=== PATIENT | male | born 1970 | race Caucasian/White ===

== ENCOUNTER → 2020-03-20 12:35 | Outpatient (BNVA) | payer OTHER, SELFPAY | PROVIDERS: PCP Internal Medicine; Referring Provider Internal Medicine; Visit Provider Dietitian, Registered | DX: Z76.89 Persons encountering health services in other specified circumstances (principal) ==

== ENCOUNTER 2020-05-07 15:49 | Outpatient (REF) | payer OTHER, SELFPAY ==
[2020-05-07 16:51] LABS: MANUAL DIFF FLAG NO
[2020-05-07 16:52] LABS: Basophils Absolute Auto 0.1 X10*3/uL (0.0-0.2); Basophils Percent Auto 0.7 % (0-2); Eosinophils Percent Auto 0.6 % (0-4); Hematocrit 45.3 % (42-52); Hemoglobin 16.2 g/dl (14.0-18.0); Imm Gran Abs Auto 0.01 X10*3/uL (0.00-0.03); Imm Gran Pct Auto 0.1 % (0.0-0.4); Lymphocytes Absolute Auto 1.9 X10*3/uL (1.2-4.9); Lymphocytes Percent Auto 27.8 % (20-40); Mean Corpuscular HGB Conc 35.8 g/dl (31.0-36.0); Mean Corpuscular Hemoglobin 29.5 pg (27.0-33.0); Mean Corpuscular Volume 82.5 fL (80-98); Mean Platelet Volume 9.6 fL (9.4-12.4); Monocytes Absolute Auto 0.5 X10*3/uL (0.1-1.2); Monocytes Percent Auto 6.8 % (2-11); Neutrophils Absolute Auto 4.3 X10*3/uL (2.0-8.3); Platelet Count 181 X10*3/uL (160-400); Red Blood Count 5.49 X10*6/uL (4.60-5.80); Red Cell Distribution Width 12.2 % (11.0-16.0); White Blood Count 6.7 X10*3/uL (4.8-10.8)
[2020-05-07 17:09] LABS: Estimated Average Glucose 120 mg/dL; Hemoglobin A1c % 5.8 %
[2020-05-07 17:25] LABS: Alanine Aminotransferase 30 U/L (0-40); Albumin Level 4.9 g/dL (3.5-5.0); Alkaline Phosphatase 60 U/L (39-117); Anion Gap 14 (12-20); Aspartate Amino Transferase 20 U/L (5-37); Bilirubin Total 0.8 mg/dL (0.0-1.0); Blood Urea Nitrogen 20 mg/dL (9-16); Calcium 9.1 mg/dL (8.4-10.2); Carbon Dioxide 23 mmol/L (22-29); Chloride 103 mmol/L (96-108); Cholesterol 260 mg/dL; Estimated Glomerular Filt Rate > 60; Glucose Fasting 98 mg/dL (60-99); HDL Cholesterol 40 mg/dL; Sodium 136 mmol/L (135-145); Total Protein 7.6 g/dL (6.5-8.0); Triglycerides 466 mg/dL
== END 2020-05-07 15:50 | disposition home or self-care (01) ==
LOC: HO.LAB 15:49
PROVIDERS: PCP Internal Medicine; Visit Provider Internal Medicine
DX: Z00.00 Encounter for general adult medical examination without abnormal findings (principal); E11.9 Type 2 diabetes mellitus without complications
CPT/HCPCS: 36415; 80053; 80061; 83036; 85025

== ENCOUNTER → 2020-07-25 10:14 | Outpatient (BNVA) | payer OTHER, SELFPAY | PROVIDERS: PCP Internal Medicine; Visit Provider Nurse Practitioner Gerontology ==

== ENCOUNTER → 2021-01-24 12:51 | Outpatient (BNVA) | payer OTHER, SELFPAY | PROVIDERS: PCP Internal Medicine; Visit Provider Nurse Practitioner Gerontology | DX: E11.9 Type 2 diabetes mellitus without complications (principal); I10 Essential (primary) hypertension; E78.5 Hyperlipidemia, unspecified; E78.1 Pure hyperglyceridemia; E66.9 Obesity, unspecified; Z68.32 Body mass index [BMI] 32.0-32.9, adult; Z79.84 Long term (current) use of oral hypoglycemic drugs; Z79.52 Long term (current) use of systemic steroids; Z79.899 Other long term (current) drug therapy | CPT/HCPCS: 82947; 99212 ==

== ENCOUNTER → 2021-06-04 12:32 | Outpatient (BNVA) | payer OTHER, SELFPAY | PROVIDERS: PCP Internal Medicine; Visit Provider Nurse Practitioner Gerontology | DX: E11.9 Type 2 diabetes mellitus without complications (principal); E78.5 Hyperlipidemia, unspecified; E78.1 Pure hyperglyceridemia; E66.9 Obesity, unspecified; I10 Essential (primary) hypertension; Z68.32 Body mass index [BMI] 32.0-32.9, adult | CPT/HCPCS: 82947; 83036; 99212 ==

== ENCOUNTER 2022-01-03 13:53 | Emergency (ER) | payer OTHER, SELFPAY ==
[2022-01-03 14:02] VITALS: BP 150/100; BP 181/103; PULSE 87; PULSE 97; RESP 16; TEMP 36.6; O2SAT 98; O2SAT 99; BMI 34.2
[2022-01-03 14:18] LABS: MANUAL DIFF FLAG NO
[2022-01-03 14:19] LABS: Basophils Absolute Auto 0.1 X10*3/uL (0.0-0.2); Basophils Percent Auto 0.8 % (0-2); Eosinophils Absolute Auto 0.1 X10*3/uL (0.0-0.4); Eosinophils Percent Auto 0.8 % (0-4); Hematocrit 43.2 % (42.0-52.0); Hemoglobin 15.8 g/dl (14.0-18.0); Imm Gran Abs Auto 0.02 X10*3/uL (0.00-0.03); Imm Gran Pct Auto 0.3 % (0.0-0.4); Lymphocytes Absolute Auto 2.3 X10*3/uL (1.2-4.9); Mean Corpuscular HGB Conc 36.6 g/dl (31.0-36.0); Mean Corpuscular Hemoglobin 29.5 pg (27.0-33.0); Mean Corpuscular Volume 80.6 fL (80.0-98.0); Mean Platelet Volume 9.3 fL (9.4-12.4); Monocytes Absolute Auto 0.4 X10*3/uL (0.1-1.2); Monocytes Percent Auto 6.6 % (2-11); Neutrophils Absolute Auto 3.4 x10*3/uL (2.0-8.3); Neutrophils Percent Auto 54.5 % (45-73); Platelet Count 166 X10*3/uL (160-400); Red Blood Count 5.36 X10*6/uL (4.60-5.80); Red Cell Distribution Width 12.8 % (11.0-16.0); White Blood Count 6.3 X10*3/uL (4.8-10.8)
[2022-01-03 14:39] LABS: Anion Gap 16 (12-20); Blood Urea Nitrogen 18 mg/dL (9-16); Calcium 9.5 mg/dL (8.4-10.2); Carbon Dioxide 25 mmol/L (22-29); Chloride 101 mmol/L (96-108); Creatinine Clr Calc Pharmacy 90.9; Estimated Glomerular Filt Rate > 60; Glucose Random 155 mg/dL (60-115); Potassium 4.5 mmol/L (3.3-5.1); Sodium 137 mmol/L (135-145)
--- NOTE | 2022-01-03 17:00 | ECG_ITS ---
Test Reason : palpitations Blood Pressure : / mmHG Vent. Rate : 074 BPM Atrial Rate : 074 BPM P-R Int : 208 ms QRS Dur : 110 ms QT Int : 396 ms P-R-T Axes : 054 -14 008 degrees QTc Int : 439 ms Normal sinus rhythm Normal ECG When compared with ECG of 30-AUG-2019 15:16, No significant change was found Referred By: Jeff Dunbar Electronically Signed By:RENNY BILLS MD
--- NOTE | 2022-01-03 17:00 | ED.GENADULT ---
HPI - General Adult General Chief complaint: General Medical Stated complaint: anxiety Time Seen by Provider: 01/03/22 15:16 Source: patient Mode of arrival: ambulatory Limitations: no limitations History of Present Illness HPI narrative: 51-year-old male history of anxiety, type 2 diabetes, hypertension, high triglycerides hyperlipidemia presenting to the emergency department with a panic attack since this morning. Patient tells me that at this time the panic attack has subsided and he is feeling back to baseline. He tells me that earlier today he noted that he was sweaty, anxious, preoccupied, slightly short of breath, tachycardic. He tells me that this feels like his typical panic attack, he reports he used to be on fluoxetine however he is no longer on it. Patient reports that this might be attributed to home stressors, tells me he has wanted his twin daughters who is very sick, he also reports he a lot going on at home and he mentions that he got anxious after realizing that he forgot to take his blood pressure medication last night. At this time patient denies anxiety, depression, suicidal ideation, homicidal ideation, chest pain, shortness of breath, nausea, vomiting, headache, dizziness, vision changes. Onset (ago): day(s) (1) Related Data Home Medications Medication Instructions Recorded Confirmed blood sugar diagnostic #10 ea 05/07/20 01/24/21 flash glucose scanning reader #1 ea 05/07/20 01/24/21 valsartan 160 mg tablet 160 mg PO DAILY 05/07/20 06/04/21 Previous Rx's Medication Instructions Recorded methylprednisolone 4 mg tablets in See Rx Instructions PO PER PKG DIR 10/11/20 a dose pack (Medrol (Mathew)) #21 ea triamcinolone acetonide 0.5 % 1 appl topical TID #15 grams 10/11/20 topical cream atorvastatin 40 mg tablet 40 mg PO BEDTIME #30 tabs 01/19/21 flash glucose sensor (FreeStyle #2 ea 02/24/21 Jessica 2 Sensor kit) fluoxetine 20 mg capsule 20 mg PO DAILY #90 caps 08/01/21 hydrochlorothiazide 25 mg tablet 25 mg PO DAILY #90 tabs 08/28/21 amlodipine 10 mg tablet 10 mg PO DAILY #30 tabs 10/13/21 metformin 500 mg tablet 500 mg PO DAILY #30 tabs 10/15/21 acarbose 25 mg tablet 25 mg PO TID #90 tabs 10/20/21 albuterol sulfate 90 mcg/actuation 2 puff PO Q4H PRN bronchospasm 11/27/21 aerosol inhaler #8.5 grams Allergies Allergy/AdvReac Type Severity Reaction Status Date / Time No Known Allergies Allergy Verified 06/04/21 12:51 Review of Systems Review of Systems: Constitutional : No Weight loss, No Fever, No Chills, No Fatigue, No Malaise ENT/Mouth : No sore throat, No Rhinorrhea Eyes: No Eye Pain, No Swelling, No Redness Cardiovascular : No Chest Pain, No SOB, No Dyspnea on Exertion, No Orthopnea, No Edema, No Palpitations Respiratory : No Cough, No Sputum, No Wheezing Gastrointestinal : No Nausea, No Vomiting, No Diarrhea, No Constipation, No abdominal Pain, No Hematochezia, No Melena Genitourinary : No Dysuria, No Urinary Frequency, No Hematuria, Musculoskeletal : No joint pain, No Myalgias, No Joint Swelling Skin : No Skin Lesions, No rash Neuro : No Weakness, No Numbness, No Dizziness, No Headache Psych : No Anxiety/Panic, No Depression All other systems reviewed and are negative Yes all other systems are reviewed and are negative [facility] Past Medical History Attestation statement: The following information was validated with the patient. Source: old records reviewed and nursing notes reviewed Medical History Asthma Essential hypertension Hyperlipidemia LDL goal <100 Hypertriglyceridemia Obesity (BMI 30-39.9) Type 2 diabetes mellitus without complications Surgical History History of removal of skin mole Family History Family History Father CHF (congestive heart failure) Afib Myocardial infarction CVD (cardiovascular disease) Discoid lupus Mother CAD (coronary artery disease) Social History Social History Household Members: Spouse and Children Housing: House Alcohol intake: never Patient Tobacco Use Status: Never used Tobacco Second Hand Smoke Exposure: Yes Advance Directives: No Advance Directives Information Provided: No service: No Current occupational status: employed and unemployed 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 Oriented X3.? No acute distress.? Head: Normocephalic, atraumatic, no step-offs or deformities Eyes: Pupils equal, round and reactive to light.? ENT: Pharynx normal.? Neck: Normal inspection.? Neck supple.? CVS: Normal heart rate and rhythm.? Pulses normal.? Respiratory: No respiratory distress.? Breath sounds normal.? Abdomen: Soft and nontender.? Skin: Skin warm and dry.? Normal skin color.? Normal skin turgor.? Extremities: No lower extremity edema.? No calf ttp, neagtive kaci. 5/5 strength to bilateral upper and lower extremities Neuro: Oriented X 3.? No motor deficit.? No sensory deficit. CN 2-12 intact Course Reevaluation(s) Reevaluation #1: CBC within normal limits. Chemistry with no acute electrolyte abnormalities. Troponin and EKG pending. Time: 17:11 Reevaluation #2: Troponin negative. EKG pending. Vital signs stable. Time: 17:42 Reevaluation #3: Trop negative, ekg non ischemic unlikely ACS. At this time patient will be discharged home advised to follow-up with PCP. Still refusing crisis evaluation. Denies SI and HI. I will give him follow-up with [facility] and his PCP. Advised him to return with new or worsening symptoms. Time: 17:53 Medical Decision Making [facility] Narrative Medical decision making narrative: 1645 51 yo m presents s/p panic attack. Tells me he is feeling better. Tells me this happens often. Not on medication for it. Denies SI and HI. Physical examination benign. Likely panic attack. I do not suspect ACS on this patient. Patient's blood pressure was initially elevated likely secondary to anxiety however after deep breathing and lying down for a while vital signs were repeated with significant improvement. Patient also notes that he is feeling much better. Patient denies any symptoms associated with his high blood pressure earlier, denies headache, vision changes, dizziness, altered mental status. I did offer for patient to speak to the crisis team however he refused. He tells me he will follow up with his primary care provider. I offered him a short script of anxiety medication however he tells me he will follow-up with his PCP. At this time is to obtain an EKG and basic labs Medical Records Medical records reviewed: Yes I reviewed the patient's medical records. Lab Data Lab results reviewed: Yes I reviewed the patient's lab results. Result diagrams: 01/03/22 14:14 01/03/22 14:14 Labs: Lab Results 01/03/22 01/03/22 01/03/22 Range/Units 14:14 14:14 14:14 WBC 6.3 (4.8-10.8) X10*3/uL RBC 5.36 (4.60-5.80) X10*6/uL Hgb 15.8 (14.0-18.0) g/dl Hct 43.2 (42.0-52.0) % MCV 80.6 (80.0-98.0) fL MCH 29.5 (27.0-33.0) pg MCHC 36.6 H (31.0-36.0) g/dl RDW 12.8 (11.0-16.0) % Plt Count 166 (160-400) X10*3/uL MPV 9.3 L (9.4-12.4) fL Immature Gran % (Auto) 0.3 (0.0-0.4) % Neut % (Auto) 54.5 (45-73) % Lymph % (Auto) 37.0 (20-40) % Grant % (Auto) 6.6 (2-11) % Eos % (Auto) 0.8 (0-4) % Baso % (Auto) 0.8 (0-2) % Lymph # (Auto) 2.3 (1.2-4.9) X10*3/uL Grant # (Auto) 0.4 (0.1-1.2) X10*3/uL Eos # (Auto) 0.1 (0.0-0.4) X10*3/uL Baso # (Auto) 0.1 (0.0-0.2) X10*3/uL Abs Immat Gran (auto) 0.02 (0.00-0.03) X10*3/uL Absolute Neuts (auto) 3.4 (2.0-8.3) x10*3/uL Absolute Nucleated RBC 0.000 (0.0-0.012) X10*3/uL Nucleated RBC % (auto) 0.0 (0.0-0.2) /100WBC Sodium 137 (135-145) mmol/L Potassium 4.5 (3.3-5.1) mmol/L Chloride 101 (96-108) mmol/L Carbon Dioxide 25 (22-29) mmol/L Anion Gap 16 (12-20) BUN 18 H (9-16) mg/dL Creatinine 1.10 (0.5-1.4) mg/dL Estim Creat Clear Calc 90.9 Estimated GFR > 60 Random Glucose 155 H (60-115) mg/dL Calcium 9.5 (8.4-10.2) mg/dL Troponin I High Sens 3.6 (<3.5-35.0) ng/L Critical Care Time Critical Care Time Critical Care Time: No Discharge Plan Discharge Clinical Impression: Panic attack, Anxiety Patient Disposition: Home, Self-Care Instructions: Anxiety (ED), Panic Attack (ED) Additional Instructions: Take your medications as prescribed. If you were prescribed antibiotics today, it is important that you take your medication to their entirety, do not skip any doses, do not finish them early. Follow-up with your primary care provider this week. Return to the emergency department with new or worsening symptoms. Such as fevers, chills, chest pain, shortness of breath, nausea, vomiting, dizziness, headache, vision changes, lethargy In case of emergency call 911 Prescriptions: No Action atorvastatin 40 mg tablet 40 mg PO BEDTIME Qty: 30 11RF (DME) FreeStyle Jessica 2 Sensor Kit See Rx Instructions .ROUTE .MEDSUPPLY Qty: 2 11RF Rx Instructions: As directed every 2 weeks fluoxetine 20 mg capsule 20 mg PO DAILY Qty: 90 8RF hydrochlorothiazide 25 mg tablet 25 mg PO DAILY Qty: 90 1RF amlodipine 10 mg tablet 10 mg PO DAILY Qty: 30 8RF metformin 500 mg tablet 500 mg PO DAILY Qty: 30 6RF Rx Instructions: take with dinner acarbose 25 mg tablet 25 mg PO TID Qty: 90 6RF albuterol sulfate 90 mcg/actuation HFA aerosol inhaler 2 puff PO Q4H PRN (Reason: bronchospasm) Qty: 8.5 0RF valsartan 160 mg tablet 160 mg PO DAILY (DME) FreeStyle Precision Wilfrido Strips Strip See Rx Instructions .ROUTE .MEDSUPPLY Qty: 10 Rx Instructions: As directed (DME) FreeStyle Jessica 14 Day [place] Misc See Rx Instructions topical 3XW Qty: 1 Rx Instructions: As directed triamcinolone acetonide 0.5 % cream 1 appl topical TID Qty: 15 0RF methylprednisolone [Medrol (Mathew)] 4 mg tablets,dose pack See Rx Instructions PO PER PKG DIR Qty: 21 0RF Rx Instructions: PO PER PKG DIR Referrals: [facility] [Provider Group] - 1 day Lamont Latham MD [Primary Care Provider] - 2 days
[2022-01-03 17:36] LABS: Troponin-I High Sensitivity 3.6 ng/L (<3.5-35.0)
[2022-01-03 17:48] VITALS: BP 154/94; PULSE 88; RESP 14; O2SAT 100
== END 2022-01-03 17:56 | disposition home or self-care (01) ==
PROVIDERS: Physician Assistant; Emergency Provider Student in an Organized Health Care Education/Training Program; PCP Internal Medicine
DX: F41.0 Panic disorder [episodic paroxysmal anxiety] (principal); F41.9 Anxiety disorder, unspecified; I10 Essential (primary) hypertension; E78.5 Hyperlipidemia, unspecified; E11.9 Type 2 diabetes mellitus without complications; E66.9 Obesity, unspecified; Z68.34 Body mass index [BMI] 34.0-34.9, adult; Z72.89 Other problems related to lifestyle; Z63.79 Other stressful life events affecting family and household; Z79.02 Long term (current) use of antithrombotics/antiplatelets; Z79.899 Other long term (current) drug therapy; Z79.84 Long term (current) use of oral hypoglycemic drugs
CPT/HCPCS: 36415; 80048; 84484; 85025; 93005; 99283

== ENCOUNTER 2022-08-19 06:39 | Emergency (ER) | payer OTHER, SELFPAY ==
--- NOTE | 2022-08-19 | ECG_ITS ---
Test Reason : hypertension Blood Pressure : / mmHG Vent. Rate : 080 BPM Atrial Rate : 080 BPM P-R Int : 200 ms QRS Dur : 108 ms QT Int : 390 ms P-R-T Axes : 044 -21 026 degrees QTc Int : 449 ms Normal sinus rhythm Possible Left atrial enlargement Minimal voltage criteria for LVH, may be normal variant ( Thiago product ) Borderline ECG When compared with ECG of 03-JAN-2022 17:35, No significant change was found Referred By: Emily Sandoval Electronically Signed By:RENNY BILLS MD
[2022-08-19 06:44] VITALS: BP 203/119; BP 220/120; PULSE 84; PULSE 88; RESP 20; TEMP 36.4; O2SAT 97; BMI 33.0
[2022-08-19 06:56] LABS: Glucose, Whole Blood 216 mg/dL (60-115)
--- NOTE | 2022-08-19 07:13 | ED_ITS ---
HPI - General Adult General Chief complaint: General Medical Stated complaint: HIGH BP 220/110,ANXIETY PER EMS Time Seen by Provider: 08/19/22 06:49 Source: patient Mode of arrival: ambulatory Limitations: no limitations History of Present Illness HPI narrative: 52-year-old male history of anxiety, high blood pressure controlled with hydrochlorothiazide and amlodipine, woke up with this morning feeling anxious an d palpitation, checked his blood pressure was high called 911 for further evaluation, patient had similar symptoms in the past and was diagnosed with anxiety. No headache, no blurry vision, no CP, no SOB, no abdominal pain, no nausea, no vomiting, no diarrhea. Related Data Home Medications Medication Instructions Recorded Confirmed blood sugar diagnostic #10 ea 05/07/20 01/06/22 flash glucose scanning reader #1 ea 05/07/20 01/06/22 valsartan 160 mg tablet 160 mg PO DAILY 05/07/20 01/06/22 Previous Rx's Medication Instructions Recorded flash glucose sensor (FreeStyle #2 ea 02/24/21 Jessica 2 Sensor kit) amlodipine 10 mg tablet 10 mg PO DAILY #30 tabs 10/13/21 metformin 500 mg tablet 500 mg PO DAILY #30 tabs 10/15/21 acarbose 25 mg tablet 25 mg PO TID #90 tabs 10/20/21 albuterol sulfate 90 mcg/actuation 2 puff PO Q4H PRN bronchospasm 11/27/21 aerosol inhaler #8.5 grams atorvastatin 40 mg tablet 40 mg PO BEDTIME #30 tabs 01/06/22 fluoxetine 20 mg capsule 20 mg PO DAILY #90 caps 01/06/22 hydrochlorothiazide 25 mg tablet 25 mg PO DAILY #90 tabs 01/06/22 azithromycin 250 mg tablet See Rx Instructions PO .COMPLEX #6 05/20/22 tabs benzonatate 100 mg capsule 100 mg PO TID PRN cough #60 caps 05/20/22 nirmatrelvir 300 mg (150 mg See Rx Instructions PO .COMPLEX 08/01/22 x2)-ritonavir 100 mg tablet,dose #30 ea pack(EUA) (Paxlovid) Allergies Allergy/AdvReac Type Severity Reaction Status Date / Time No Known Allergies Allergy Verified 01/06/22 14:02 Review of Systems Review of Systems: All other systems are reviewed and are negative Constitutional: Reports as per HPI and Reports no additional constitutional complaints Eyes: Reports as per HPI and Reports no additional eye complaints Reports system reviewed and no additional complaints, except as documented Cardiovascular: Reports as per HPI and Reports no additional cardiovascular complaints Respiratory: Reports as per HPI and Reports no additional respiratory complaints Gastrointestinal: Reports as per HPI and Reports no additional gastrointestinal complaints Genitourinary: Reports no additional female genitourinary complaints Musculoskeletal: Reports no additional musculoskeletal complaints Skin/Breast: Reports system reviewed and no additional complaints, except as docu Psychiatric: Reports no additional psychiatric complaints Endocrine: Reports no additional endocrine complaints Hematologic/Lymphatic: Reports no additional hematologic/lymphatic complaints Allergic/Immunologic: Reports no additional allergic/immunologic complaints Reports system reviewed and no additional complaints, except as documented and Reports Abnormal speech present [facility] Past Medical History Medical History Asthma Essential hypertension Hyperlipidemia LDL goal <100 Hypertriglyceridemia Obesity (BMI 30-39.9) Type 2 diabetes mellitus without complications Surgical History History of removal of skin mole Family History Family History Father CHF (congestive heart failure) Afib Myocardial infarction CVD (cardiovascular disease) Discoid lupus Mother CAD (coronary artery disease) Social History Social History Household Members: Spouse and Children Housing: House Alcohol intake: never Patient Tobacco Use Status: Never used Tobacco Smoked in Last 30 Days: No e-Cigarette/Vaping Use: Never Used Second Hand Smoke Exposure: Yes Use of substances other than those prescribed or required for medical reasons: No Advance Directives: No Advance Directives Information Provided: No service: No Current occupational status: employed and unemployed 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 Patient declined headache, blurry vision, neck pain, chest pain or abdominal pain. Medications Administered Discontinued Medications Generic Name Dose Route Start Last Admin Trade Name Roxann PRN Reason Stop Dose Admin Amlodipine Besylate 10 mg 08/19/22 09:28 08/19/22 09:49 Amlodipine Besylate 10 Mg Tablet PO 08/19/22 09:29 10 mg ONCE ONE Administration Protocol Hydrochlorothiazide 50 mg 08/19/22 09:28 08/19/22 10:06 Hydrochlorothiazide 50 Mg Tablet PO 08/19/22 09:29 50 mg ONCE ONE Administration Protocol Lorazepam 1 mg 08/19/22 07:12 08/19/22 07:22 Lorazepam 1 Mg Tablet PO 08/19/22 07:13 1 mg ONCE ONE Administration Medical Decision Making Differential Diagnosis Differential Diagnoses: The differential diagnosis associated with the presentation includes (Anxiety, anemia, ACS, electrolyte disturbance, dehydration, acute kidney insufficiency apparent) Lab Data MDM Lab Attestation statement: I reviewed the patient's lab results. 08/19/22 07:05 08/19/22 07:05 Labs: Lab Results 08/19/22 08/19/22 08/19/22 Range/Units 06:48 07:05 07:05 WBC 5.8 (4.8-10.8) X10*3/uL RBC 5.42 (4.60-5.80) X10*6/uL Hgb 16.1 (14.0-18.0) g/dl Hct 44.3 (42.0-52.0) % MCV 81.7 (80.0-98.0) fL MCH 29.7 (27.0-33.0) pg MCHC 36.3 H (31.0-36.0) g/dl RDW 12.8 (11.0-16.0) % Plt Count 183 (160-400) X10*3/uL MPV 9.5 (9.4-12.4) fL Absolute Nucleated RBC 0.000 (0.0-0.012) X10*3/uL Nucleated RBC % (auto) 0.0 (0.0-0.2) /100WBC Sodium 137 (135-145) mmol/L Potassium 4.2 (3.3-5.1) mmol/L Chloride 103 (96-108) mmol/L Carbon Dioxide 25 (22-29) mmol/L Anion Gap 13 (12-20) BUN 19 H (9-16) mg/dL Creatinine 1.11 (0.5-1.4) mg/dL Estim Creat Clear Calc 87.5 Estimated GFR > 60 POC Glucose 216 H (60-115) mg/dL Random Glucose 213 H (60-115) mg/dL Calcium 8.9 D (8.4-10.2) mg/dL Total Bilirubin 0.6 (0.0-1.0) mg/dL AST 17 (5-37) U/L ALT 23 (0-40) U/L Alkaline Phosphatase 74 (39-117) U/L Troponin I High Sens (<3.5-35.0) ng/L Total Protein 7.3 (6.5-8.0) g/dL Albumin 4.2 (3.5-5.0) g/dL Urine Color Urine Appearance Urine pH (5.0-9.0) Ur Specific Allen (1.005-1.025) Urine Protein (Neg-Trace) mg/dL Urine Glucose (UA) (Negative) mg/dL Urine Ketones (Negative) mg/dL Urine Blood (Negative) Urine Nitrite (Negative) Ur Leukocyte Esterase (Negative) 08/19/22 08/19/22 Range/Units 07:05 07:48 WBC (4.8-10.8) X10*3/uL RBC (4.60-5.80) X10*6/uL Hgb (14.0-18.0) g/dl Hct (42.0-52.0) % MCV (80.0-98.0) fL MCH (27.0-33.0) pg MCHC (31.0-36.0) g/dl RDW (11.0-16.0) % Plt Count (160-400) X10*3/uL MPV (9.4-12.4) fL Absolute Nucleated RBC (0.0-0.012) X10*3/uL Nucleated RBC % (auto) (0.0-0.2) /100WBC Sodium (135-145) mmol/L Potassium (3.3-5.1) mmol/L Chloride (96-108) mmol/L Carbon Dioxide (22-29) mmol/L Anion Gap (12-20) BUN (9-16) mg/dL Creatinine (0.5-1.4) mg/dL Estim Creat Clear Calc Estimated GFR POC Glucose (60-115) mg/dL Random Glucose (60-115) mg/dL Calcium (8.4-10.2) mg/dL Total Bilirubin (0.0-1.0) mg/dL AST (5-37) U/L ALT (0-40) U/L Alkaline Phosphatase (39-117) U/L Troponin I High Sens 3.7 (<3.5-35.0) ng/L Total Protein (6.5-8.0) g/dL Albumin (3.5-5.0) g/dL Urine Color Yellow Urine Appearance Clear Urine pH 6.0 (5.0-9.0) Ur Specific Allen 1.010 (1.005-1.025) Urine Protein Negative (Neg-Trace) mg/dL Urine Glucose (UA) 250 H (Negative) mg/dL Urine Ketones Negative (Negative) mg/dL Urine Blood Negative (Negative) Urine Nitrite Negative (Negative) Ur Leukocyte Esterase Negative (Negative) Independent Interpretation I performed an independent interpretation of an: EKG (Normal sinus rhythm at 80 beats per minutes, LVH, left axis deviation, normal intervals, no significant change from previous EKG.) Discharge Plan Discharge Clinical Impression: Essential hypertension, Anxiety Patient Disposition: Home, Self-Care Instructions: Hypertension (ED), Anxiety (ED) Prescriptions: No Action (DME) FreeStyle Jessica 2 Sensor Kit See Rx Instructions .ROUTE .MEDSUPPLY Qty: 2 11RF Rx Instructions: As directed every 2 weeks amlodipine 10 mg tablet 10 mg PO DAILY Qty: 30 8RF metformin 500 mg tablet 500 mg PO DAILY Qty: 30 6RF Rx Instructions: take with dinner acarbose 25 mg tablet 25 mg PO TID Qty: 90 6RF albuterol sulfate 90 mcg/actuation HFA aerosol inhaler 2 puff PO Q4H PRN (Reason: bronchospasm) Qty: 8.5 0RF azithromycin 250 mg tablet See Rx Instructions PO .COMPLEX Qty: 6 0RF Rx Instructions: take 500 mg today (day 1), then 250 mg for 4 days (days 2-5) PO benzonatate 100 mg capsule 100 mg PO TID PRN (Reason: cough) Qty: 60 0RF Paxlovid (EUA) 300 mg (150 mg x 2)-100 mg tablets,dose pack See Rx Instructions PO .COMPLEX Qty: 30 0RF Rx Instructions: take TWO 150 mg tablets of nirmatrelvir with ONE 100 mg tablet of ritonavir twice daily for 5 days PO valsartan 160 mg tablet 160 mg PO DAILY (DME) FreeStyle Precision Wilfrido Strips Strip See Rx Instructions .ROUTE .MEDSUPPLY Qty: 10 Rx Instructions: As directed (DME) FreeStyle Jessica 14 Day [place] Misc See Rx Instructions topical 3XW Qty: 1 Rx Instructions: As directed atorvastatin 40 mg tablet 40 mg PO BEDTIME Qty: 30 11RF fluoxetine 20 mg capsule 20 mg PO DAILY Qty: 90 8RF hydrochlorothiazide 25 mg tablet 25 mg PO DAILY Qty: 90 1RF Referrals: Lamont Latham MD [Primary Care Provider] -
[2022-08-19 07:16] LABS: Hematocrit 44.3 % (42.0-52.0); Hemoglobin 16.1 g/dl (14.0-18.0); Mean Corpuscular HGB Conc 36.3 g/dl (31.0-36.0); Mean Corpuscular Hemoglobin 29.7 pg (27.0-33.0); Mean Corpuscular Volume 81.7 fL (80.0-98.0); Mean Platelet Volume 9.5 fL (9.4-12.4); Platelet Count 183 X10*3/uL (160-400); Red Blood Count 5.42 X10*6/uL (4.60-5.80); Red Cell Distribution Width 12.8 % (11.0-16.0); White Blood Count 5.8 X10*3/uL (4.8-10.8)
[2022-08-19] MEDS: LORazepam 1 MG TABLET PO (07:22)
--- OUTSIDE RECORDS SUMMARY | 2022-08-19 07:24 | XMS_ITS | Continuity of Care Document ---
:1970 Author Organization [facility] Address [address] [place] [id number] Care Team Providers Name Role Phone Yeison MOULTON, Lamont Fall Primary Care Physician [place] [facility] [place]): [place] - 09/14/19 [facility] [address] [place] [id number]- [facility] Attending Physician: Deloris Kwan Admitting Physician: Deloris Kwan Referring Physician: Deloris Kwan
[2022-08-19 07:31] LABS: Alanine Aminotransferase 23 U/L (0-40); Albumin Level 4.2 g/dL (3.5-5.0); Alkaline Phosphatase 74 U/L (39-117); Anion Gap 13 (12-20); Aspartate Amino Transferase 17 U/L (5-37); Bilirubin Total 0.6 mg/dL (0.0-1.0); Blood Urea Nitrogen 19 mg/dL (9-16); Calcium 8.9 mg/dL (8.4-10.2); Carbon Dioxide 25 mmol/L (22-29); Chloride 103 mmol/L (96-108); Creatinine Clr Calc Pharmacy 87.5; Estimated Glomerular Filt Rate > 60; Glucose Random 213 mg/dL (60-115); Potassium 4.2 mmol/L (3.3-5.1); Sodium 137 mmol/L (135-145); Total Protein 7.3 g/dL (6.5-8.0)
[2022-08-19 07:38] LABS: Troponin-I High Sensitivity 3.7 ng/L (<3.5-35.0)
[2022-08-19 08:02] LABS: Appearance Urine Clear; Color Urine Yellow; Glucose Urine UA 250 mg/dL (Negative); Leukocyte Esterase Urine Negative (Negative); Nitrite Urine Negative (Negative); Urine Blood Negative (Negative); Urine Ketones Negative (Negative); Urine Protein Negative (Neg-Trace)
[2022-08-19] MEDS: amLODIPine Besylate 10 MG TABLET PO (09:49)
[2022-08-19 09:50] VITALS: BP 182/113; PULSE 81; RESP 18; O2SAT 94
[2022-08-19] MEDS: hydroCHLOROthiazide 50 MG TABLET PO (10:06)
[2022-08-19 11:25] VITALS: BP 180/121; PULSE 86; RESP 14; O2SAT 97
--- NOTE | 2022-08-19 11:29 | PC.NURSE ---
Dr Sandoval aware that BP remains elevated. Pt denies CP, denies SOB, denies GOODE or blurred vision. Neuros intact. Ambulatory to BR, gait steady
== END 2022-08-19 11:33 | disposition home or self-care (01) ==
PROVIDERS: Emergency Provider Emergency Medicine; PCP Internal Medicine
DX: I10 Essential (primary) hypertension (principal); F41.9 Anxiety disorder, unspecified; E11.9 Type 2 diabetes mellitus without complications; E78.5 Hyperlipidemia, unspecified; Z79.899 Other long term (current) drug therapy; Z79.84 Long term (current) use of oral hypoglycemic drugs; Z79.02 Long term (current) use of antithrombotics/antiplatelets
CPT/HCPCS: 36415; 80053; 81003; 82947; 84484; 85027; 93005; 99283; 99284

== ENCOUNTER 2022-11-20 08:37 | Day surgery (SDC) | payer OTHER, SELFPAY ==
[2022-11-20 07:51] VITALS: BMI 31.9
[2022-11-20 08:50] VITALS: BP 116/112; PULSE 109; RESP 18; TEMP 36.9; O2SAT 96
[2022-11-20] MEDS: Lactated Ringers 1,000 ML 100 ML IVCONT (09:14)
[2022-11-20 09:18] VITALS: BP 126/89; PULSE 93
--- NOTE | 2022-11-20 09:19 | PC.NURSE ---
dr. carrion was made aware of bp and pulse results during admission. stated she would medicate patient after dr. goins and anesthesia consents were obtained. consents obtained. iv placed. bp re-checked and result was 126/89, p 93. doctor made aware and author will continue to monitor. no interventions at this time per dr. carrion. patient states feels much calmer. diaphoresis has subsided.
[2022-11-20 09:25] LABS: Glucose, Whole Blood 167 mg/dL (60-115)
--- NOTE | 2022-11-20 09:43 | MHC.SHP ---
Pre-Procedural Eval Section A Date of Service: 11/20/22 The patient is an INPATIENT: No Changes since office visit: No Cold of Flu in the past 2 weeks, No New Medical Problems, No Changes in Medication and No Patient answered all questions The History & Physical has been completed within 30 days and I have reviewed it.: Yes Section B Chief Complaint: Dysphagia, unspecified,Screening Allergies: Allergies Allergy/AdvReac Type Severity Reaction Status Date / Time No Known Allergies Allergy Verified 11/20/22 09:21 Plan I have reviewed the history and physical and performed a pertinent physical examination on my patient. No changes have occurred unless specified. Time Spent With Patient Time: Total time managing care of this patient today ____ minutes.
--- NOTE | 2022-11-20 09:45 | P.CONAN_ITS ---
Documented by User: Nohemi Sinha NP 11/19/22 10:53 HPI - Anesthesia Eval Consult details Narrative: 52yo M for Upper Endoscopy and Colonoscopy PMF Active Problems Active Problems: All Active Problems (Updated 08/27/22 @ 12:20 by Lamont Latham MD) Panic disorder (Acute) Contact dermatitis (Acute) Urticaria (Acute) Type 2 diabetes mellitus without complications (Acute) Hyperlipidemia LDL goal <100 (Acute) Hypertriglyceridemia (Acute) Essential hypertension (Acute) Obesity (BMI 30-39.9) (Acute) Physical exam (Acute) Past Medical History Medical History Asthma Depression Essential hypertension Hyperlipidemia LDL goal <100 Hypertriglyceridemia Obesity (BMI 30-39.9) Type 2 diabetes mellitus without complications Family History Family History Father CHF (congestive heart failure) Afib Myocardial infarction CVD (cardiovascular disease) Discoid lupus Mother CAD (coronary artery disease) Surgical History Surgical History History of removal of skin mole Social History Social History Household Members: Spouse and Children Housing: House Alcohol intake: never Patient Tobacco Use Status: Never used Tobacco e-Cigarette/Vaping Use: Never Used Second Hand Smoke Exposure: Yes Are you DNR?: No Advance Directives: No Advance Directives Information Provided: Yes Nutrition Risks: No Nutritional Risk service: No Current occupational status: employed and unemployed 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 Cognitive needs: No Hearing needs: No Vision needs: No Meds Allergies Allergy/AdvReac Type Severity Reaction Status Date / Time No Known Allergies Allergy Verified 11/20/22 09:21 Home Medications Medication Instructions Recorded Confirmed Last Taken Type blood sugar diagnostic #10 ea 05/07/20 09/17/22 Unknown History flash glucose scanning reader #1 ea 05/07/20 09/17/22 Unknown History valsartan 160 mg tablet 160 mg PO DAILY 05/07/20 09/17/22 Unknown History fluoxetine 20 mg capsule 20 mg PO DAILY 11/19/22 11/19/22 Unknown History Exam Exam Date and Time: November 19, 2022 105 Pertinent Lab Results Pertinent Lab Results: Laboratory Tests 08/19/22 08/19/22 07:05 07:05 WBC 5.8 Hgb 16.1 Hct 44.3 Plt Count 183 Sodium 137 Potassium 4.2 Chloride 103 Carbon Dioxide 25 BUN 19 H Creatinine 1.11 Narrative Narrative: EKG 07/2022 Vent. Rate : 080 BPM ? ? Atrial Rate : 080 BPM ?? P-R Int : 200 ms? QRS Dur : 108 ms ? ? QT Int : 390 ms ? ? ? P-R-T Axes : 044 -21 026 degrees ?? QTc Int : 449 ms ? Normal sinus rhythm Possible Left atrial enlargement Minimal voltage criteria for LVH, may be normal variant ( Thiago product ) Borderline ECG When compared with ECG of 03-JAN-2022 17:35, No significant change was found Assessment and Plan Assessment Anesthesia Assessment: Chart Reviewed Documented by User: Melody Chen DO 11/20/22 10:09 [facility] Past Medical History Medical History Asthma Depression Essential hypertension Hyperlipidemia LDL goal <100 Hypertriglyceridemia Obesity (BMI 30-39.9) Type 2 diabetes mellitus without complications Family History Family History Father CHF (congestive heart failure) Afib Myocardial infarction CVD (cardiovascular disease) Discoid lupus Mother CAD (coronary artery disease) Surgical History Surgical History History of removal of skin mole History of Problems with Anesthesia: No Social History Social History Household Members: Spouse and Children Housing: House Alcohol intake: never Patient Tobacco Use Status: Never used Tobacco e-Cigarette/Vaping Use: Never Used Second Hand Smoke Exposure: Yes Are you DNR?: No Advance Directives: No Advance Directives Information Provided: Yes Nutrition Risks: No Nutritional Risk service: No Current occupational status: employed and unemployed 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 Cognitive needs: No Hearing needs: No Vision needs: No Meds Allergies Allergy/AdvReac Type Severity Reaction Status Date / Time No Known Allergies Allergy Verified 11/20/22 09:21 Home Medications Medication Instructions Recorded Confirmed Last Taken Type blood sugar diagnostic #10 ea 05/07/20 09/17/22 Unknown History flash glucose scanning reader #1 ea 05/07/20 09/17/22 Unknown History valsartan 160 mg tablet 160 mg PO DAILY 05/07/20 09/17/22 Unknown History fluoxetine 20 mg capsule 20 mg PO DAILY 11/19/22 11/19/22 Unknown History Exam Exam Date and Time: November 20, 2022 0945 Height,Weight and Vital Signs: Vital Signs Temperature 98.4 F 11/20/22 08:50 Pulse Rate 109 H 11/20/22 08:50 Respiratory Rate 18 11/20/22 08:50 Blood Pressure 116/112 H 11/20/22 08:50 Pulse Oximetry 96 11/20/22 08:50 Oxygen Delivery Method Room Air 11/20/22 08:50 Temperature 98.4 F 11/20/22 08:50 Pulse Rate 93 11/20/22 09:18 Respiratory Rate 18 11/20/22 08:50 Blood Pressure 126/89 11/20/22 09:18 Pulse Oximetry 96 11/20/22 08:50 Oxygen Delivery Method Room Air 11/20/22 08:50 Height 5 ft 8 in Weight 95.254 kg Airway Mallampati Class: II TM Dist: >3cm Neck ROM: Full Loose/Missing/Broken Teeth: No Heart: S1S2 Lungs: CTAB Assessment and Plan Assessment Anesthesia Assessment: Anesthesia Plan Discussed and Chart Reviewed Final Anesthetic Review History of Problems with Anesthesia: No NPO: Yes ASA Class: II Final Preanesthetic Review: No Changes in Pt Med Stat, Meds/Allgs Chart Reviewed, Consent Obtained/Reviewed and Anes Risks/Benef Reviewed Patient Risk: Low Procedure Risk: Low Anesthetic Plan Anesthetic Plan: MAC: and Agree w/ Assess. and Plan Disposition: Standard PACU
[2022-11-20 10:22] VITALS: BP 122/74; PULSE 85; RESP 16; TEMP 36.3; O2SAT 92
--- NOTE | 2022-11-20 10:25 | P.BOP_ITS ---
Brief Operative Note Date of Service: 11/20/22 Pre-op diagnosis: dysphagia screening Post-op diagnosis: same Procedure: egd colonoscopy Surgeon: Jalen Michelle Anesthesia: MAC Was an Cd Reactor Operator Head used for this Procedure?: No Estimated blood loss (mL): 2
[2022-11-20 10:38] VITALS: BP 130/76; PULSE 95; RESP 16; TEMP 36.2; O2SAT 92
--- NOTE | 2022-11-20 10:55 | OP_ITS ---
DATE OF SERVICE: 11/20/2022 SURGEON: Jalen Michelle MD INDICATIONS: 1. Dysphagia. 2. Colon cancer screening. PREOPERATIVE DIAGNOSIS: POSTOPERATIVE DIAGNOSIS: PROCEDURE PERFORMED: ESTIMATED BLOOD LOSS: COMPLICATIONS: ANESTHESIA: Monitored anesthesia care. ASSISTANTS: SPECIMENS: PROCEDURES PERFORMED: 1. Upper endoscopy with biopsy. 2. Colonoscopy to the terminal ileum with biopsy and snare polypectomy. DESCRIPTION OF PROCEDURE: A history and physical were performed. The risks and benefits of the procedure were explained to the patient. Informed consent was obtained. The patient was placed in the left lateral decubitus position. The Olympus video gastroscope was introduced into the esophagus, stomach, and duodenum. Examination was performed, and the scope was removed. He was repositioned for the colonoscopy. A digital rectal exam was performed and was found to be normal. The Olympus pediatric video colonoscope was introduced into the rectum and advanced to the cecum without difficulty. The cecum was identified by transillumination, palpation, and identification of the ileocecal valve. Examination was performed and the scope was removed. He tolerated both procedures well and was taken to the recovery room in stable condition. FINDINGS: Upper endoscopy: 1. Esophagus. The esophagus was normal. The EG junction was irregular, this was biopsied. 2. Stomach. The stomach showed no evidence of masses, ulcers, or polyps. Antral biopsies were obtained to evaluate for H. pylori. 3. Duodenum. The bulb and second portion were normal. Colonoscopy: The terminal ileum was examined and appeared normal. The visualized colonic mucosa was within normal limits, without evidence of masses or ulcers. The quality of the prep was good. Two polyps were identified in the right colon. The first measured less than 5 mm, and was removed with biopsy forceps. The second was approximately 8 mm and was removed with a snare. No other polyps were seen. Retroflexed examination showed some small internal hemorrhoids. IMPRESSION: 1. Normal upper endoscopy. 2. Colon polyps. RECOMMENDATION: Follow up the biopsy results. MD MADDI Dupree/BING / [id number]
== END 2022-11-20 10:50 | disposition home or self-care (01) ==
PROVIDERS: PCP Internal Medicine; Visit Provider Internal Medicine Gastroenterology
PROC: (CPT 45385; principal; 2022-11-20 10:10)
DX: Z12.11 Encounter for screening for malignant neoplasm of colon (principal); D12.2 Benign neoplasm of ascending colon; R13.10 Dysphagia, unspecified; K64.8 Other hemorrhoids; I10 Essential (primary) hypertension; E78.00 Pure hypercholesterolemia, unspecified; E11.9 Type 2 diabetes mellitus without complications; F32.A Depression, unspecified; Z79.84 Long term (current) use of oral hypoglycemic drugs; Z79.899 Other long term (current) drug therapy
CPT/HCPCS: 45385; 45380; 43239; 82947; 88305; 88342

== ENCOUNTER 2023-07-02 09:29 | Outpatient (AMB) | payer OTHER, SELFPAY ==
[2023-07-02 09:32] VITALS: BP 168/90; PULSE 69; O2SAT 100; BMI 29.2
--- NOTE | 2023-07-02 09:32 | A.OFFPC_ITS ---
Vital Signs 07/02/23 09:32 Height 5 ft 8 in Weight 192 lb 0.4 oz BMI 29.2 BP 168/90 H Blood Pressure Location Lt brachial Position Sitting Pulse 69 Pulse Source Pulse Oximeter Pulse Oximetry (%) 100 Oxygen Delivery Method Room Air Intake Visit Reasons: DM Follow Up Intake Note: Patient is here to follow up on DM Allergies No Known Allergies Allergy (Verified 07/02/23 09:35) Medication List - Last Reconciled 07/02/23 by Lamont Latham MD acarbose 25 mg PO TID albuterol sulfate 90 mcg/actuation 2 puffs PO Q4H PRN amlodipine 10 mg PO DAILY atorvastatin 40 mg PO BEDTIME azithromycin take 500 mg today (day 1), then 250 mg for 4 days (days 2-5) PO benzonatate 100 mg PO TID PRN blood sugar diagnostic As directed flash glucose scanning reader As directed flash glucose sensor ([employer] Jessica 2 Sensor kit) As directed every 2 weeks fluoxetine 20 mg PO DAILY hydrochlorothiazide 25 mg PO DAILY metformin 500 mg PO DAILY sertraline 50 mg PO DAILY valsartan 160 mg PO DAILY Tobacco use date assessed: 07/02/23 Dental Screening Dental Screen Date: 07/02/23 HPI DM Follow Up HPI Details DM HTN and hyperlipidemia; non-compliant; should be seeing nephrology for his HTN; not monitoring his BS;poor diet; A1C over 12 PFSH Medical History Depression Hypertriglyceridemia Asthma Essential hypertension Hyperlipidemia LDL goal <100 Obesity (BMI 30-39.9) Type 2 diabetes mellitus without complications Surgical History History of removal of skin mole Family History Father CHF (congestive heart failure) Afib Myocardial infarction CVD (cardiovascular disease) Discoid lupus Mother CAD (coronary artery disease) Social History Household Members: Spouse and Children Housing: House Alcohol intake: never Patient Tobacco Use Status: Never used Tobacco e-Cigarette/Vaping Use: Never Used Second Hand Smoke Exposure: Yes service: No Current occupational status: employed and unemployed 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 How often do you have a drink containing alcohol?: Never 2. How many drinks containing alcohol do you have on a typical day when you are drinking?: 1 or 2 3. How often do you have six or more drinks on one occasion?: Never Total Score: 0 Score Reviewed/Action Taken: Yes EUGENIA-7 AMB Questionnaire EUGENIA-7 Date EUGENIA - 7 assessed: 07/02/23 Source: Developed by Drs. Tejas Almodovar, Marian Her, Tommy Valentine and colleagues, with an educational momo from [employer]. Review of Systems Const Denies chills, Denies headache(s) and Denies weight loss ENT Denies headache(s) Card Denies chest pain, Denies syncope, Denies irregular heart rhythm and Denies dyspnea Resp Denies chest congestion, Denies cough and Denies dyspnea GI Denies abdominal pain, Denies change in stool character, Denies nausea and Denies vomiting Musc Denies deformity and Denies joint swelling Neuro Denies syncope and Denies headache(s) Physical exam (Primary Care) Vital Signs: Last Vital Signs Pulse 69 07/02/23 09:32 BP 168/90 H 07/02/23 09:32 Pulse Ox 100 07/02/23 09:32 Oxygen Delivery Method Room Air 07/02/23 09:32 BMI result Body Mass Index 29.2 Tobacco/Smoking Status: Tobacco use Status Tobacco use date assessed 07/02/23 07/02/23 09:37 Patient Tobacco Use Status Never used Tobacco 07/02/23 09:37 e-Cigarette/Vaping Use Never Used 07/02/23 09:37 Thrive Assessment: Date of Thrive Assessment Date Thrive assessed 07/02/23 07/02/23 09:37 Const General: cooperative, comfortable, no acute distress and alert Neck Neck: Yes no lymphadenopathy Thyroid: Thyroid normal Resp Effort & Inspection: normal respiratory effort Auscultation: clear to auscultation bilaterally Percussion: percussion normal Cardio Jugular venous distension: no JVD Palpation: normal PMI Rate: regular rate Rhythm: regular rhythm Heart sounds: S1 normal heart sound present and S2 normal heart sound present GI Inspection: Yes normal to inspection Palpation (GI): No hepatosplenomegaly present Skin General skin exam: no rashes or lesions noted Extrem General: Yes no clubbing, cyanosis or edema Results AMB Hemoglobin A1c AMB Hemoglobin A1c 12.7 % Last Edit by LUCIANO Cook on 07/02/23 09:40 Results Reviewed Results Reviewed: Laboratory Last Values Hgb A1c (Clinic) 12.7 % (4.0-6.0) H 07/02/23 08:43 Assessment and Plan Assessment & Plan (1) Essential hypertension: Code(s): I10 - Essential (primary) hypertension Plan: ref neph (2) Hyperlipidemia LDL goal <100: Code(s): E78.5 - Hyperlipidemia, unspecified Plan: same rx (3) Type 2 diabetes mellitus without complications: Code(s): E11.9 - Type 2 diabetes mellitus without complications Qualifiers: 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 insulin use: without fpc use Qualified Code(s): E11.9 - Type 2 diabetes mellitus without complications Plan: increase metformin Orders: Orders AMB Hemoglobin A1c Today E11.9 - Type 2 diabetes mellitus without complications Referrals Nephrology Referral I10 - Essential (primary) hypertension Medications: Changed From metformin take with dinner 500 mg PO DAILY 30 tabs 6RF E11.9 - Type 2 diabetes mellitus without complications To metformin take with dinner 500 mg PO BID 60 tabs 6RF E11.9 - Type 2 diabetes mellitus without complications Refilled flash glucose sensor ([employer] Jessica 2 Sensor kit) As directed every 2 weeks 2 ea 11RF Coding Level of Care Code Est Pt Level 4 (81165) Diagnoses Essential hypertension I10 Hyperlipidemia LDL goal <100 E78.5 Type 2 diabetes mellitus without complication, without long-term current use of insulin E11.9 Diabetes mellitus fpc insulin use: without equipment operator intermodal yard use
== END 2023-07-02 09:58 | disposition home or self-care (01) ==
PROVIDERS: PCP Internal Medicine; Visit Provider Internal Medicine
DX: I10 Essential (primary) hypertension (principal); E78.5 Hyperlipidemia, unspecified; E11.9 Type 2 diabetes mellitus without complications
CPT/HCPCS: 83036; 99214

== ENCOUNTER 2023-09-16 08:54 | Outpatient (AMB) | payer OTHER, SELFPAY ==
[2023-09-16 08:55] VITALS: BP 146/98; PULSE 105; O2SAT 97; BMI 27.7
--- NOTE | 2023-09-16 08:55 | MHC.PC.OV ---
Vital Signs 09/16/23 08:55 Height 5 ft 8 in Weight 182 lb 0.4 oz BMI 27.7 BP 146/98 H Blood Pressure Location Lt brachial Position Sitting Pulse 105 H Pulse Source Pulse Oximeter Pulse Oximetry (%) 97 Oxygen Delivery Method Room Air Intake Visit Reasons: weight loss, low BP Steam Conditioner Operator Required: No Allergies No Known Allergies Allergy (Verified 07/02/23 09:35) Medication List - Last Reconciled 09/16/23 by Lamont Latham MD acarbose 25 mg PO TID albuterol sulfate 90 mcg/actuation 2 puffs PO Q4H PRN atorvastatin 40 mg PO BEDTIME benzonatate 100 mg PO TID PRN blood sugar diagnostic As directed flash glucose scanning reader As directed flash glucose sensor ([employer] Jessica 2 Sensor kit) As directed every 2 weeks fluoxetine 20 mg PO DAILY hydrochlorothiazide 25 mg PO DAILY metformin 500 mg PO BID sertraline 50 mg PO DAILY valsartan 80 mg PO DAILY Tobacco use date assessed: 09/16/23 Dental Screening Dental Screen Date: 07/02/23 HPI weight loss, low BP HPI Details mid back pain and weight loss for a few months; some dyspepsia PFSH Medical History (Updated 07/02/23 @ 11:27 by Lamont Latham MD) Depression Hypertriglyceridemia Asthma Essential hypertension Hyperlipidemia LDL goal <100 Obesity (BMI 30-39.9) Type 2 diabetes mellitus without complications Surgical History History of removal of skin mole Family History Father CHF (congestive heart failure) Afib Myocardial infarction CVD (cardiovascular disease) Discoid lupus Mother CAD (coronary artery disease) Social History Household Members: Spouse and Children Housing: House Alcohol intake: never Patient Tobacco Use Status: Never used Tobacco e-Cigarette/Vaping Use: Never Used Second Hand Smoke Exposure: Yes service: No Current occupational status: employed and unemployed 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 How often do you have a drink containing alcohol?: Never 2. How many drinks containing alcohol do you have on a typical day when you are drinking?: 1 or 2 3. How often do you have six or more drinks on one occasion?: Never Total Score: 0 Score Reviewed/Action Taken: Yes EUGENIA-7 AMB Questionnaire EUGENIA-7 Date EUGENIA - 7 assessed: 07/02/23 Source: Developed by Drs. Tejas Almodovar, Marian Her, Tommy Valentine and colleagues, with an educational momo from [employer]. Review of Systems Const Denies chills, Denies headache(s) and Denies weight loss ENT Denies headache(s) Card Denies chest pain, Denies syncope, Denies irregular heart rhythm and Denies dyspnea Resp Denies chest congestion, Denies cough and Denies dyspnea GI Denies change in stool character, Denies nausea and Denies vomiting Musc Denies deformity and Denies joint swelling Neuro Denies syncope and Denies headache(s) Physical exam (Primary Care) Vital Signs: Last Vital Signs Pulse 105 H 09/16/23 08:55 BP 146/98 H 09/16/23 08:55 Pulse Ox 97 09/16/23 08:55 Oxygen Delivery Method Room Air 09/16/23 08:55 BMI result Body Mass Index 27.7 Tobacco/Smoking Status: Tobacco use Status Tobacco use date assessed 09/16/23 09/16/23 09:03 Patient Tobacco Use Status Never used Tobacco 09/16/23 09:03 e-Cigarette/Vaping Use Never Used 09/16/23 09:03 Thrive Assessment: Date of Thrive Assessment Date Thrive assessed 07/02/23 09/16/23 09:03 Const General: cooperative, comfortable, no acute distress and alert Neck Neck: Yes no lymphadenopathy Thyroid: Thyroid normal Resp Effort & Inspection: normal respiratory effort Auscultation: clear to auscultation bilaterally Percussion: percussion normal Cardio Jugular venous distension: no JVD Palpation: normal PMI Rate: regular rate Rhythm: regular rhythm Heart sounds: S1 normal heart sound present and S2 normal heart sound present GI Inspection: Yes normal to inspection Palpation (GI): No hepatosplenomegaly present Skin General skin exam: no rashes or lesions noted Extrem General: Yes no clubbing, cyanosis or edema Results AMB Hemoglobin A1c AMB Hemoglobin A1c 14.0 % Last Edit by LUCIANO Cook on 09/16/23 09:10 14.0> Neena Campbell 09/16/23 09:10 Results Reviewed Results Reviewed: Laboratory Last Values Hgb A1c (Clinic) 14.0 % (4.0-6.0) H 09/16/23 09:03 Assessment and Plan Assessment & Plan (1) Epigastric pain: Code(s): R10.13 - Epigastric pain Plan: US Orders: Orders AMB Hemoglobin A1c Today E11.9 - Type 2 diabetes mellitus without complications US abdomen complete Today R10.9 - Unspecified abdominal pain Coding Level of Care Code Est Pt Level 3 (75190) Diagnoses Epigastric pain R10.13
== END 2023-09-16 09:25 | disposition home or self-care (01) ==
PROVIDERS: PCP Internal Medicine; Visit Provider Internal Medicine
DX: E11.9 Type 2 diabetes mellitus without complications (principal); R10.13 Epigastric pain
CPT/HCPCS: 83036; 99213

== ENCOUNTER 2023-09-23 10:20 | Outpatient (REF) | payer OTHER, SELFPAY ==
--- NOTE | ~2023-09-23 | US_ITS ---
EXAMINATION: US ABDOMEN COMPLETE CLINICAL INFORMATION: Epigastric and mid back pain. COMPARISON: CTA abdomen dated 08/10/2018. TECHNIQUE: Real-time imaging of the abdominal viscera. FINDINGS: PANCREAS: Limited. The visualized pancreatic head and body are normal in appearance. The remainder of the pancreas is obscured from visualization by the overlying bowel gas. ABDOMINAL AORTA: The proximal, mid, and distal segments are normal in caliber. INFERIOR VENA CAVA: Visualized portions are normal. LIVER: Normal. The liver is normal in size. The liver contour is normal. Parenchymal echogenicity is normal. No focal hepatic lesion. There is no intrahepatic biliary duct dilatation seen. GALLBLADDER: Normal. The gallbladder is physiologically distended without evidence of stones, sludge, polyps, wall thickening or pericholecystic fluid. COMMON BILE DUCT: Normal in caliber measuring 0.4 cm in diameter. RIGHT KIDNEY: Normal. No hydronephrosis. No renal calculi or focal parenchymal lesions. The kidney measures 10.0 cm in maximum dimension. LEFT KIDNEY: Normal. No hydronephrosis. No renal calculi or focal parenchymal lesions. The kidney measures 10.9 cm in maximum dimension. SPLEEN: Normal. The spleen measures 13.3 cm in maximum dimension. FREE FLUID: None. US/US abdomen complete IMPRESSION: There is mild splenomegaly. The examination is otherwise unremarkable.
== END 2023-09-23 10:21 | disposition home or self-care (01) ==
LOC: HO.US 10:20
PROVIDERS: PCP Internal Medicine; Visit Provider Internal Medicine
DX: R10.9 Unspecified abdominal pain (principal)
CPT/HCPCS: 76700

== ENCOUNTER 2023-09-23 11:46 | Outpatient (REF) | payer OTHER, SELFPAY ==
[2023-09-23 13:26] LABS: Appearance Urine Clear; Color Urine Yellow; Glucose Urine UA >=1000 mg/dL (Negative); Leukocyte Esterase Urine Negative (Negative); Nitrite Urine Negative (Negative); PH 5.5 (5.0-9.0); Specific Gravity - Urine 1.025 (1.005-1.025); UMIC TRIGGER UA YES; Urine Blood Negative (Negative); Urine Ketones Negative (Negative); Urine Protein Negative (Neg-Trace)
[2023-09-23 13:31] LABS: Anion Gap 14 (12-20); Bacteria Urine None Seen (None Seen); Blood Urea Nitrogen 23 mg/dL (9-16); Calcium 9.7 mg/dL (8.4-10.2); Carbon Dioxide 26 mmol/L (22-29); Chloride 101 mmol/L (96-108); Estimated Glomerular Filt Rate > 60; Hyaline Casts Urine 0-2 /LPF (0-2); Potassium 3.8 mmol/L (3.3-5.1); RBC Urine 0-2 /HPF (0-2); Sodium 137 mmol/L (135-145); Squamous Epithelial Cell Urine 0-2 /HPF (0-2); WBC Urine 0-5 /HPF (0-5)
[2023-09-23 14:40] LABS: Creatinine Urine 108.63 mg/dL; Microalbum/Creatinine Ratio Ur 9.2 ug/mg cr (<30); Total Protein Urine Random < 7 mg/dL (<12)
== END 2023-09-23 11:47 | disposition home or self-care (01) ==
LOC: HO.10HDL 11:46
PROVIDERS: Visit Provider Internal Medicine Nephrology
DX: I10 Essential (primary) hypertension (principal)
CPT/HCPCS: 36415; 80051; 81001; 82043; 82310; 82565; 82570; 84156; 84520

== ENCOUNTER 2023-11-15 09:37 | Outpatient (AMB) | payer OTHER, SELFPAY ==
[2023-11-15 09:41] VITALS: BP 120/82; PULSE 112; O2SAT 98; BMI 27.9
--- NOTE | 2023-11-15 09:41 | MHC.PC.OV ---
Vital Signs 11/15/23 09:41 Height 5 ft 8 in Weight 183 lb 8 oz BMI 27.9 BP 120/82 Blood Pressure Location Lt brachial Position Sitting Pulse 112 H Pulse Source Pulse Oximeter Pulse Oximetry (%) 98 Oxygen Delivery Method Room Air Intake Visit Reasons: 2 Month F/U Dental Technician Instructor Required: No Behavioral Health Director: Not Required per policy Accompanied by: Self / Same As Patient Allergies No Known Allergies Allergy (Verified 11/15/23 09:41) Tobacco use date assessed: 09/16/23 Dental Screening Dental Screen Date: 07/02/23 HPI 2 Month F/U HPI Details HTN on Rx; doing well and compliant [facility] Medical History (Updated 07/02/23 @ 11:27 by Lamont Latham MD) Depression Hypertriglyceridemia Asthma Essential hypertension Hyperlipidemia LDL goal <100 Obesity (BMI 30-39.9) Type 2 diabetes mellitus without complications Surgical History History of removal of skin mole Family History Father CHF (congestive heart failure) Afib Myocardial infarction CVD (cardiovascular disease) Discoid lupus Mother CAD (coronary artery disease) Social History Household Members: Spouse and Children Housing: House Alcohol intake: never Patient Tobacco Use Status: Never used Tobacco e-Cigarette/Vaping Use: Never Used Second Hand Smoke Exposure: Yes service: No Current occupational status: employed and unemployed 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 1. Little interest or pleasure in doing things: not at all 2. Feeling down, depressed, or hopeless: not at all 3. Trouble falling or staying asleep, or sleeping too much: not at all 4. Feeling tired or having little energy: not at all 5. Poor appetite or overeating: not at all 6. Feeling bad about yourself - or that you are a failure or have let yourself or your family down: not at all 7. Trouble concentrating on things, such as reading the newspaper or watching television: not at all 8. Moving or speaking so slowly that other people could have noticed. Or the opposite - being so fidgety or restless that you have been moving around a lot more than usual: not at all 9. Thoughts that you would be better off or of hurting yourself in some way: not at all Total score: 0 Depression Screening Interpretation: Negative Depression Screening Done: Yes 34903 - PHQ-9 Billing: Yes Source: Developed by Drs. Tejas Almodovar, Tommy Linares and colleagues, with an educational momo from [employer]. Thrive Questionnaire Date Thrive assessed: 07/02/23 EUGENIA-7 AMB Questionnaire EUGENIA-7 Date EUGENIA - 7 assessed: 07/02/23 Source: Developed by Drs. Tejas Almodovar, Marian Her, Tommy Valentine and colleagues, with an educational momo from [employer]. Review of Systems Const Denies chills, Denies headache(s) and Denies weight loss ENT Denies headache(s) Card Denies chest pain, Denies syncope, Denies irregular heart rhythm and Denies dyspnea Resp Denies chest congestion, Denies cough and Denies dyspnea GI Denies abdominal pain, Denies change in stool character, Denies nausea and Denies vomiting Musc Denies deformity and Denies joint swelling Neuro Denies syncope and Denies headache(s) Physical exam (Primary Care) Vital Signs: Last Vital Signs Pulse 112 H 11/15/23 09:41 BP 120/82 11/15/23 09:41 Pulse Ox 98 11/15/23 09:41 Oxygen Delivery Method Room Air 11/15/23 09:41 BMI result Body Mass Index 27.9 Tobacco/Smoking Status: Tobacco use Status Tobacco use date assessed 09/16/23 11/15/23 09:42 Patient Tobacco Use Status Never used Tobacco 11/15/23 09:42 e-Cigarette/Vaping Use Never Used 11/15/23 09:42 PHQ-9: PHQ-9 Score PHQ-9: Total score 0 11/15/23 09:42 Depression Screening Interpretation: Negative Thrive Assessment: Date of Thrive Assessment Date Thrive assessed 07/02/23 11/15/23 09:42 Const General: cooperative, comfortable, no acute distress and alert Neck Neck: Yes no lymphadenopathy Thyroid: Thyroid normal Resp Effort & Inspection: normal respiratory effort Auscultation: clear to auscultation bilaterally Percussion: percussion normal Cardio Jugular venous distension: no JVD Palpation: normal PMI Rate: regular rate Rhythm: regular rhythm Heart sounds: S1 normal heart sound present and S2 normal heart sound present GI Inspection: Yes normal to inspection Palpation (GI): No hepatosplenomegaly present Skin General skin exam: no rashes or lesions noted Extrem General: Yes no clubbing, cyanosis or edema Assessment and Plan Assessment & Plan (1) Essential hypertension: Code(s): I10 - Essential (primary) hypertension Plan: stable; same rx Orders: Orders Comprehensive [place]. Panel Fast Today Z13.9 - Encounter for screening, unspecified Hemoglobin A1c Today R73.9 - Hyperglycemia, unspecified Coding Level of Care Code Est Pt Level 3 (50682) Diagnoses Essential hypertension I10
== END 2023-11-15 09:58 | disposition home or self-care (01) ==
PROVIDERS: PCP Internal Medicine; Visit Provider Internal Medicine
DX: I10 Essential (primary) hypertension (principal)
CPT/HCPCS: 99213

== ENCOUNTER 2024-02-04 12:47 | Outpatient (AMB) | payer OTHER, SELFPAY ==
--- NOTE | 2024-02-04 12:50 | A.OFFVIS_ITS ---
Vital Signs 02/04/24 12:53 02/04/24 13:49 Height 5 ft 8 in Weight 182 lb 1.629 oz BMI 27.7 BP 188/68 H 162/84 H Blood Pressure Location Lt brachial Rt brachial Position Sitting Sitting Pulse 101 H Pulse Source Pulse Oximeter Intake Visit Reasons: DM Intake Note: New patient present today for Diabetes Mellitus Management. Last Diabetic Eye exam: 09/17/2023 Last Podiatry Visit: Doesn't have one Random Glucose: 379 mg/dl HgA1C: >14% Development Vice President Required: No Accompanied by: Self / Same As Patient Allergies No Known Allergies Allergy (Verified 02/04/24 12:56) HPI Comments Details: Patient is a 53 year old male with DM type 2 diagnosed July 2019 who presents for management of diabetes. He was last seen in the endocrinology department in 2021. Does not have functioning supplies to check BG. Hemoglobin a1c >14%. 14% August 2023. POC 379 no symptoms of hyperglycemia today. Current medication regimen: metformin 500 mg BID, Acarbose 25 mg TID (not taking this, causes nausea and doesn't feel well). Glipizide was discontinued due to hypoglycemia in the past. Compliance issues: see above No alcohol or tobacco use. Diet: Breakfast-doesn't eat breakfast usually, coffee (real creamer and splenda), once a week a protein in the morning Lunch- 3 pm sandwich with protein and cheese Dinner-shredded or grilled chicken, starch, vegetables Snacks/desserts: no soda or juice, drinks mostly water, cookies, ice cream Hypoglycemia symptoms: none Hyperglycemia symptoms: none Eye exam: UTD Dr. Rivera Microvascular complications: neuropathy Macrovascular complications: none Hypertension: treated with Valsartan 80 mg, HCTZ 25 mg. BP elevated 188/68 initially. Improved when rechecked. Patient very anxious at appointment. He is followed by nephrology for HTN. BP 120/October. Hyperlipidemia: treated with Atorvastatin 40 mg. ROS: Constitutional: No unexplained weight loss (+intentional weight loss), fever, chills, fatigue or night sweats. Eyes: No vision changes, blurry vision, double vision Respiratory: No shortness of breath Cardiovascular: No chest pain Gastrointestinal: No anorexia, nausea, vomiting or diarrhea. No abdominal pain Neurologic: No headache, dizziness, syncope Endocrine: No cold or heat intolerance. No polyuria or polydipsia. Physical exam: Constitutional: Alert, in no distress. Head: Normocephalic. Eyes: Pupils are equal, round and reactive to light. Extraocular muscles intact. Neck: Supple, Full range of motion. No lymphadenopathy. No palpable thyroid masses. Respiratory: Clear to auscultation. Cardiovascular: S1 S2 regular. No murmurs. Right foot: Warm and well perfused. No clubbing, cyanosis or edema. DP pulse 3+. Decreased vibratory sensation. Intact sensation to monofilament. Left foot: Warm and well perfused. No clubbing, cyanosis or edema. DP pulse 3+. Decreased vibratory sensation. Intact sensation to monofilament. [facility] Medical History (Updated 02/04/24 @ 14:02 by EMIL Stevens) Type II diabetes mellitus with neurological manifestations Depression Hypertriglyceridemia Asthma Essential hypertension Hyperlipidemia LDL goal <100 Obesity (BMI 30-39.9) Type 2 diabetes mellitus without complications Surgical History History of removal of skin mole Family History Father CHF (congestive heart failure) Afib Myocardial infarction CVD (cardiovascular disease) Discoid lupus Mother CAD (coronary artery disease) Social History Household Members: Spouse and Children Housing: House Alcohol intake: never Patient Tobacco Use Status: Never used Tobacco e-Cigarette/Vaping Use: Never Used Second Hand Smoke Exposure: Yes service: No Current occupational status: employed and unemployed 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 Cognitive needs: No Hearing needs: No Vision needs: No Physical Exam Vital Signs: Last Vital Signs Pulse 101 H 02/04/24 12:53 BP 188/68 H 02/04/24 12:53 BMI result Body Mass Index 27.7 Results AMB Hemoglobin A1c AMB Hemoglobin A1c > 14 % Last Edit by LUCIANO Mendoza on 02/04/24 13:17 Results Reviewed Results Reviewed: Laboratory Last Values Glucose (Clinic) 379 mg/dL (60-115) H* 02/04/24 12:59 Laboratory Tests 11/10/19 01/06/22 07/02/23 11:50 14:16 08:43 Creatinine Estimated GFR Hgb A1c (Clinic) 6.2 H 12.7 H Urine Creatinine Urine Microalbumin Microalb/Creat Ratio Islet Cell Ab Screen NEGATIVE Anti-IA2 Antibody <5.4 EUGENIA Antibody <5 09/16/23 09/23/23 09:03 11:52 Creatinine 1.16 Estimated GFR > 60 Hgb A1c (Clinic) 14.0 H Urine Creatinine 108.63 Urine Microalbumin 10.0 Microalb/Creat Ratio 9.2 Islet Cell Ab Screen Anti-IA2 Antibody EUGENIA Antibody Assessment & Plan Assessment & Plan (1) Type II diabetes mellitus with neurological manifestations: Code(s): E11.49 - Type 2 diabetes mellitus with other diabetic neurological complication Category: Medical (2) Essential hypertension: Code(s): I10 - Essential (primary) hypertension Category: Medical Plan In summary this is a 53 year old male with poorly controlled Type II DM here for diabetic management with hyperglycemia. Discussed pathophysiology of Type II Diabetes Mellitus with the patient in detail.? 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 Referred to malt house loader. Patient not taking Acarbose due to SEs. Remain off medication. Switch Metformin to ER and increase to 1000 mg BID. Start Lantus 10 units at bedtime. Submitted Rx for Ozempic 0.25 mg. The patient denies contraindications to GLP-1 receptor agonist. We reviewed the FDA preliminary evaluation that has not found evidence that these medications cause suicidal thoughts or actions, but the investigation is ongoing. If the patient develops these symptoms they will stop taking the medication immediately and contact the office. We reviewed more common side effects such as bloating, constipation, nausea and vomiting. We reviewed the administration and dosing schedule. Sent jessica 3 and freestyle lite monitor. May need to consider prandial insulin, but we will have a short term follow up and see how he is doing with these medication changes first. He has glucose tablets at home. Reviewed treatment of hypoglycemia and given written instructions. Reviewed treatment of hyperglycemia and when to go to ER for high BG. Patient we recheck BP at home and bring readings to next visit or contact his it applications developer if they continue to be elevated. Follow up in 2 weeks for diabetes. Orders: Orders AMB Hemoglobin A1c Today E11.9 - Type 2 diabetes mellitus without complications, Z13.9 - Encounter for screening, unspecified Referrals Electronic Sensing Equipment Assembler Nutrition Referral E11.9 - Type 2 diabetes mellitus without complications Medications: New insulin glargine (Lantus Solostar U-100 Insulin) 10 units (0.1 mL) subcut QPM 15 mL 5RF blood-glucose sensor (FreeStyle Jessica 3 Sensor device) apply new sensor every 14 days as directed 2 ea 11RF blood-glucose meter,continuous (FreeStyle Jessica 3 [place]) as directed 1 ea 0RF lancets (FreeStyle Lancets) Use as directed to monitor glucose up to 5 times daily 200 ea 5RF metformin ER 1,000 mg (2 x 500 mg) PO BID 90 days 360 tabs 1RF semaglutide (Ozempic) for 4 weeks 0.25 mg (0.368 mL) subcut QWEEK 3 mL 0RF pen needle, diabetic (BD Lyudmila 2nd Gen Pen Needle) As directed 200 ea 5RF blood sugar diagnostic (FreeStyle Lite Strips) As directed to check glucose up to 5 times daily 200 ea 5RF blood sugar diagnostic (FreeStyle Lite Strips) As directed to check glucose up to 5 times daily 200 ea 5RF Discontinued acarbose Discontinued Reason: Doctor's Order 25 mg PO TID 90 tabs 6RF E11.9 - Type 2 diabetes mellitus without complications Patient Instructions: Start Lantus 10 units at bedtime. Start new prescription for Metformin ER 500 mg 2 tablets twice daily. I submitted Ozempic 0.25 mg once weekly - this will require us to do a prior authorization and may not be available immediately at the pharmacy. I sent the freestle jessica 3 and lite meter. If you experience low blood sugar, treat this by eating a chewable fruit candy like skittles or jelly beans (about 8 pieces), 4 ounces (1/2 cup) of fruit juice (not diet), 1 tablespoon of honey or 4 glucose tablets. If your blood sugar is under 50, take double the amount of one of the above. Recheck your blood sugar in 15 minutes. Coding Level of Care Code Est Pt Level 5 (05912) Complex EM visit Add On G2211 Diagnoses Type II diabetes mellitus with neurological manifestations E11.49 Essential hypertension I10 Time Spent (min) 60 Comment reviewing chart, direct patient care, completing documentation
[2024-02-04 12:53] VITALS: BP 188/68; PULSE 101; BMI 27.7
[2024-02-04 13:05] LABS: Glucose, Whole Blood 379 mg/dL (60-115)
[2024-02-04 13:49] VITALS: BP 162/84
== END 2024-02-04 13:55 | disposition home or self-care (01) ==
PROVIDERS: PCP Internal Medicine; Visit Provider Physician Assistant Medical
DX: E11.49 Type 2 diabetes mellitus with other diabetic neurological complication (principal); I10 Essential (primary) hypertension
CPT/HCPCS: 99215; 99417; G2211

== ENCOUNTER → 2024-02-04 12:47 | Outpatient (BNVA) | payer OTHER, SELFPAY | PROVIDERS: PCP Internal Medicine; Visit Provider Physician Assistant Medical | DX: E11.49 Type 2 diabetes mellitus with other diabetic neurological complication (principal); I10 Essential (primary) hypertension | CPT/HCPCS: 82947; 83036; 99212 ==

== ENCOUNTER 2024-02-18 10:49 | Outpatient (AMB) | payer OTHER, SELFPAY ==
[2024-02-18 10:51] VITALS: PULSE 101; BMI 27.4
--- NOTE | 2024-02-18 10:51 | A.OFFVIS_ITS ---
Vital Signs 02/18/24 10:51 Height 5 ft 8 in Weight 180 lb 1.883 oz BMI 27.4 BMI Reason not done Patient refused/unable Pulse 101 H Pulse Source Pulse Oximeter Intake Visit Reasons: diabetes Intake Note: Patient present today to follow up on Type 2 Diabetes Mellitus. Last Diabetic Eye exam: 2022 Last Podiatry Visit: Doesn't have one Random Glucose: 551 mg/dl @ 10:57 am 505 mg/dl @ 11:52 am 471 mgldl @ 12:23 pm HgA1C: >14.0% 02/04/24 Legal Arbitrator Required: No Accompanied by: Self / Same As Patient Allergies No Known Allergies Allergy (Verified 02/18/24 10:55) HPI Comments Details: Patient is a 53 year old male with DM type 2 diagnosed July 2019 who presents for management of diabetes. He was last seen by me on 02/04/2024. He picked up lancets and test strips from pharmacy. Did not receive glucometer. He picked up Lantus and the increased dose of metformin, but he did not start taking them yet. He is only taking metformin 500 mg twice a day. Hemoglobin a1c >14%. 14% August 2023. POC 551 -denies symptoms of hyperglycemia today. Ketone urine dipstick with small ketones. Acarbose caused nausea and didn't feel well. Glipizide was discontinued due to hypoglycemia in the past. Compliance issues: see above No alcohol or tobacco use. Hypoglycemia symptoms: none Hyperglycemia symptoms: none Eye exam: UTD Dr. Rivera Microvascular complications: neuropathy Macrovascular complications: none Hypertension: treated with Valsartan 80 mg, HCTZ 25 mg. Patient adamantly refused to have blood pressure checked today. Hyperlipidemia: treated with Atorvastatin 40 mg. ROS: Constitutional: No unexplained weight loss (+intentional weight loss), fever, chills, fatigue or night sweats. Eyes: No vision changes, blurry vision, double vision Respiratory: No shortness of breath Cardiovascular: No chest pain or leg swelling. Gastrointestinal: No anorexia, nausea, vomiting or diarrhea. No abdominal pain Neurologic: No headache, dizziness, syncope Endocrine: No cold or heat intolerance. No polyuria or polydipsia. Physical exam: Constitutional: Alert, in no distress. Head: Normocephalic. Eyes: Pupils are equal, round and reactive to light. Extraocular muscles intact. Neck: Supple, Full range of motion. No lymphadenopathy. Respiratory: Clear to auscultation. Cardiovascular: S1 S2 regular. No murmurs. Right foot: Warm and well perfused. No clubbing, cyanosis or edema. Left foot: Warm and well perfused. No clubbing, cyanosis or edema. [facility] Medical History (Updated 02/18/24 @ 11:50 by EMIL Stevens) Type 2 diabetes mellitus with hyperglycemia Type II diabetes mellitus with neurological manifestations Depression Hypertriglyceridemia Asthma Essential hypertension Hyperlipidemia LDL goal <100 Obesity (BMI 30-39.9) Type 2 diabetes mellitus without complications Surgical History History of removal of skin mole Family History Father CHF (congestive heart failure) Afib Myocardial infarction CVD (cardiovascular disease) Discoid lupus Mother CAD (coronary artery disease) Social History Household Members: Spouse and Children Housing: House Alcohol intake: never Patient Tobacco Use Status: Never used Tobacco e-Cigarette/Vaping Use: Never Used Second Hand Smoke Exposure: Yes service: No Current occupational status: employed and unemployed 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 Purification Operator Helper 10 unit subcut right upper extremity 0.1 mL [id number] 05/11/25 8901-3593-59 [employer] Comments: Verbal order given for 10 units of insulin lispro from Cesia STEIN. Pt declined ketone testing. Pt agreeable to 10 units after discussion of risks of having elevated blood sugar. Visually confirmed dosage with Cesia Shirley, prior to injection. Patient tolerated injection well. Will recheck per protocol, advised Corinne Ayala MA insulin was given at 11:20am. Results UR Ketone Dip UR Ketone Dip 15 Last Edit by LUCIANO Mendoza on 02/18/24 12:11 Results Reviewed Results Reviewed: Laboratory Last Values Glucose (Clinic) 504 mg/dL (60-115) H* 02/18/24 11:51 Ur Ketones (Stick) 15 02/18/24 12:10 Assessment & Plan Assessment & Plan (1) Type II diabetes mellitus with neurological manifestations: Code(s): E11.49 - Type 2 diabetes mellitus with other diabetic neurological complication Category: Medical Plan In summary this is a 53 year old male with poorly controlled Type II DM here for diabetic management with hyperglycemia. Discussed pathophysiology of Type II Diabetes Mellitus with the patient in detail.? 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 Initially the patient refused ketone urine dipstick and administation of Humalog because he did not wish to be monitored in the office and rechecked. I spoke to Dr. Ojeda who also spoke with the patient. He consented to administation and was given 10 units of Humalog and multiple glasses of water. Small ketones on dipstick. Repeat POC after 25 minutes 505. Patient continued to hydrate. 3rd POC 471 after an hour. Patient continued to feel well during his visit and wants to leave. DexcomG7 reader given and sensor placed on patient today. Warm up period completed in office so he can continue to monitor BG today. I confirmed with the patient's pharmacy he picked up Lantus and increased dose of Metformin. He will start these medications. They didn't receive Rx for glucometer. Sent this in again today, and pharmacist confirmed he can pick this up. Pharmacist states freestyle Jessica 3 back ordered. Submitted prescription for Dexcom G7 sensors. Patient refuses Rx for short acting insulin against my medical advice. We discussed uncontrolled diabetes and hyperglycemia and potential progression of hypoglycemia to DKA, coma and . Negative Islet cell and EUGENIA antibodies in the past. Check C-peptide level along with pancreatic enzymes and creatinine level. Parish PA pending. Treatment of hypo/hyperglycemia reviewed in detail with the patient. Warning signs warranting ER evaluation reviewed. Follow up in 2 weeks for diabetes with hyperglycemia. Orders: Orders AMB Insulin Lispro Injection Practice Supplied Today E11.49 - Type 2 diabetes mellitus with other diabetic neurological complication AMB Ketone Urine Dipstick Today E11.49 - Type 2 diabetes mellitus with other diabetic neurological complication, Z13.9 - Encounter for screening, unspecified Lipase Today E11.65 - Type 2 diabetes mellitus with hyperglycemia Amylase Today E11.65 - Type 2 diabetes mellitus with hyperglycemia C Peptide Today E11.65 - Type 2 diabetes mellitus with hyperglycemia Creatinine Today E11.65 - Type 2 diabetes mellitus with hyperglycemia Medications: New blood-glucose sensor (Dexcom G7 Sensor device) apply new sensor every 10 days as directed 3 ea 11RF blood-glucose meter (FreeStyle Lite Meter kit) Use as directed to check blood glucose up to 5 times daily 1 ea 0RF E11.9 - Type 2 diabetes mellitus without complications Discontinued flash glucose sensor (FreeStyle Jessica 2 Sensor kit) Discontinued Reason: Doctor's Order As directed every 2 weeks 2 ea 11RF metformin take with dinner Discontinued Reason: Doctor's Order 500 mg PO BID 60 tabs 6RF E11.9 - Type 2 diabetes mellitus without complications blood-glucose sensor (FreeStyle Jessica 3 Sensor device) Discontinued Reason: Doctor's Order apply new sensor every 14 days as directed 2 ea 11RF blood-glucose meter,continuous (FreeStyle Jessica 3 [place]) Discontinued Reason: Doctor's Order as directed 1 ea 0RF blood sugar diagnostic (FreeStyle Lite Strips) Discontinued Reason: Doctor's Order As directed to check glucose up to 5 times daily 200 ea 5RF Patient Instructions: Start Lantus 10 units nightly. Please car pick up driver a pen needles from the pharmacy today. Please car pick up driver glucometer from the pharmacy today. Start new prescription for metformin extended release 500 mg 2 tablets twice daily. We will process the prior authorization for Ozempic. We will process the prior authorization for the Dexcom G7 sensors. Coding Level of Care Code Est Pt Level 5 (62756) Complex EM visit Add On G2211 Diagnoses Type II diabetes mellitus with neurological manifestations E11.49 Time Spent (min) 70 Comment Direct patient care and completing documentation
[2024-02-18 11:02] LABS: Glucose, Whole Blood 551 mg/dL (60-115)
[2024-02-18 11:55] LABS: Glucose, Whole Blood 504 mg/dL (60-115)
[2024-02-18 12:40] LABS: Glucose, Whole Blood 471 mg/dL (60-115)
== END 2024-02-18 12:32 | disposition home or self-care (01) ==
PROVIDERS: PCP Internal Medicine; Visit Provider Physician Assistant Medical
DX: Z13.9 Encounter for screening, unspecified (principal); E11.49 Type 2 diabetes mellitus with other diabetic neurological complication

== ENCOUNTER → 2024-02-18 10:49 | Outpatient (BNVA) | payer OTHER, SELFPAY | PROVIDERS: PCP Internal Medicine; Visit Provider Physician Assistant Medical | DX: E11.49 Type 2 diabetes mellitus with other diabetic neurological complication (principal); E11.65 Type 2 diabetes mellitus with hyperglycemia | CPT/HCPCS: 81002; 82947; 96372; 99212; J1815 ==

== ENCOUNTER 2024-02-28 11:16 | Outpatient (AMB) | payer OTHER, SELFPAY ==
--- NOTE | 2024-02-28 11:18 | A.OFFVIS_ITS ---
VS Expanded 02/28/24 11:21 02/28/24 11:39 Height 5 ft 8 in 5 ft 8 in Weight 182 lb 12.211 oz 183 lb BMI 27.8 27.8 Intake Visit Reasons: T2DM/LVM Allergies No Known Allergies Allergy (Verified 02/18/24 10:55) Nutrition Presentation Details: Pt presents for MNT for T2DM. Pt reports typically having one - two meals a day and working on reducing on sugars throughout the day. physical activity: daily life activities, food frequency fruits: 1/d ve-2/d dairy: various alternatives 3/d starches> 20 /d protein : varies between plant based and animal, 10-12 oz/day beverages: water, tea, coffee BS Monitoring Most Recent Diabetes Results: Microalb/Creat Ratio 9.2 ug/mg cr (<30) 09/23/23 Creatinine 1.16 mg/dL (0.5-1.4) 09/23/23 Blood Urea Nitrogen 23 mg/dL (9-16) H 09/23/23 Sodium 137 mmol/L (135-145) 09/23/23 Potassium 3.8 mmol/L (3.3-5.1) 09/23/23 Chloride 101 mmol/L (96-108) 09/23/23 Carbon Dioxide 26 mmol/L (22-29) 09/23/23 Calcium 9.7 mg/dL (8.4-10.2) 09/23/23 RLR-Mitjyvb-Hk.Jeor Equation Height: 5 ft 8 in Weight: 183 lb Resting Metabolic Rate: 1648.06 Calculated Activity Level: Mild Activity Calories Needed to Maintain Weight: 2266.08 Diagnosis Nutrition problem #1: food nutri know defi As related to (etiology) #1: diagnosis As evidenced by (sign/symptom) #1: knowledge deficit of diet [facility] Medical History (Updated 02/18/24 @ 11:50 by EMIL Stevens) Type 2 diabetes mellitus with hyperglycemia Type II diabetes mellitus with neurological manifestations Depression Hypertriglyceridemia Asthma Essential hypertension Hyperlipidemia LDL goal <100 Obesity (BMI 30-39.9) Type 2 diabetes mellitus without complications Surgical History History of removal of skin mole Family History Father CHF (congestive heart failure) Afib Myocardial infarction CVD (cardiovascular disease) Discoid lupus Mother CAD (coronary artery disease) Social History Household Members: Spouse and Children Housing: House Alcohol intake: never Patient Tobacco Use Status: Never used Tobacco e-Cigarette/Vaping Use: Never Used Second Hand Smoke Exposure: Yes service: No Current occupational status: employed and unemployed 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 Cognitive needs: No Hearing needs: No Vision needs: No Assessment & Plan Assessment & Plan (1) Type 2 diabetes mellitus with hyperglycemia: Code(s): E11.65 - Type 2 diabetes mellitus with hyperglycemia Category: Medical Plan: Wt: 83 Kg ( 02/21 ) Est kcal needs as per MSJ: 2300 (40% carb, 30% protein/fat) Est fluid needs as per 25-30 ml/d: 2500 Est prot per day as per 1 g/kg bw: 83 Recommend fiber intake : 8-10 g per day and gradually increase to 25-28 g per day for women and 35-38 g for men or as tolerated Recommend sodium intake per day : less than 2000 mg Educated patient on: ( R = reviewed V = verbalizes understanding N/R = needs review N/A = not applicable * Food sources of carbohydrate, adequate serving sizes and its role in various health conditions: R V N/R * Differences between complex carbohydrates a simple carbohydrates, role of fiber in diet: R V N/R * Lean protein sources of foods: R V NR * Differences between types of fats and role in diet (mono on saturated fat fatty acids, saturated fatty acids, trans fats): R V N/R * Food sources of sodium in salt and healthy modifications for heart health in kidney health: R V R/V * Vitamins and minerals: R V N/R * Healthy plate method concept: R * Physical activity: Benefits a precaution: R V N/R * Hypoglycemia protocol (rule of 15): R V N/R * Dietary prevention of Hyperglycemia: R Patient Instructions: Follow healthy plate method , including between 60-75 g complex carb per meal Coding Level of Care Code Nutr Indiv Intake (09666) Diagnoses Type 2 diabetes mellitus with hyperglycemia E11.65 Time Spent (min) 30
[2024-02-28 11:21] VITALS: BMI 27.8
[2024-02-29 20:44] VITALS: BMI 27.8
== END 2024-02-28 11:58 | disposition home or self-care (01) ==
PROVIDERS: PCP Internal Medicine; Visit Provider Dietitian, Registered
DX: E11.65 Type 2 diabetes mellitus with hyperglycemia (principal)

== ENCOUNTER → 2024-02-28 11:16 | Outpatient (BNVA) | payer OTHER, SELFPAY | PROVIDERS: PCP Internal Medicine; Visit Provider Dietitian, Registered | DX: E11.65 Type 2 diabetes mellitus with hyperglycemia (principal); E11.49 Type 2 diabetes mellitus with other diabetic neurological complication; Z71.3 Dietary counseling and surveillance | CPT/HCPCS: 97802 ==

== ENCOUNTER 2024-03-03 10:48 | Outpatient (AMB) | payer OTHER, SELFPAY ==
--- NOTE | 2024-03-03 10:49 | A.OFFVIS_ITS ---
Vital Signs 03/03/24 10:51 Height 5 ft 8 in Weight 180 lb 12.465 oz BMI 27.5 BP not taken reason Patient Refused Intake Visit Reasons: DM with hyperglycemia Intake Note: Patient present today to follow up on Type 2 Diabetes Mellitus. Last Diabetic Eye exam: 2022 Last Podiatry Visit: Doesn't have one HgA1C: >14.0% 02/04/24 Random Glucose: 116 mg/dL,Today Senior Planning Manager Required: No Accompanied by: Self / Same As Patient Allergies No Known Allergies Allergy (Verified 02/18/24 10:55) HPI Comments Details: Patient is a 53 year old male with DM type 2 diagnosed July 2019 who presents f or management of diabetes. He was last seen by me on 02/18/24. CGM download unavailable today. Reviewed information from his reader: 11% very high 34% high 55% target 0% hypoglycemia GMI 7.8% Average glucose 186 He was not able to get the G7 reader and sensors I sent to the pharmacy due to insurance. Patient says he does still see blood sugars spike after eating depending on what he eats. He has not had any readings more than 350, but he has seen some sugars in the 300s. No hypoglycemia. Current regimen: He started Lantus 10 units nightly and increased his dose to metformin ER 1000 mg twice daily. Ozempic 0.25 mg prescribed, but prior authorization is pending. Acarbose caused nausea and didn't feel well. Glipizide was discontinued due to hypoglycemia. Hemoglobin a1c >14% 02/04/2024. POC 116 today. Compliance issues: Significantly improved. Patient also met with the dietitian, and he says it was very helpful visit. No alcohol or tobacco use. Hypoglycemia symptoms: none Hyperglycemia symptoms: none Eye exam: UTD Dr. Rivera Microvascular complications: neuropathy Macrovascular complications: none Hypertension: treated with Valsartan 80 mg, HCTZ 25 mg. Patient again refuses to have blood pressure checked today because he did not sleep last night, and he knows it will be high. Denies chest pain, shortness of breath, headache, numbness, weakness, dizziness and blurry vision. Hyperlipidemia: treated with Atorvastatin 40 mg. Patient would like a referral to Podiatry for neuropathy and bilateral foot pains at the balls of his feet. ROS: Constitutional: No unexplained weight loss, fever, chills, fatigue or night sweats. Eyes: No vision changes, blurry vision, double vision Respiratory: No shortness of breath Cardiovascular: No chest pain or leg swelling. Gastrointestinal: No anorexia, nausea, vomiting or diarrhea. No abdominal pain Neurologic: No headache, dizziness, syncope Endocrine: No cold or heat intolerance. No polyuria or polydipsia. Physical exam: Constitutional: Alert, in no distress. Head: Normocephalic. Eyes: Pupils are equal, round and reactive to light. Extraocular muscles intact. Neck: Supple, Full range of motion. No lymphadenopathy. Respiratory: Clear to auscultation. Cardiovascular: S1 S2 regular. No murmurs. Right foot: Warm and well perfused. No clubbing, cyanosis or edema. Left foot: Warm and well perfused. No clubbing, cyanosis or edema. [facility] Medical History (Updated 02/18/24 @ 11:50 by EMIL Stevens) Type 2 diabetes mellitus with hyperglycemia Type II diabetes mellitus with neurological manifestations Depression Hypertriglyceridemia Asthma Essential hypertension Hyperlipidemia LDL goal <100 Obesity (BMI 30-39.9) Type 2 diabetes mellitus without complications Surgical History History of removal of skin mole Family History Father CHF (congestive heart failure) Afib Myocardial infarction CVD (cardiovascular disease) Discoid lupus Mother CAD (coronary artery disease) Social History Household Members: Spouse and Children Housing: House Alcohol intake: never Patient Tobacco Use Status: Never used Tobacco e-Cigarette/Vaping Use: Never Used Second Hand Smoke Exposure: Yes service: No Current occupational status: employed and unemployed 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 Patient has made progress with compliance and diet which is reflected on the CGM data I reviewed. Continue Lantus 10 units nightly and metformin extended release 1000 mg twice daily. I would like him to start Ozempic 0.25 mg once weekly once prior authorization is hopefully approved. I prescribed Humalog to be administered 3 times daily 15 minutes prior to meals per sliding scale. Written instructions given to patient. Resubmit prior authorization for Dexcom G7. In the past he has had reactive hypoglycemia and has not had symptoms to warn him of hypoglycemia. He will also be on basal-bolus insulin regimen now requiring continuous glucose monitoring. Treatment of hypo/hyperglycemia reviewed in detail with the patient. Warning signs warranting ER evaluation reviewed. Refer to podiatry. Follow up in 4 weeks for diabetes. Orders: Referrals Podiatry Referral M79.671 - Pain in right foot, M79.672 - Pain in left foot Medications: New insulin lispro (Humalog KwikPen (U-100) Insulin) Administer 15 minutes before meals three times daily per sliding scale. 1 sliding scale dose subcut USEASDIRECTD 15 mL 5RF Changed From blood sugar diagnostic (FreeStyle Lite Strips) As directed to check glucose up to 5 times daily 200 ea 5RF To blood sugar diagnostic (FreeStyle Lite Strips) As directed to check glucose 5 times daily 200 ea 5RF Refilled blood-glucose meter (FreeStyle Lite Meter kit) Use as directed to check blood glucose up to 5 times daily 1 ea 0RF E11.9 - Type 2 diabetes mellitus without complications Patient Instructions: Humalog insulin sliding scale: Blood sugar 150-199 mg/dL take 2 units Blood sugar 200-249 mg/dL take 4 units Blood sugar 250-299 mg/dL take 8 units Blood sugar 300-349 mg/dL take 10 units Blood sugar 350-399 mg/dL take 12 units Blood sugar >/=400 mg /dL take 15 units Administration timing of short-acting/mealtime insulin Insulin Lispro Humalog: Administer within 15 minutes before a meal. Coding Level of Care Code Est Pt Level 5 (37583) Complex EM visit Add On G2211 Diagnoses Type II diabetes mellitus with neurological manifestations E11.49 Time Spent (min) 47 Comment Reviewing chart, direct patient care, completing documentation
[2024-03-03 10:51] VITALS: BMI 27.5
[2024-03-03 10:58] LABS: Glucose, Whole Blood 116 mg/dL (60-115)
== END 2024-03-03 11:23 | disposition home or self-care (01) ==
PROVIDERS: PCP Internal Medicine; Visit Provider Physician Assistant Medical
DX: E11.49 Type 2 diabetes mellitus with other diabetic neurological complication (principal)

== ENCOUNTER → 2024-03-03 10:48 | Outpatient (BNVA) | payer OTHER, SELFPAY | PROVIDERS: PCP Internal Medicine; Visit Provider Physician Assistant Medical | DX: E11.49 Type 2 diabetes mellitus with other diabetic neurological complication (principal); E11.65 Type 2 diabetes mellitus with hyperglycemia; Z79.4 Long term (current) use of insulin; Z79.84 Long term (current) use of oral hypoglycemic drugs | CPT/HCPCS: 82947; 99212 ==

== ENCOUNTER 2025-02-12 11:07 | Outpatient (AMB) | payer OTHER, SELFPAY ==
[2025-02-12 11:16] VITALS: BP 220/100; PULSE 93; RESP 18; TEMP 36.2; O2SAT 97; BMI 30.9
--- NOTE | 2025-02-12 11:16 | MHC.PC.OV ---
Vital Signs 02/12/25 11:16 02/12/25 12:05 Height 5 ft 8 in Weight 203 lb 8 oz BMI 30.9 BP 220/100 H 190/104 H Blood Pressure Location Lt brachial Lt brachial Position Sitting Sitting Respiration 18 Pulse 93 Pulse Source Pulse Oximeter Temp 97.1 F Temp Source Temporal Artery Scan Pulse Oximetry (%) 97 Oxygen Delivery Method Room Air Intake Visit Reasons: MELISSA DR Latham Preparation Supervisor Canning Required: No Accompanied by: Self / Same As Patient Allergies No Known Allergies Allergy (Verified 02/12/25 11:34) Medication List - Last Reconciled 02/12/25 by BIA Blevins albuterol sulfate 90 mcg/actuation 2 puffs PO Q4H PRN blood sugar diagnostic As directed blood sugar diagnostic (FreeStyle Lite Strips) As directed to check glucose 5 times daily blood-glucose meter (FreeStyle Lite Meter kit) Use as directed to check blood glucose up to 5 times daily blood-glucose sensor (Semetric G7 Sensor device) apply new sensor every 10 days as directed doxazosin 2 mg PO DAILY hydrochlorothiazide 25 mg PO DAILY insulin glargine (Lantus Solostar U-100 Insulin) 10 units (0.1 mL) subcut QPM insulin lispro (Humalog KwikPen (U-100) Insulin) 1 sliding scale dose subcut USEASDIRECTD lancets (FreeStyle Lancets) Use as directed to monitor glucose up to 5 times daily metformin ER 1,000 mg (2 x 500 mg) PO BID 90 days pen needle, diabetic (BD Lyudmila 2nd Gen Pen Needle) As directed valsartan 80 mg PO DAILY Tobacco use date assessed: 02/12/25 Dental Screening Dental Screen Date: 02/12/25 Did you have a dental visit in the last 12 months?: No Did you have a dental problem in the last 6 months where you did not have access to dental care?: No Was dental information given to patient?: Patient has dentist HPI MELISSA DR Latham HPI Details The patient is a 54-year-old male presenting with concerns regarding high blood pressure management and associated symptoms. The patient is a transfer from Dr. Latham, who retired about 6 months ago. The patient has a history of essential hypertension, which was diagnosed a long time ago. He has been on various antihypertensive medications, including hydrochlorothiazide, valsartan, and doxazosin, but has experienced side effects such as dizziness. His blood pressure has been difficult to control, with recent readings as high as 220/106 mmHg, necessitating adjustments in medication dosages. The patient as also taking his blood pressure medications during the nighttime to prevent side effects. Rechecked blood pressure was 190/104. He continues to be asymptomatic. The patient also reports experiencing anxiety, which he attributes to multiple stressors, including caring for his twin daughters with special needs. He describes panic attacks and difficulty sleeping due to anxiety, which exacerbates his hypertension. The had tried few different SSRI without any relief, and has self-discontinued. He has not seen a psychiatrist. The patient reports that he is working 60 hours a week, and he is wondering if he should cut down on his hours for the overall health benefit. The patient has a history of diabetes mellitus, which he suspects is poorly controlled due to elevated A1c levels. He reports difficulty in recognizing hypoglycemic episodes and has not been consistent with monitoring his blood glucose levels. However, his a1c was 6.7% in office. Reports that he has not seen endocrine in about year. He is looking for refills on the the needle tips. The patient has discontinued atorvastatin due to adverse effects and has not yet started an alternative lipid-lowering therapy. Reports that this medication was bothering him but he is not sure of the actual side effect at this time. He reports gastrointestinal bloating, which he describes as random and not associated with meals. This bloating is accompanied by constipation, which he attributes to his current medication regimen. Discuss Fodmap diet with the patient, increasing fluids and fiber in diet. [facility] Medical History Type 2 diabetes mellitus with hyperglycemia Type II diabetes mellitus with neurological manifestations Depression Hypertriglyceridemia Asthma Essential hypertension Hyperlipidemia LDL goal <100 Obesity (BMI 30-39.9) Type 2 diabetes mellitus without complications Surgical History History of removal of skin mole Family History Father CHF (congestive heart failure) Afib Myocardial infarction CVD (cardiovascular disease) Discoid lupus Mother CAD (coronary artery disease) Social History Household Members: Spouse and Children Housing: House Alcohol intake: never Patient Tobacco Use Status: Never used Tobacco e-Cigarette/Vaping Use: Never Used Second Hand Smoke Exposure: Yes service: No Current occupational status: employed and unemployed 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 1. Little interest or pleasure in doing things: not at all 2. Feeling down, depressed, or hopeless: several days 3. Trouble falling or staying asleep, or sleeping too much: nearly every day 4. Feeling tired or having little energy: several days 5. Poor appetite or overeating: several days 6. Feeling bad about yourself - or that you are a failure or have let yourself or your family down: not at all 7. Trouble concentrating on things, such as reading the newspaper or watching television: several days 8. Moving or speaking so slowly that other people could have noticed. Or the opposite - being so fidgety or restless that you have been moving around a lot more than usual: not at all 9. Thoughts that you would be better off or of hurting yourself in some way: not at all Total score: 7 Depression Screening Interpretation: Positive Depression Screening Done: Yes 05285 - PHQ-9 Billing: Yes Source: Developed by Drs. Tejas Almodovar, Marian Her, Tommy Valentine and colleagues, with an educational momo from [employer]. Thrive Questionnaire Date Thrive assessed: 02/12/25 I am a: Patient What is your living situation today?: I have a steady place to live Within the past 12 months, did the food you bought not last and you didn't have the money to get more?: Never true Within the past 12 months, did you worry whether your food would run out before you got money to buy more?: Never true Do you have trouble paying for medicines?: No Do you have trouble getting transportation to medical appointments?: No Do you have trouble paying your heating and electricity bill?: No Do you have trouble taking care of your child, family member or friend?: No Do you have trouble with day-to-day activities such as bathing, preparing meals, shopping, managing finances, etc.?: No Are you currently unemployed and looking for a job?: No Are you interested in more education?: Yes Please select the resources that you would like help with: Education Currently or been in a relationship where the following occur: No concerns reported THRIVE Score: 0 AUDIT C Alcohol Use Questionnaire (AUDIT-C) 1. How often do you have a drink containing alcohol?: Never Total Score: 0 EUGENIA-7 AMB Questionnaire EUGENIA-7 Date EUGENIA - 7 assessed: 02/12/25 Feeling nervous, anxious, or on edge: 2 = More than half the days Not being able to stop or control worryin = More than half the days Worrying too much about different things: 2 = More than half the days Trouble relaxin = More than half the days Being so restless that it is hard to sit still: 2 = More than half the days Becoming easily annoyed or irritable: 0 = Not at all Feeling afraid as if something awful might happen: 0 = Not at all Total EUGENIA-7 score (0-4 normal; 5-9 mild; 10-14 moderate; 15-21 severe): 10 Source: Developed by Drs. Tejas Almodovar, Marian Her, Tommy Valentine and colleagues, with an educational momo from [employer]. EUGENIA-7 Assessment Billing EUGENIA-7 Assessment Tool: EUGENIA-7 Assessment 05566 Review of Systems Const Denies headache(s) Eyes Denies loss of vision ENT Denies vertigo, Denies dizziness, Denies headache(s) and Denies sore throat Card Denies chest pain, Denies leg edema and Denies lightheadedness Resp Denies cough, Denies hemoptysis and Denies wheezing GI Denies abdominal pain, Denies melena, Denies constipation, Denies diarrhea and Denies vomiting Denies dysuria, Denies urinary frequency and Denies urinary urgency Musc Denies arthralgias, Denies joint swelling, Denies numbness and Denies tingling Neuro Denies Abnormal speech present, Denies behavioral changes, Denies vertigo, Denies dizziness, Denies headache(s), Denies loss of vision, Denies memory loss, Denies numbness and Denies tingling Psych Reports anxiety, Denies behavioral changes, Denies depression, Denies memory loss and Reports panic attacks Tej/Lymph Denies easy bleeding and Denies easy bruising Aller/Immun Denies wheezing Physical exam (Primary Care) Vital Signs: Last Vital Signs Temp 97.1 F 02/12/25 11:16 Pulse 93 02/12/25 11:16 Resp 18 02/12/25 11:16 BP 220/100 H 02/12/25 11:16 Pulse Ox 97 02/12/25 11:16 Oxygen Delivery Method Room Air 02/12/25 11:16 BMI result Body Mass Index 30.9 Tobacco/Smoking Status: Tobacco use Status Tobacco use date assessed 02/12/25 02/12/25 11:24 Patient Tobacco Use Status Never used Tobacco 02/12/25 11:24 e-Cigarette/Vaping Use Never Used 02/12/25 11:24 PHQ-9: PHQ-9 Score PHQ-9: Total score 7 02/12/25 11:52 Depression Screening Interpretation: Positive Thrive Assessment: Date of Thrive Assessment Date Thrive assessed 02/12/25 02/12/25 11:24 Currently or been in a relationship where the following occur: No concerns reported Const General: healthy appearing, no acute distress, alert and awake Nutritional Appearance: well nourished Orientation/consciousness: oriented to person, oriented to place and oriented to time HENMT Ears: TM's normal bilaterally General nose exam: Normal nasal mucous membranes and turbinates present Eyes Conjunctivae: conjunctivae normal Sclerae: sclerae normal Pupils: Equal, round and reactive pupils present Neck Neck: Yes no lymphadenopathy and Yes no JVD Thyroid: Thyroid normal Carotids: no bruits Resp Effort & Inspection: normal respiratory effort and not tachypneic Auscultation: no crackles, no rales, no rhonchi and no wheezes Cardio Rate: regular rate Rhythm: regular rhythm Heart sounds: no murmurs and normal S1 and S2 GI Palpation (GI): Soft to palpation, nontender, no hepatomegaly and no splenomegaly Auscultation: normal bowel sounds Skin General skin exam: no rashes or lesions noted and dry skin Neuro General: oriented to person, oriented to place and oriented to time Cranial nerves: Yes Equal, round and reactive pupils present Speech: No Abnormal speech present Gait exam (Neuro): Normal gait present Motor exam (neuro): no tremor noted Extrem Right upper extremity: full ROM Left upper extremity: full ROM Right lower extremity: full ROM; no edema Left lower extremity: full ROM; no edema Psych Mental Status: mental status grossly normal Speech and movement: Normal speech and movement present Affect: normal affect Attitude: cooperative Thought process: Normal thought process present Results AMB Hemoglobin A1c AMB Hemoglobin A1c 6.7 % Last Edit by Emilie Nix MA on 02/12/25 12:01 Coding Level of Care Code Est Pt Level 4 (05628) Diagnoses Essential hypertension I10 Type 2 diabetes mellitus without complication, without long-term current use of insulin E11.9 Diabetes mellitus alf insulin use: without thermometer production worker use Panic disorder F41.0 Obesity (BMI 30-39.9) E66.9 Abdominal bloating R14.0 Anxiety F41.9 Additional Codes PHQ-9 - 26476 - PHQ-9 Billing: Yes ([id number]) EUGENIA-7 Assessment Billing - EUGENIA-7 Assessment Tool: EUGENIA-7 Assessment 90915 ([id number]) Time Spent (min) 39 Assessment & Plan Assessment & Plan (1) Essential hypertension: Code(s): I10 - Essential (primary) hypertension Category: Medical Plan: Blood pressure in office 220/100. Rechecked blood pressure was 190/104. Patient reports that he is under severe life related stress. He denies using salt. Does not endorsed frequent use of coffee. The patient is currently on valsartan 80 mg daily, doxazosin 2 mg daily, hydrochlorothiazide 25 mg daily. We will increase valsartan to 160 mg daily and have the patient return in 1 week for blood pressure check. Patient denies chest pain or headaches. (2) Type 2 diabetes mellitus without complications: Code(s): E11.9 - Type 2 diabetes mellitus without complications Category: Medical Qualifiers: Diabetes mellitus thermometer production worker insulin use: without thermometer production worker use Qualified Code(s): E11.9 - Type 2 diabetes mellitus without complications Plan: A1c 6.7% in office goal is less than 7% Reinforced low sugar/carbohydrate diet and activity as tolerated Continue metformin ER a 1000 mg b.i.d., Humalog per sliding scale, and Lantus 10 units subQ q.p.m. We will repeat fasting glucose and A1c in 3 months (3) Panic disorder: Code(s): F41.0 - Panic disorder [episodic paroxysmal anxiety] Category: Medical Plan: Patient reports history of anxiety leading to panic attacks. He has been facing increase family/situational related anxiety. Patient has tried sertraline 50 mg and fluoxetine 20 mg prior. The patient has not been seen by a psychiatrist. Hydroxyzine 50 mg b.i.d. p.r.n. ordered. Urgent referral for Psychiatry placed. (4) Obesity (BMI 30-39.9): Code(s): E66.9 - Obesity, unspecified Category: Medical Plan: Encouraged to exercise for at least 30 minutes a day/5 days a week Healthy eating discussed. Encouraged to eat fruits/vegetables, protein-fish/baked chicken, and to avoid salty/fried foods, sweets, caffeine and carbohydrates. Encouraged to increase water intake 6-8 glasses a day (5) Abdominal bloating: Code(s): R14.0 - Abdominal distension (gaseous) Category: Medical Plan: Report random bloatedness that goes across his mid abdomen. Reports that it does not seem that it is associated with postprandial. Encouraged the patient to use the FODMAP diet to eliminate foods that might be triggering this. We will also add a tansglutaminase, lipase, and amylase to further evaluate. (6) Anxiety: Code(s): F41.9 - Anxiety disorder, unspecified Category: Medical Plan: Encouraged CBT Start hydroxyzine 50 mg b.i.d. p.r.n. Psychiatria referral placed Orders: Orders Lipid Panel Today E11.9 - Type 2 diabetes mellitus without complications, E78.1 - Pure hyperglyceridemia, E78.5 - Hyperlipidemia, unspecified, F41.0 - Panic disorder [episodic paroxysmal anxiety], I10 - Essential (primary) hypertension, Z00.00 - Encounter for general adult medical examination without abnormal findings UA CC w/rflx Micro + Cult Today E11.9 - Type 2 diabetes mellitus without complications, E78.1 - Pure hyperglyceridemia, E78.5 - Hyperlipidemia, unspecified, F41.0 - Panic disorder [episodic paroxysmal anxiety], I10 - Essential (primary) hypertension, Z00.00 - Encounter for general adult medical examination without abnormal findings Transglutaminase Ab IgG Today R14.0 - Abdominal distension (gaseous) Lipase Today R14.0 - Abdominal distension (gaseous) AMB Hemoglobin A1c Today Z13.9 - Encounter for screening, unspecified Complete Blood Count Auto Diff Today E11.9 - Type 2 diabetes mellitus without complications, E78.1 - Pure hyperglyceridemia, E78.5 - Hyperlipidemia, unspecified, F41.0 - Panic disorder [episodic paroxysmal anxiety], I10 - Essential (primary) hypertension, Z00.00 - Encounter for general adult medical examination without abnormal findings Comprehensive [place]. Panel Fast Today E11.9 - Type 2 diabetes mellitus without complications, E78.1 - Pure hyperglyceridemia, E78.5 - Hyperlipidemia, unspecified, F41.0 - Panic disorder [episodic paroxysmal anxiety], I10 - Essential (primary) hypertension, Z00.00 - Encounter for general adult medical examination without abnormal findings TSH reflex Free T4 Today E11.9 - Type 2 diabetes mellitus without complications, E78.1 - Pure hyperglyceridemia, E78.5 - Hyperlipidemia, unspecified, F41.0 - Panic disorder [episodic paroxysmal anxiety], I10 - Essential (primary) hypertension, Z00.00 - Encounter for general adult medical examination without abnormal findings Vitamin D 25-OH Total Today E11.9 - Type 2 diabetes mellitus without complications, E78.1 - Pure hyperglyceridemia, E78.5 - Hyperlipidemia, unspecified, F41.0 - Panic disorder [episodic paroxysmal anxiety], I10 - Essential (primary) hypertension, Z00.00 - Encounter for general adult medical examination without abnormal findings PSA,Total (Free>4and<10) Today Z00.00 - Encounter for general adult medical examination without abnormal findings Amylase Today R14.0 - Abdominal distension (gaseous) Referrals Psychiatry Referral F41.0 - Panic disorder [episodic paroxysmal anxiety], F41.9 - Anxiety disorder, unspecified Medications: New hydroxyzine HCl 50 mg PO BID PRN 60 tabs 2RF itching Changed From valsartan 160 mg PO DAILY To valsartan 160 mg PO DAILY 90 tabs 3RF 90 days From pen needle, diabetic (BD Lyudmila 2nd Gen Pen Needle) As directed 200 ea 5RF To pen needle, diabetic As directed 200 ea 5RF
[2025-02-12 12:05] VITALS: BP 190/104
--- OUTSIDE RECORDS SUMMARY | 2025-02-12 14:51 | XMS_ITS | Encounter Summary ---
Author Organization [facility] Address [address] [facility] [address] [place] [address] Phone Care Team Providers Care Tour Leader Name Role Phone Lamont Latham MD Primary Care Provider [phone] Reason for Visit * Reason Comments Med Refill Encounter Details Date Type Department Care Team ([facility] st Contact Info) Description 12/18/2020 Refill [facility] [address] [place] [address] Bobby Ordonez MD [address] [facility] [address] [place] [address] Social History Tobacco Use Types Packs/Day Years Used Date Smoking Tobacco: Never Alcohol Use Standard Drinks/Week Comments No 0 (1 standard drink = 0.6 oz pur e alcohol) Sex and Gender Information Value Date Recorded Sex Assigned at Not on file Legal Sex Male 4:53 PM EST Gender Identity Not on file Sexual Orientation Not on file documented as of this encounter Miscellaneous Notes * Telephone Encounter - Bobby Ordonez MD - 12/23/2020 12:16 AM EDT Needs f/u in 5-6 weeks with me 1. tell them I sent rx but no refils 2. They must see me or have a telehealth visit with me before I can renew it again 3. when u call them be sure to make the f/u appt at the same time u inform them th rx was sent by me documented in this encounter Plan of Treatment Not on file documented as of this encounter Visit Diagnoses Not on filedocumented in this encounter Care Teams Tour Leader Relationship Specialty Start Date End Date Lamont Latham MD [address] [place], [place] PCP - General Internal Medicine 08/24/23 documented as of this encounter
--- OUTSIDE RECORDS SUMMARY | 2025-02-12 14:51 | XMS_ITS | Patient Health Record ---
Author Organization [facility] Address [address] [place] [address] Care Team Providers Care Parent Educator Name Role Phone Yeison MOULTON, Lamont Primary Care Provider Jalen Blount Jr Unavailable Allergies No Known Allergies Reason For Referral No Information Medications Medication SIG (Take, Route, Frequency, Duration) Notes Start Date End Date Status Sertraline HCl 50 MG Oral for 60 Active amLODIPine Besylate 10 MG Oral for 30 Active metFORMIN HCl 500 MG Oral for 30 Active FLUoxetine HCl 20 MG Oral for 90 Active Atorvastatin Calcium 40 MG Oral for 30 Active hydroCHLOROthiazide 25 MG Oral for 90 Active Immunizations Vaccine Route Administration Date Status Comme nts Influenza Unknown 11/02/2022 Refused Social History Tobacco Use: Social History Observation Description Date Details (start date - stop date) Never Smoker NA - NA Tobacco Use/Smoking Question Answer Notes Patient is a nonsmoker Alcohol Screen Question Answer Notes Did you have a drink containing alcohol in the p ast year? No Points 0 Interpretation Negative Problems Problem Type SNOMED Code ICD Code Onset Dates Problem Status W/U Status Risk Notes Problem 603653301 Colon cancer screening (Z12.11) Active confirmed Problem Dysphagia (10292925) Dysphagia (R13.10) Active confirmed Problem 65503924 Dysphagia, unspecified type (R13.10) Active confirmed Plan Of Treatment Future Test Test Name Order Date UPPER GI ENDOSCOPY 11/02/2022 COLONOSCOPY 11/02/2022 Insurance Providers Payer Name Payer Address Payer Phone Subscriber Number Group Number Insured Name Patient Relationship to Insured Coverage Start Date Coverage End Date [facility] [address] [address] [place], [place] [id number] GENA TREVINO Self - patient is the insured Medical (General) History Medical History History ICD Code Diabetes mellitus type 2 Hypertension Depression Elevated cholesterol Surgical History Surgery Date(Month/Year) daniela removed 1987
--- OUTSIDE RECORDS SUMMARY | 2025-02-12 14:51 | XMS_ITS | Clinical Summary ---
Author Organization [facility] Address [address] [place] [phone] Phone Care Team Providers Care Black [employer] Coating Equipment Tender Name Role Phone Lamont Latham MD Primary Care Provider [phone] Allergies No known active allergies Medications valACYclovir (VALTREX) 1 g tablet Take 1 tablet by mouth 2 (two) times a day Active hydroCHLOROthia zide 12.5 MG tablet Take 25 mg by mouth 1 (one) time each day Active fenofibrate (TRIGLIDE) 160 MG tablet Take 1 tablet by mouth 1 (one) time each day Active atorvastatin (LIPITOR) 20 MG tablet Take 1 tablet by mouth 1 (one) time each day Active albuterol HFA (PROVENTIL HFA;VENTOLIN HFA) 108 (90 Base) MCG/ACT inhaler Active Blood Pressure Monitor kit 1 kit 1 (one) time each day 08/08/2018 Active metFORMIN (GLUCOPHAGE) 1000 MG tablet Take 1,000 mg by mouth in the morning and 1,000 mg in the evening. Take with meals. 02/09/2021 Active Continuous Blood Gluc Sensor (FreeStyle Jessica 14 Day Sensor) [facility] USE DIRECTED EVERY 2 WEEKS 01/24/2021 Active valsartan (DIOVAN) 160 MG tablet Take 2 tablets (320 mg total) by mouth 1 (one) time each day 180 tablet 1 10/11/2023 Active doxazosin (CARDURA) 2 MG tablet TAKE 1 TABLET BY MOUTH EVERY NIGHT. 90 tablet 3 10/17/2024 Active valsartan (DIOVAN) 160 MG tablet Take 1 tablet (160 mg total) by mouth 1 (one) time each day 90 tablet 3 10/17/2024 Active Active Problems Problem Noted Date Diagnosed Date Dysphagia 01/03/2025 Essential hypertension 02/18/2021 Benign essential hypertension 02/12/2021 Family History Medical History Relation Comments Heart disease Father Heart disease Mother Relation Status Comments Father Mother Social History Tobacco Use Types Packs/Day Years Used Date Smoking Tobacco: Never Alcohol Use Standard Drinks/Week Comments No 0 (1 standard drink = 0.6 oz pur e alcohol) Sex and Gender Information Value Date Recorded Sex Assigned at Not on file Legal Sex Male 4:53 PM EST Gender Identity Not on file Sexual Orientation Not on file Last Filed Vital Signs Vital Sign Reading Time Taken Comments Blood Pressure 139/81 08/24/2023 2:33 PM EDT Pulse 120 08/24/2023 2:33 PM EDT Temperature - - Respiratory Rate - - Oxygen Saturation 98% 08/24/2023 2:33 PM EDT Inhaled Oxygen Concentration - - Weight 83.6 kg (184 lb 6.4 oz) 08/24/2023 2:33 P M EDT Height 172.7 cm (5' 8 ) 08/08/2018 12:00 PM EDT Body Mass Index 28.04 08/08/2018 12:00 PM EDT Plan of Treatment Health Maintenance Due Date Last Done Comments Hepatitis B Vaccine (1 of 3 - 19+ 3-dose series) 05/18 Pneumococcal Vaccine: 50+ Years (1 of 2 - PCV) 988 Colorectal Cancer Screening: Annual FOBT 2018 Colorectal Cancer Screening: Colonoscopy 2018 Colorectal Cancer Screening: Sigmoidoscopy 2018 Influenza Vaccine (#1) 2025 Insurance [facility] Medicaid [facility] Medicaid Care Teams Black [employer] Coating Equipment Tender Relationship Specialty Start Date End Date Lamont Latham MD [address] [place], [place] PCP - General Internal Medicine 08/24/23
== END 2025-02-12 12:37 | disposition home or self-care (01) ==
DX: I10 Essential (primary) hypertension (principal); E11.9 Type 2 diabetes mellitus without complications; E66.9 Obesity, unspecified; Z68.30 Body mass index [BMI] 30.0-30.9, adult; F41.0 Panic disorder [episodic paroxysmal anxiety]; R14.0 Abdominal distension (gaseous); F41.9 Anxiety disorder, unspecified

== ENCOUNTER → 2025-02-12 11:07 | Outpatient (BNVA) | payer OTHER, SELFPAY | DX: I10 Essential (primary) hypertension (principal); E11.9 Type 2 diabetes mellitus without complications; F41.9 Anxiety disorder, unspecified; R14.0 Abdominal distension (gaseous); F41.0 Panic disorder [episodic paroxysmal anxiety]; E66.9 Obesity, unspecified; Z68.30 Body mass index [BMI] 30.0-30.9, adult | CPT/HCPCS: 83036; 96127; 99212 ==

== ENCOUNTER 2025-02-21 11:24 | Outpatient (AMB) | payer OTHER, SELFPAY ==
[2025-02-21 11:26] VITALS: RESP 18; TEMP 36.2; BMI 30.9
--- NOTE | 2025-02-21 11:26 | A.OFFPC_ITS ---
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 Ibrahima notified. Pt informed me that he had not taken his am BP meds. PFSH Medical History Type 2 diabetes mellitus with hyperglycemia Type II diabetes mellitus with neurological manifestations Depression Hypertriglyceridemia Asthma Essential hypertension Hyperlipidemia LDL goal <100 Obesity (BMI 30-39.9) Type 2 diabetes mellitus without complications Surgical History History of removal of skin mole Family History Father CHF (congestive heart failure) Afib Myocardial infarction CVD (cardiovascular disease) Discoid lupus Mother CAD (coronary artery disease) Social History Household Members: Spouse and Children Housing: House Alcohol intake: never Patient Tobacco Use Status: Never used Tobacco e-Cigarette/Vaping Use: Never Used Second Hand Smoke Exposure: Yes service: No Current occupational status: employed and unemployed 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[employer] Cognitive needs: No Hearing needs: No Vision needs: No Questionnaire Thrive Questionnaire Date Thrive assessed: 02/12/25 EUGENIA-7 AMB Questionnaire EUGENIA-7 Date EUGENIA - 7 assessed: 02/12/25 Source: Developed by Drs. Tejas Almodovar, Marian Her, Tommy Valentine and colleagues, with an educational momo from [employer] Physical exam (Primary Care) Vital Signs: Last Vital Signs Temp 97.1 F 02/21/25 11:26 Resp 18 02/21/25 11:26 BP 200/108 H 02/21/25 11:45 Oxygen Delivery Method Room Air 02/21/25 11:26 BMI result Body Mass Index 30.9 Tobacco/Smoking Status: Tobacco use Status Tobacco use date assessed 02/21/25 02/21/25 11:27 Patient Tobacco Use Status Never used Tobacco 02/21/25 11:27 e-Cigarette/Vaping Use Never Used 02/21/25 11:27 Thrive Assessment: Date of Thrive Assessment Date Thrive assessed 02/12/25 02/21/25 11:27 Coding Level of Care Code Est Pt Level 2 (82295) Diagnoses Uncontrolled hypertension I10 Time Spent (min) 10 Assessment & Plan Assessment & Plan (1) Uncontrolled hypertension: Code(s): I10 - Essential (primary) hypertension Category: Medical Plan: Blood pressure continues to be elevated on recheck visit with nurse. Valsartan increased to 320 mg daily. Will continue to monitor. Medications: Discontinued valsartan Discontinued Reason: Duplicate 320 mg PO DAILY 30 tabs 3RF
[2025-02-21 11:45] VITALS: BP 200/108
--- OUTSIDE RECORDS SUMMARY | 2025-02-21 14:33 | XMS_ITS | Patient Health Record ---
Author Organization [facility] Address [address] [place] [address] Care Team Providers Care Guest Advisor Name Role Phone Yeison MOULTON, Lamont Primary Care Provider Jalen Blount Jr Unavailable [phone] Allergies No Known Allergies Reason For Referral [...] Problem Status W/U Status Risk Notes Problem [id number] Colon cancer screening (Z12.11) Active confirmed Problem Dysphagia (75413645) Dysphagia (R13.10) Active confirmed Problem [id number] Dysphagia, unspecified type (R13.10) Active confirmed Plan Of Treatment Future Test Test Name Order Date UPPER GI ENDOSCOPY 11/02/2022 COLONOSCOPY 11/02/2022 Insurance Providers Payer Name Payer Address Payer Phone Subscriber Number Group Number Insured Name Patient Relationship to Insured Coverage Start Date Coverage End Date [facility] [address] [address] [place], [place] [id number] GENA TREVINO Self - patient is the insured Medical (General) History Medical History History ICD Code Diabetes mellitus type 2 Hypertension Depression Elevated cholesterol Surgical History Surgery Date(Month/Year) daniela removed 1987
--- OUTSIDE RECORDS SUMMARY | 2025-02-21 14:33 | XMS_ITS | Encounter Summary ---
Author Organization [facility] Address [address] [facility] [address] [facility] [address] [place] [address] Phone Care Team Providers Care Neuroscientist Name Role Phone Lamont Latham MD Primary Care Provider [phone] Reason for Visit * Reason Comments Med Refill Encounter Details Date Type Department Care Team ([facility] st Contact Info) Description 12/18/2020 Refill [facility] [address] [place] [address] Bobby Ordonez MD [address] [facility] [address] [place] [address] Social History Tobacco Use Types [...] on filedocumented in this encounter Care Teams Neuroscientist Relationship Specialty Start Date End Date Lamont Latham MD [address] [place], [place] PCP - General Internal Medicine 08/24/23 documented as of this encounter
--- OUTSIDE RECORDS SUMMARY | 2025-02-21 14:33 | XMS_ITS | Clinical Summary ---
Author Organization [facility] Address [address] [place] [address] Phone Care Team Providers Care Regional Cra Name Role Phone Lamont Latham MD Primary Care Provider [phone] Allergies No known active allergies Medications valACYclovir [...] Gluc Sensor (FreeStyle Jessica 14 Day Sensor) [facility] USE DIRECTED EVERY 2 WEEKS 01/24/2021 Active [...] Sigmoidoscopy 2018 Influenza Vaccine (#1) 2025 Insurance [facility] Medicaid [facility] Medicaid Care Teams Regional Cra Relationship Specialty Start Date End Date Lamont Latham MD [address] [place], [place] PCP - General Internal Medicine 08/24/23
== END 2025-02-21 11:54 | disposition home or self-care (01) ==
LOC: HO.HMCH 11:24
DX: I10 Essential (primary) hypertension (principal)

== ENCOUNTER → 2025-02-21 11:24 | Outpatient (BNVA) | payer OTHER, SELFPAY | DX: I10 Essential (primary) hypertension (principal) | CPT/HCPCS: 99212 ==

== ENCOUNTER 2025-02-22 09:17 | Outpatient (REF) | payer OTHER, SELFPAY ==
[2025-02-22 09:28] LABS: MANUAL DIFF FLAG NO
[2025-02-22 09:56] LABS: Hematocrit 42.5 % (42.0-52.0); Hemoglobin 15.3 g/dl (14.0-18.0); Imm Gran Abs Auto 0.01 X10*3/uL (0.00-0.03); Imm Gran Pct Auto 0.2 % (0.0-0.4); Lymphocytes Absolute Auto 1.6 X10*3/uL (1.2-4.9); Mean Corpuscular HGB Conc 36.0 g/dl (31.0-36.0); Mean Corpuscular Hemoglobin 29.3 pg (27.0-33.0); Mean Corpuscular Volume 81.4 fL (80.0-98.0); NRBC Abs Auto 0.000 X10*3/uL (0.0-0.012); NRBC Pct Auto 0.0 /100WBC (0.0-0.2); Platelet Count 148 X10*3/uL (160-400); Red Blood Count 5.22 X10*6/uL (4.60-5.80); White Blood Count 5.1 X10*3/uL (4.8-10.8)
--- OUTSIDE RECORDS SUMMARY | 2025-02-22 10:17 | XMS_ITS | Encounter Summary ---
Author Organization [facility] Address [address] [facility] [address] [facility] [address] [place] [address] Phone Care Team Providers Care Weaver Dobby Loom Name Role Phone Lamont Latham MD Primary Care Provider [phone] Reason for Visit * Reason Comments Med Refill Encounter Details Date Type Department Care Team ([facility] st Contact Info) Description 12/18/2020 Refill [facility] [address] [place] [address] Bobby Ordonez MD [address] [facility] [address] [place] [address] Social History Tobacco Use Types [...] on filedocumented in this encounter Care Teams Weaver Dobby Loom Relationship Specialty Start Date End Date Lamont Latham MD [address] [place], [place] PCP - General Internal Medicine 08/24/23 documented as of this encounter
--- OUTSIDE RECORDS SUMMARY | 2025-02-22 10:17 | XMS_ITS | Clinical Summary ---
Author Organization [facility] Address [address] [place] [phone] Phone Care Team Providers Care Mesmerist Name Role Phone Lamont Latham MD Primary Care Provider [phone] Allergies No known active allergies Medications valACYclovir [...] Gluc Sensor (FreeStyle Jessica 14 Day Sensor) [facility] USE DIRECTED EVERY 2 WEEKS 01/24/2021 Active [...] Sigmoidoscopy 2018 Influenza Vaccine (#1) 2025 Insurance [facility] Medicaid [facility] Medicaid Care Teams Mesmerist Relationship Specialty Start Date End Date Lamont Latham MD [address] [place], [place] PCP - General Internal Medicine 08/24/23
--- OUTSIDE RECORDS SUMMARY | 2025-02-22 10:17 | XMS_ITS | Patient Health Record ---
Author Organization [facility] Address [address] [place] [address] Care Team Providers Care Demolition Specialist Name Role Phone Yeison MOULTON, Lamont Primary Care Provider Jalen Blount Jr Unavailable [phone] Allergies No Known Allergies Reason For Referral [...] Problem Status W/U Status Risk Notes Problem [id number] Colon cancer screening (Z12.11) Active confirmed Problem Dysphagia (70147701) Dysphagia (R13.10) Active confirmed Problem 13573599 Dysphagia, unspecified type (R13.10) Active confirmed Plan Of Treatment Future Test Test Name Order Date UPPER GI ENDOSCOPY 11/02/2022 COLONOSCOPY 11/02/2022 Insurance Providers Payer Name Payer Address Payer Phone Subscriber Number Group Number Insured Name Patient Relationship to Insured Coverage Start Date Coverage End Date [facility] [address] [address] [place], [place] [id number] GENA TREVINO Self - patient is the insured Medical (General) History Medical History History ICD Code Diabetes mellitus type 2 Hypertension Depression Elevated cholesterol Surgical History Surgery Date(Month/Year) daniela removed 1987
[2025-02-22 10:31] LABS: Appearance Urine Clear; Glucose Urine UA Negative (Negative); PH 6.0 (5.0-9.0); Specific Gravity - Urine 1.020 (1.005-1.025)
[2025-02-22 10:40] LABS: Alanine Aminotransferase 31 U/L (0-40); Albumin Level 4.8 g/dL (3.5-5.0); Alkaline Phosphatase 58 U/L (39-117); Amylase 42 U/L (28-100); Anion Gap 12 (12-20); Aspartate Amino Transferase 23 U/L (5-37); Blood Urea Nitrogen 19 mg/dL (9-16); Calcium 9.4 mg/dL (8.4-10.2); Carbon Dioxide 29 mmol/L (22-29); Chloride 103 mmol/L (96-108); Cholesterol 298 mg/dL (<200); Estimated Glomerular Filt Rate > 60; HDL Cholesterol 40 mg/dL (>40); Lipase 29 U/L (8-78); Potassium 3.9 mmol/L (3.3-5.1); Sodium 140 mmol/L (135-145); Total Protein 7.2 g/dL (6.5-8.0); Triglycerides 340 mg/dL (<150)
[2025-02-22 10:49] LABS: PSA,Total (Free>4and<10) 1.34 ng/mL (0.00-4.00)
[2025-02-26 14:59] LABS: Transglutaminase Ab IgG <1.0 U/mL
== END 2025-02-22 09:18 | disposition home or self-care (01) ==
LOC: HO.LAB 09:17
DX: Z00.00 Encounter for general adult medical examination without abnormal findings (principal); F41.0 Panic disorder [episodic paroxysmal anxiety]; I10 Essential (primary) hypertension; E78.5 Hyperlipidemia, unspecified; E78.1 Pure hyperglyceridemia; E11.9 Type 2 diabetes mellitus without complications; R14.0 Abdominal distension (gaseous)
CPT/HCPCS: 36415; 80053; 80061; 81003; 82150; 82306; 83690; 84153; 84443; 85025; 86364

== ENCOUNTER → 2025-03-02 11:33 | Outpatient (BNVA) | payer OTHER, SELFPAY | DX: I10 Essential (primary) hypertension (principal) | CPT/HCPCS: 99211 ==

== ENCOUNTER 2025-04-06 10:54 | Outpatient (AMB) | payer OTHER, SELFPAY ==
[2025-04-06 11:12] VITALS: BP 172/92; PULSE 112; O2SAT 98; BMI 31.7
--- NOTE | 2025-04-06 11:12 | A.OFFVIS_ITS ---
Vital Signs 04/06/25 11:12 Height 5 ft 8 in Weight 208 lb 12.444 oz BMI 31.7 BP 172/92 H Blood Pressure Location Rt brachial Position Sitting Pulse 112 H Pulse Source Pulse Oximeter Pulse Oximetry (%) 98 Oxygen Delivery Method Room Air Intake Visit Reasons: DM with hyperglycemia Intake Note: Patient present today to follow up on Type 2 Diabetes Mellitus. Last Diabetic Eye exam: 12/21/2024 [facility] Last Podiatry Visit: Has not seen Dr. Linton, needs to make an appointment Random Glucose: 156 mg/dl Hgb A1C: 6.7% 02/12/2025 Census Taker Required: No Accompanied by: Self / Same As Patient Allergies No Known Allergies Allergy (Verified 04/06/25 11:13) HPI Comments Details: Patient is a 53 year old male with DM type 2 diagnosed July 2019 who presents for management of diabetes. He was last seen by me on 02/18/24. Hemoglobin A1c 6.7% 02/12/2025. CGM was approved. He needs to pick it up from the pharmacy. Reviewed glucometer data In range 71% Average glucose 146 mg/dL Readings per day 2.6 Highest to 64 Lowest 61 Patient says he had 1 low blood sugar since he was seen when he administered Humalog after a meal set up before it. Current regimen: He started Lantus 10 units nightly, Humalog sliding scale and metformin ER 1000 mg twice daily. He is not taking metformin. He says he has not been taking it for the past 6 months though it was on his med list. He is not using the sliding scale. He is administering Humalog 6 units before meals. Past medication: Acarbose caused nausea and didn't feel well. Glipizide was discontinued due to hypoglycemia. Compliance issues: Yes Patient also met with the dietitian. No alcohol or tobacco use. Hypoglycemia symptoms: none Hyperglycemia symptoms: none Eye exam: UTD Dr. Rivera Microvascular complications: neuropathy Macrovascular complications: none Hypertension: treated with Valsartan 320 mg. This this was increased a few weeks ago. He also takes hydrochlorothiazide 25 mg daily. He is also on doxazosin 2 mg daily. His blood pressure is elevated today. Reports in the past lisinopril and amlodipine caused side effects. Patient believes anxiety and stress are contributing to this, and he is going to start seeing a therapist. Patient was referred to Podiatry for neuropathy and bilateral foot pains at the balls of his feet. ROS: Constitutional: No unexplained weight loss, fever, chills, fatigue or night sweats. Eyes: No vision changes, blurry vision, double vision Respiratory: No shortness of breath Cardiovascular: No chest pain or leg swelling. Gastrointestinal: No anorexia, nausea, vomiting or diarrhea. No abdominal pain Neurologic: No headache, dizziness, syncope Endocrine: No cold or heat intolerance. No polyuria or polydipsia. Physical exam: Constitutional: Alert, in no distress. Head: Normocephalic. Eyes: Pupils are equal, round and reactive to light. Extraocular muscles intact. Neck: Supple, Full range of motion. No lymphadenopathy. Respiratory: Clear to auscultation. Cardiovascular: S1 S2 regular. No murmurs. [facility] Medical History Type 2 diabetes mellitus with hyperglycemia Type II diabetes mellitus with neurological manifestations Depression Hypertriglyceridemia Asthma Essential hypertension Hyperlipidemia LDL goal <100 Obesity (BMI 30-39.9) Type 2 diabetes mellitus without complications Surgical History History of removal of skin mole Family History Father CHF (congestive heart failure) Afib Myocardial infarction CVD (cardiovascular disease) Discoid lupus Mother CAD (coronary artery disease) Social History Household Members: Spouse and Children Housing: House Alcohol intake: never Patient Tobacco Use Status: Never used Tobacco e-Cigarette/Vaping Use: Never Used Second Hand Smoke Exposure: Yes service: No Current occupational status: employed and unemployed 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 Cognitive needs: No Hearing needs: No Vision needs: No Physical Exam Vital Signs: Last Vital Signs Pulse 112 H 04/06/25 11:12 BP 172/92 H 04/06/25 11:12 Pulse Ox 98 04/06/25 11:12 Oxygen Delivery Method Room Air 04/06/25 11:12 BMI result Body Mass Index 31.7 Results Reviewed Results Reviewed: Laboratory Last Values Glucose (Clinic) 156 mg/dL (60-115) H 04/06/25 11:27 Laboratory Tests 11/10/19 09/23/23 02/04/24 11:50 11:52 13:16 Creatinine 1.16 Estimated GFR > 60 Glucose (Clinic) Hgb A1c (Clinic) > 14 H AST ALT Triglycerides Cholesterol LDL Cholesterol, Calc HDL Cholesterol TSH Urine Microalbumin 10.0 Microalb/Creat Ratio 9.2 Protein/Creatinin Ratio TNP Islet Cell Ab Screen NEGATIVE Islet Cell Ab Titer TNP Anti-IA2 Antibody <5.4 EUGENIA Antibody <5 02/18/24 02/22/25 11:51 09:27 Creatinine 1.01 Estimated GFR > 60 Glucose (Clinic) 504 H* Hgb A1c (Clinic) AST 23 ALT 31 Triglycerides 340 H Cholesterol 298 H LDL Cholesterol, Calc 190 H HDL Cholesterol 40 L TSH 1.90 Urine Microalbumin Microalb/Creat Ratio Protein/Creatinin Ratio Islet Cell Ab Screen Islet Cell Ab Titer Anti-IA2 Antibody EUGENIA Antibody Assessment & Plan Assessment & Plan (1) Type II diabetes mellitus with neurological manifestations: Code(s): E11.49 - Type 2 diabetes mellitus with other diabetic neurological complication Category: Medical (2) Uncontrolled hypertension: Code(s): I10 - Essential (primary) hypertension Category: Medical Plan In summary this is a 53 year old male with controlled type 2 diabetes here for diabetic management. He would like to try to simplify his medication regimen. Restart metformin extended release 500 mg daily. Continue Lantus 10 units nightly. Try stopping Humalog. Check blood sugar 1 hour after meals, and if they are over 180 after week on this regimen increase metformin to a 1000 mg daily. He will picker the CGM and bring the reader to his next visit. Treatment of hypo/hyperglycemia reviewed in detail with the patient. Warning signs warranting ER evaluation reviewed. Referred back to Dr. Ordonez for uncontrolled hypertension. Continue current regimen and add carvedilol 3.125 mg twice daily. Side effects reviewed. He has a dressing anxiety. Follow up in 4-6 weeks. Orders: Referrals Nephrology Referral I10 - Essential (primary) hypertension Medications: New carvedilol 3.125 mg PO BID 60 tabs 1RF Patient Instructions: Continue lantus 10 units at night time Restart Metformin extended release 500 mg every morning Try stopping Humalog when you start Metformin If sugar is over 180 after meals (check 1 hour after) after a week on this regimen, increase Metformin to 1000 mg in the morning. Start Carvedilol 3.125 mg twice daily Coding Level of Care Code Est Pt Level 4 (04554) Complex EM visit Add On G2211 Diagnoses Type II diabetes mellitus with neurological manifestations E11.49 Uncontrolled hypertension I10
[2025-04-06 11:31] LABS: Glucose, Whole Blood 156 mg/dL (60-115)
--- OUTSIDE RECORDS SUMMARY | 2025-04-06 13:08 | XMS_ITS | Encounter Summary ---
Author Organization [facility] Address [address] [facility] [address] [facility] [address] [place] [address] Phone Care Team Providers Care Electronic Commerce Specialist Name Role Phone Lamont Latham MD Primary Care Provider [phone] Reason for Visit * Reason Comments Med Refill Encounter Details Date Type Department Care Team ([facility] st Contact Info) Description 12/18/2020 Refill [facility] [address] [place] [address] Bobby Ordonez MD [address] [facility] [address] [place] [address] Social History Tobacco Use Types [...] on filedocumented in this encounter Care Teams Electronic Commerce Specialist Relationship Specialty Start Date End Date Lamont Latham MD [address] [place], [place] PCP - General Internal Medicine 08/24/23 documented as of this encounter
--- OUTSIDE RECORDS SUMMARY | 2025-04-06 13:08 | XMS_ITS | Patient Health Record ---
Author Organization [facility] Address [address] [place] [address] Care Team Providers Care Pulmonary Nurse Practitioner Name Role Phone Yeison MOULTON, Lamont Primary Care Provider Jalen Blount Jr Unavailable Allergies No Known Allergies Reason For Referral No Information Medications Medication SIG (Take, Route, Frequency, Duration) Notes Start Date End Date Status Sertraline HCl 50 MG Oral; Duration: 60 Active amLODIPine Besylate 10 MG Oral; Duration: 30 Active metFORMIN HCl 500 MG Oral; Duration: 30 Active FLUoxetine HCl 20 MG Oral; Duration: 90 Active Atorvastatin Calcium 40 MG Oral; Duration: 30 Active hydroCHLOROthiazide 25 MG Oral; Duration: 90 Active Immunizations Vaccine Route Administration Date [...] Problem Status W/U Status Risk Notes Problem Colon cancer screening (066838316) Colon cancer screening (Z12.11) Active confirmed Problem Dysphagia (50300674) Dysphagia (R13.10) Active confirmed Problem Dysphagia (07299272) Dysphagia, unspecified type (R13.10) Active confirmed Plan Of Treatment Future Test Test Name Order Date UPPER GI ENDOSCOPY 11/02/2022 COLONOSCOPY 11/02/2022 Insurance Providers Payer Name Payer Address Payer Phone Subscriber Number Group Number Insured Name Patient Relationship to Insured Coverage Start Date Coverage End Date [facility] [address] [address] [place], [place] [id number] [phone] [id number] GENA TREVINO Self - patient is the insured Medical (General) History Medical History History ICD Code Diabetes mellitus type 2 Hypertension Depression Elevated cholesterol Surgical History Surgery Date(Month/Year) daniela removed 1987
--- OUTSIDE RECORDS SUMMARY | 2025-04-06 13:08 | XMS_ITS | Clinical Summary ---
Author Organization [facility] Address [address] [place] [phone] Phone Care Team Providers Care Preventive Maintenance Engineer Name Role Phone Lamont Latham MD Primary Care Provider [phone] Allergies No known active allergies Medications valACYclovir [...] Gluc Sensor (FreeStyle Jessica 14 Day Sensor) [facility] USE DIRECTED EVERY 2 WEEKS 01/24/2021 Active [...] Sigmoidoscopy 2018 Influenza Vaccine (#1) 2025 Insurance [facility] Medicaid [facility] Medicaid Care Teams Preventive Maintenance Engineer Relationship Specialty Start Date End Date Lamont Latham MD [address] [place], [place] PCP - General Internal Medicine 08/24/23
== END 2025-04-06 12:16 | disposition home or self-care (01) ==
LOC: HO.ENCR 10:55
PROVIDERS: Visit Provider Physician Assistant Medical
DX: E11.49 Type 2 diabetes mellitus with other diabetic neurological complication (principal); I10 Essential (primary) hypertension

== ENCOUNTER → 2025-04-06 10:54 | Outpatient (BNVA) | payer OTHER, SELFPAY | PROVIDERS: Visit Provider Physician Assistant Medical | DX: E11.49 Type 2 diabetes mellitus with other diabetic neurological complication (principal); E11.65 Type 2 diabetes mellitus with hyperglycemia; Z79.4 Long term (current) use of insulin | CPT/HCPCS: 82947; 99212 ==

== ENCOUNTER 2025-04-23 09:20 | Outpatient (AMB) | payer OTHER, SELFPAY ==
[2025-04-23 09:45] VITALS: BP 200/116; PULSE 73; RESP 18; O2SAT 97; BMI 31.4
--- NOTE | 2025-04-23 09:45 | A.OFFPC_ITS ---
Vital Signs 04/23/25 09:45 Height 5 ft 8 in Weight 206 lb 6 oz BMI 31.4 BP 200/116 H Blood Pressure Location Lt brachial Position Sitting Respiration 18 Pulse 73 Pulse Source Pulse Oximeter Temp Source Temporal Artery Scan Pulse Oximetry (%) 97 Oxygen Delivery Method Room Air Intake Visit Reasons: discuss high BP readings from Dental office Director Food And Beverage Required: No Accompanied by: Self / Same As Patient Allergies No Known Allergies Allergy (Verified 04/23/25 09:45) Tobacco use date assessed: 04/23/25 Dental Screening Dental Screen Date: 04/23/25 HPI HPI Comments History of Present Illness Details The patient is a 54 year old individual presenting for management of chronic conditions, primarily hypertension and anxiety. The patient's freight rate specialist recently initiated carvedilol 3.125 mg for hypertension. Despite this, the patient's blood pressure remains significantly elevated, which has precluded a planned dental cleaning and wisdom tooth extraction. The patient reports a history of anxiety and panic attacks and is currently attempting to schedule an appointment with a therapist. A previous physician had prescribed fluoxetine, which the patient found effective; however, it was discontinued and switched to sertraline, which was not as helpful. The patient expresses significant distress and frustration about health, fearing a stroke. The patient describes symptoms consistent with nasal obstruction and sleep apnea, including the sensation of nasal passages collapsing upon lying down, which causes breathing to stop and panicked awakenings. The patient has been using nasal strips with minor relief. An urgent referral for a home sleep study was made, but the patient has not yet been contacted, and an appointment with an ENT specialist is scheduled for August. Health Maintenance The patient was advised to engage only in light exercise, such as walking, and to practice deep breathing until hypertension is better controlled. Strenuous activity should be avoided. The patient was encouraged to increase water intake. The patient will follow up with the dentist for wisdom tooth extraction and TMJ management once blood pressure is stabilized. Social History - Exercise: The patient plans to join [employer] to engage in light exercise, such as walking on a treadmill. - Nutrition: The patient reports using a salt substitute (magnesium/potassium- based) for flavoring food and acknowledges inadequate water intake. - Weight Management: The patient express es a desire to lose approximately 35 pounds and is concerned about abdominal size. - Stress: The patient reports significan t frustration and stress related to ongoing health issues and the perceived lack of treatment efficacy. Results - Labs: Last sodium level was 140. - Labs: Kidney function is reported as o german. [facility] Medical History Type 2 diabetes mellitus with hyperglycemia Type II diabetes mellitus with neurological manifestations Depression Hypertriglyceridemia Asthma Essential hypertension Hyperlipidemia LDL goal <100 Obesity (BMI 30-39.9) Type 2 diabetes mellitus without complications Surgical History History of removal of skin mole Family History Father CHF (congestive heart failure) Afib Myocardial infarction CVD (cardiovascular disease) Discoid lupus Mother CAD (coronary artery disease) Social History Household Members: Spouse and Children Housing: House Alcohol intake: never Patient Tobacco Use Status: Never used Tobacco e-Cigarette/Vaping Use: Never Used Second Hand Smoke Exposure: Yes service: No Current occupational status: employed and unemployed 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 1. Little interest or pleasure in doing things: not at all 2. Feeling down, depressed, or hopeless: several days 3. Trouble falling or staying asleep, or sleeping too much: nearly every day 4. Feeling tired or having little energy: several days 5. Poor appetite or overeating: several days 6. Feeling bad about yourself - or that you are a failure or have let yourself or your family down: not at all 7. Trouble concentrating on things, such as reading the newspaper or watching television: several days 8. Moving or speaking so slowly that other people could have noticed. Or the opposite - being so fidgety or restless that you have been moving around a lot more than usual: not at all 9. Thoughts that you would be better off or of hurting yourself in some way: not at all Total score: 7 Depression Screening Interpretation: Positive Depression Screening Done: Yes 89864 - PHQ-9 Billing: Yes Source: Developed by Drs. Tejas Almodovar, Marian Her, Tommy Valentine and colleagues, with an educational momo from [employer]. Thrive Questionnaire Date Thrive assessed: 04/23/25 I am a: Patient What is your living situation today?: I have a steady place to live Within the past 12 months, did the food you bought not last and you didn't have the money to get more?: Never true Within the past 12 months, did you worry whether your food would run out before you got money to buy more?: Never true Do you have trouble paying for medicines?: No Do you have trouble getting transportation to medical appointments?: No Do you have trouble paying your heating and electricity bill?: No Do you have trouble taking care of your child, family member or friend?: No Do you have trouble with day-to-day activities such as bathing, preparing meals, shopping, managing finances, etc.?: No Are you currently unemployed and looking for a job?: No Are you interested in more education?: Yes Please select the resources that you would like help with: Education Currently or been in a relationship where the following occur: No concerns reported THRIVE Score: 0 EUGENIA-7 AMB Questionnaire EUGENIA-7 Date EUGENIA - 7 assessed: 04/23/25 Feeling nervous, anxious, or on edge: 2 = More than half the days Not being able to stop or control worryin = More than half the days Worrying too much about different things: 2 = More than half the days Trouble relaxin = More than half the days Being so restless that it is hard to sit still: 2 = More than half the days Becoming easily annoyed or irritable: 0 = Not at all Feeling afraid as if something awful might happen: 0 = Not at all Total EUGENIA-7 score (0-4 normal; 5-9 mild; 10-14 moderate; 15-21 severe): 10 Source: Developed by Drs. Tejas Almodovar, Marian Her, Tommy Valentine and colleagues, with an educational momo from [employer]. EUGENIA-7 Assessment Billing EUGENIA-7 Assessment Tool: EUGENIA-7 Assessment 51910 Review of Systems Narrative Review of Systems - Constitutional: Reports fatigue and frustration. - HEENT: Reports nasal obstruction, especially when supine. - Cardiovascular: Denies chest pain. Reports a history of high heart rate. - Respiratory: Reports episodes of apnea when lying down, leading to panicked awakenings. - Musculoskeletal: Reports lower back pain and soreness with clicking in the jaw. - Psychiatric: Reports anxiety, panic attacks, stress, and feeling frustrated. - Endocrine: Reports having diabetes, which is stated to be well-managed. Const Denies headache(s) Eyes Denies loss of vision ENT Reports dental pain, Denies vertigo, Denies dizziness, Denies headache(s) and Denies sore throat Card Denies chest pain, Denies leg edema and Denies lightheadedness Resp Denies cough, Denies hemoptysis and Denies wheezing GI Denies abdominal pain, Denies melena, Denies constipation, Denies diarrhea and Denies vomiting Denies dysuria, Denies urinary frequency and Denies urinary urgency Musc Denies arthralgias, Denies joint swelling, Denies numbness and Denies tingling Neuro Denies Abnormal speech present, Denies behavioral changes, Denies vertigo, Denies dizziness, Denies headache(s), Denies loss of vision, Denies memory loss, Denies numbness and Denies tingling Psych Reports anxiety, Denies behavioral changes, Denies depression, Denies memory loss and Reports panic attacks Tej/Lymph Denies easy bleeding and Denies easy bruising Aller/Immun Denies wheezing Physical exam (Primary Care) Vital Signs: Last Vital Signs Pulse 73 04/23/25 09:45 Resp 18 04/23/25 09:45 BP 200/116 H 04/23/25 09:45 Pulse Ox 97 04/23/25 09:45 Oxygen Delivery Method Room Air 04/23/25 09:45 BMI result Body Mass Index 31.4 Tobacco/Smoking Status: Tobacco use Status Tobacco use date assessed 04/23/25 04/23/25 09:46 Patient Tobacco Use Status Never used Tobacco 04/23/25 09:46 e-Cigarette/Vaping Use Never Used 04/23/25 09:46 PHQ-9: PHQ-9 Score PHQ-9: Total score 7 04/23/25 13:07 Depression Screening Interpretation: Positive Thrive Assessment: Date of Thrive Assessment Date Thrive assessed 04/23/25 04/23/25 09:46 Currently or been in a relationship where the following occur: No concerns reported Narrative Physical Exam - HEENT: Palpation over the right temporomandibular joint reveals tenderness and an audible click with jaw movement. Const General: healthy appearing, no acute distress, alert and awake Nutritional Appearance: well nourished Orientation/consciousness: oriented to person, oriented to place and oriented to time HENMT Ears: TM's normal bilaterally General nose exam: Normal nasal mucous membranes and turbinates present Throat: Yes posterior oropharynx normal Eyes Conjunctivae: conjunctivae normal Sclerae: sclerae normal Pupils: Equal, round and reactive pupils present Neck Neck: Yes no lymphadenopathy and Yes no JVD Thyroid: Thyroid normal Carotids: no bruits Resp Effort & Inspection: normal respiratory effort and not tachypneic Auscultation: no crackles, no rales, no rhonchi and no wheezes Cardio Rate: regular rate Rhythm: regular rhythm Heart sounds: no murmurs and normal S1 and S2 GI Palpation (GI): Soft to palpation, nontender, no hepatomegaly and no splenomegaly Auscultation: normal bowel sounds General: Yes no CVA tenderness Back/Spine/Pelvis Back: no CVA tenderness Skin General skin exam: no rashes or lesions noted and dry skin Neuro General: oriented to person, oriented to place and oriented to time Cranial nerves: Yes Equal, round and reactive pupils present Speech: No Abnormal speech present Gait exam (Neuro): Normal gait present Motor exam (neuro): no tremor noted Extrem Right upper extremity: full ROM Left upper extremity: full ROM Right lower extremity: full ROM; no edema Left lower extremity: full ROM; no edema Psych Mental Status: mental status grossly normal Speech and movement: Normal speech and movement present Affect: normal affect Attitude: cooperative Thought process: Normal thought process present Coding Level of Care Code Est Pt Level 4 (93000) Diagnoses Essential hypertension I10 Obstructive sleep apnea syndrome G47.33 Sleep apnea type: obstructive Panic disorder F41.0 Anxiety F41.9 Jaw pain R68.84 Additional Codes EUGENIA-7 Assessment Billing - EUGENIA-7 Assessment Tool: EUGENIA-7 Assessment 87450 ([id number]) PHQ-9 - 69806 - PHQ-9 Billing: Yes ([id number]) Time Spent (min) 38 Assessment & Plan Assessment & Plan (1) Essential hypertension: Code(s): I10 - Essential (primary) hypertension Category: Medical (2) Sleep apnea: Code(s): G47.30 - Sleep apnea, unspecified Category: Medical Qualifiers: Sleep apnea type: obstructive Qualified Code(s): G47.33 - Obstructive sleep apnea (adult) (pediatric) (3) Panic disorder: Code(s): F41.0 - Panic disorder [episodic paroxysmal anxiety] Category: Medical (4) Anxiety: Code(s): F41.9 - Anxiety disorder, unspecified Category: Medical (5) Jaw pain: Code(s): R68.84 - Jaw pain Category: Medical Plan Plan Patient was informed and verbally consented to the use of an ambient scribe for clinic note documentation during this visit. 1. Essential Hypertension The patient's hypertension is uncontrolled and is a major source of frustration and a barrier to other medical care, such as dental procedures. The etiology is likely multifactorial, with contributions from anxiety and suspected sleep apnea. The plan is to increase carvedilol from 3.125 mg to 6.25 mg twice daily. The patient was counseled to monitor for bradycardia, a potential side effect of the increased dose. A follow-up visit for a blood pressure check is scheduled in approximately one week. 2. Generalized Anxiety Disorder The patient reports anxiety and panic attacks and has a history of a good response to fluoxetine. To manage symptoms while the patient awaits a therapy appointment, a prescription for fluoxetine 20 mg will be restarted. The plan is to start at a low dose and titrate as needed. A follow-up will occur in one month to assess the patient's response to the medication and overall anxiety levels. 3. Obstructive Sleep Apnea, Suspected The patient's symptoms of nasal obstruction, apneic spells, and panicked awakenings are highly suggestive of obstructive sleep apnea (ALEJANDRA). An urgent referral was previously made for a home sleep study, and the patient will follow up to obtain the contact number to schedule the test. The patient will also proceed with the scheduled ENT appointment in August. CPAP therapy is anticipated to be beneficial for both sleep quality and blood pressure control. 4. Temporomandibular Joint Dysfunction The physical exam revealed tenderness and clicking in the jaw, consistent with TMJ dysfunction. The patient was informed that this is a dental issue, possibly related to bruxism. It was recommended that the patient see a dentist for evaluation and a possible custom-fitted mouth guard, which may also improve breathing. Discussion Notes I discussed with the patient that the patient's health issues, particularly hypertension, are complex and likely multifactorial, involving anxiety and probable sleep apnea. We agreed to increase the carvedilol dose to 6.25 mg twice daily, and I advised the patient to monitor for any signs of an excessively low heart rate. We will also restart fluoxetine 20 mg for anxiety and panic attacks, which was effective in the past. I emphasized the importance of following up on the urgent referral for a home sleep study to evaluate for sleep apnea. I explained that the patient's jaw pain is likely due to TMJ dysfunction, which is a dental issue, and recommended seeing a dentist for management, including a possible mouth guard. I advised the patient to limit physical activity to light walking until blood pressure is controlled. The follow-up plan includes a blood pressure check in one week and a more comprehensive follow-up visit with me in one month. Patient Instructions - Take one tablet of Carvedilol 6.25 mg by mouth twice a day for your blood pressure. - Start taking Fluoxetine 20 mg by mouth once daily for anxiety. - Check your blood pressure regularly at home, especially now that we have increased your medication. - Contact the office to get the phone number for the sleep study center and schedule your home sleep test. - Keep your appointment with the Ear, Nose, and Throat (ENT) doctor in August. - Talk to your dentist about your jaw pain and ask if a mouth guard would be helpful. - For now, please only do light exercise like walking. Avoid any heavy or strenuous activity until your blood pressure is better controlled. - Make sure to drink more water throughout the day. - Please return to the clinic in one week for a blood pressure check. - Schedule a follow-up appointment with this office in one month to review your progress. Medications: New fluoxetine 20 mg PO DAILY 30 caps 3RF Changed From carvedilol 3.125 mg PO BID 60 tabs 1RF To carvedilol 6.25 mg (2 x 3.125 mg) PO BID 120 tabs 1RF 30 days
--- OUTSIDE RECORDS SUMMARY | 2025-04-23 10:30 | XMS_ITS | Clinical Summary ---
Author Organization [facility] Address [address] [place] [phone] Phone Care Team Providers Care Cryptographic Center Specialist Name Role Phone Cesia Shirley PA-C Primary Care Provider [phone] Allergies No known active allergies Medications valACYclovir [...] Gluc Sensor (FreeStyle Jessica 14 Day Sensor) [facility] USE DIRECTED EVERY 2 WEEKS 01/24/2021 Active [...] 08/08/2018 12:00 PM EDT Plan of Treatment Upcoming Encounters Date Type Department Care Team (Late st Contact Info) Description 05/10/2025 2:00 PM EST Office Visit [facility] [address] [facility] [place] [address] Bobby Ordonez MD [address] [phone] Health Maintenance Due Date Last Done Comments Hepatitis B Vaccine (1 of 3 - 19+ 3-dose series) 05/18 Pneumococcal Vaccine: 50+ Years (1 of 2 - PCV) 988 Colorectal Cancer Screening: Annual FOBT 2018 Colorectal Cancer Screening: Colonoscopy 2018 Colorectal Cancer Screening: Sigmoidoscopy 2018 Influenza Vaccine (#1) 2025 Insurance [facility] Medicaid [facility] Medicaid Care Teams Cryptographic Center Specialist Relationship Specialty Start Date End Date Cesia Shirley PA-C [address] [place] [id number] PCP - General Internal Medicine 04/09/25
--- OUTSIDE RECORDS SUMMARY | 2025-04-23 10:30 | XMS_ITS | Encounter Summary ---
Author Organization [facility] Address [address] [facility] [address] [place] [address] Phone Care Team Providers Care Oven Builder Name Role Phone Casper Cesia MORA Primary Care Provider Reason for Visit * Reason Comments Med Refill Encounter Details Date Type Department Care Team (Late Contact Info) Description 12/18/2020 Refill [facility] [address] [facility] [address] [place] [address] Bobby Ordonez MD [address] [facility] [address] [place] [address] Social History Tobacco Use Types [...] documented in this encounter Plan of Treatment Upcoming Encounters Date Type Department Care Team (Late Contact Info) Description 05/10/2025 2:00 PM EST Office Visit [facility] [address] [place] [address] Bobby Ordonez MD [address] [facility] [address] [place] [address] documented as of this encounter Visit Diagnoses Not on filedocumented in this encounter Care Teams Oven Builder Relationship Specialty Start Date End Date Cesia Shirley PA-C [address] [place] [phone] PCP - General Internal Medicine 04/09/25 documented as of this encounter
--- OUTSIDE RECORDS SUMMARY | 2025-04-23 10:30 | XMS_ITS | Patient Health Record ---
Author Organization [facility] Address [address] [place] [address] Care Team Providers Care Biostatistics Professor Name Role Phone Yeison MOULTON, Lamont Primary Care Provider Jalen Blount Jr Unavailable Allergies No Known Allergies Reason For Referral No Information Medications Medication SIG (Take, Route, Frequency, Duration) Notes Start Date End Date Status Sertraline HCl 50 MG Tablet Oral; Duration: 60 Active amLODIPine Besylate 10 MG Tablet Oral; Duration: 30 Active metFORMIN HCl 500 MG Tablet Oral; Duration: 30 Active FLUoxetine HCl 20 MG Capsule Oral; Duration: 90 Active Atorvastatin Calcium 40 MG Tablet Oral; Duration: 30 Active hydroCHLOROthiazide 25 MG Tablet Oral; Duration: 90 Active Immunizations Vaccine Route Administration Date Status Comme nts Influenza Unknown 11/02/2022 Refused Social History Tobacco Use: Social History Observation Description Date Details (start date - stop date) Never Smoker NA - NA Social History Drugs/Alcohol: Social Info Question Answer Notes Alcohol Screen Did you have a drink containing alcohol in the past year? 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 Problems Problem Type SNOMED Code ICD Code Onset Dates Problem Status W/U Status Risk Notes Problem Colon cancer screening (465119934) Colon cancer screening (Z12.11) Active confirmed Problem Dysphagia (50658091) Dysphagia (R13.10) Active confirmed Problem Dysphagia (44052558) Dysphagia, unspecified type (R13.10) Active confirmed Plan Of Treatment Future Test Test Name Order Date UPPER GI ENDOSCOPY 11/02/2022 COLONOSCOPY 11/02/2022 Insurance Providers Payer Name Payer Address Payer Phone Subscriber Number Group Number Insured Name Patient Relationship to Insured Coverage Start Date Coverage End Date [facility] [address] [address] [place], [place] [id number] GENA TREVINO Self - patient is the insured Medical (General) History Medical History History ICD Code Diabetes mellitus type 2 Hypertension Depression Elevated cholesterol Surgical History Surgery Date(Month/Year) daniela removed 1987
== END 2025-04-23 10:28 | disposition home or self-care (01) ==
LOC: HO.HMCH 09:21
DX: I10 Essential (primary) hypertension (principal); G47.33 Obstructive sleep apnea (adult) (pediatric); F41.0 Panic disorder [episodic paroxysmal anxiety]; F41.9 Anxiety disorder, unspecified; R68.84 Jaw pain

== ENCOUNTER → 2025-04-23 09:20 | Outpatient (BNVA) | payer OTHER, SELFPAY | DX: I10 Essential (primary) hypertension (principal); G47.33 Obstructive sleep apnea (adult) (pediatric); F41.0 Panic disorder [episodic paroxysmal anxiety]; F41.9 Anxiety disorder, unspecified; R68.84 Jaw pain; Z13.31 Encounter for screening for depression; Z13.39 Encounter for screening examination for other mental health and behavioral disorders | CPT/HCPCS: 96127; 99212 ==

== ENCOUNTER 2025-05-10 14:42 | Outpatient (REF) | payer OTHER, SELFPAY ==
--- OUTSIDE RECORDS SUMMARY | 2025-05-10 22:16 | XMS_ITS | Patient Health Record ---
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 Problems Problem Type SNOMED Code ICD Code Onset Dates Problem Status W/U Status Risk Notes Problem Colon cancer screening (345858710) Colon cancer screening (Z12.11) Active confirmed Problem Dysphagia (29327996) Dysphagia (R13.10) Active confirmed Problem Dysphagia (00112462) Dysphagia, unspecified type (R13.10) Active confirmed Plan Of Treatment Future Test Test Name Order Date UPPER GI ENDOSCOPY 11/02/2022 COLONOSCOPY 11/02/2022 Insurance Providers Payer Name Payer Address Payer Phone Subscriber Number Group Number Insured Name Patient Relationship to Insured Coverage Start Date Coverage End Date [facility] [address] [address] [place], [place] [id number] GENA TREVINO Self - patient is the insured Medical (General) History Medical History History ICD Code Diabetes mellitus type 2 Hypertension Depression Elevated cholesterol Surgical History Surgery Date(Month/Year) daniela removed 1987
== END 2025-05-10 14:43 ==
LOC: HO.LAB 14:42
PROVIDERS: Visit Provider Internal Medicine Nephrology
DX: I10 Essential (primary) hypertension (principal)
CPT/HCPCS: 36415; 82384

== ENCOUNTER 2025-05-11 10:03 | Emergency (ER) | payer OTHER, SELFPAY ==
--- NOTE | ~2025-05-11 | CT_ITS ---
EXAMINATION: CT HEAD WITHOUT CONTRAST CLINICAL INFORMATION: Hypertension, dizziness. 54-year-old male. COMPARISON: None available. TECHNIQUE: Contiguous axial imaging was performed from the skull base to vertex without intravenous administration of contrast. This CT examination was performed using dose optimization techniques as appropriate, variously including the following: *Automated exposure control *Adjustment of mA and/or kV according to patient size (this includes techniques or standardized protocols for targeted exams where dose is matched to indication/reason for exam; i.e. extremities or head) *Use of iterative reconstruction technique FINDINGS: There is no evidence of intracranial hemorrhage or extra-axial fluid collection. There is no mass effect, or edema. No CT evidence of acute territorial infarct. Ventricles, sulci, and cisterns are normal in size and configuration for patient age. No hydrocephalus. No midline shift. Negative hyperdense MCA sign. Negative insular ribbon sign. Patchy periventricular and deep white matter hypoattenuation is consistent with mild small vessel ischemic changes. Normal pituitary. Mild atheromatous calcification of the bilateral carotid siphons. Globes and orbital contents image normally. No extracranial soft tissue abnormalities. The paranasal sinuses, mastoid air cells, and tympanic cavities are normally aerated. No suspicious bony abnormalities. There are no acute fractures evident. CT/CT head/brain wo IV con IMPRESSION: No acute intracranial abnormality. Electronically signed by: Yvan Garg MD 05/11/2025 12:06 PM JAYNE
[2025-05-11 10:13] VITALS: BP 170/98; BP 175/104; PULSE 65; PULSE 71; RESP 14; TEMP 36.6; O2SAT 96; O2SAT 99; BMI 31.0
[2025-05-11 10:16] VITALS: BP 175/104; PULSE 65; RESP 14; TEMP 36.6; O2SAT 96
--- NOTE | 2025-05-11 10:19 | ECG_ITS ---
Test Reason : dizziness Blood Pressure : */* mmHG Vent. Rate : 68 BPM Atrial Rate : 68 BPM P-R Int : 166 ms QRS Dur : 106 ms QT Int : 392 ms P-R-T Axes : 31 -24 -5 degrees QTcB Int : 416 ms Normal sinus rhythm Minimal voltage criteria for LVH, may be normal variant ( [place] product ) Possible Anterior infarct , age undetermined Abnormal ECG When compared with ECG of 19-Aug-2022 06:49, Inverted T waves have replaced nonspecific T wave abnormality in Inferior leads Referred By: Speedy Fuentes Electronically Signed By: RENNY BILLS MD
[2025-05-11 10:32] LABS: MANUAL DIFF FLAG NO
[2025-05-11 10:33] LABS: Hematocrit 41.3 % (42.0-52.0); Hemoglobin 14.7 g/dl (14.0-18.0); Imm Gran Abs Auto 0.01 X10*3/uL (0.00-0.03); Imm Gran Pct Auto 0.2 % (0.0-0.4); Lymphocytes Absolute Auto 1.4 X10*3/uL (1.2-4.9); Mean Corpuscular HGB Conc 35.6 g/dl (31.0-36.0); Mean Corpuscular Hemoglobin 29.3 pg (27.0-33.0); Mean Corpuscular Volume 82.4 fL (80.0-98.0); NRBC Abs Auto 0.000 X10*3/uL (0.0-0.012); NRBC Pct Auto 0.0 /100WBC (0.0-0.2); Platelet Count 153 X10*3/uL (160-400); Red Blood Count 5.01 X10*6/uL (4.60-5.80); White Blood Count 5.7 X10*3/uL (4.8-10.8)
--- NOTE | 2025-05-11 10:36 | ED_ITS ---
HPI - General Adult General Chief complaint: Dizziness Stated complaint: NAUSEA VOMITING DIZZINESS Time Seen by Provider: 05/11/25 10:17 Source: patient, EMS and RN notes reviewed Mode of arrival: EMS Limitations: no limitations History of Present Illness ED Provider: Olvin HPI narrative: Patient is a 54-year-old male with history of uncontrolled hypertension, T2 dm, asthma, obesity, depression presenting to the emergency department with complaint of sudden onset dizziness with associated nausea and vomiting this morning. States that he was sitting in the kitchen and suddenly became very dizzy, got up and vomited twice in the sink. He denies any blurred vision, double vision or other visual changes. He reports mild, dull headache to the top of his head. He denies any chest pain, palpitations, dyspnea. States that he saw his forensic psychiatrist yesterday who prescribed a new medication for his blood pressure but he has not picked it up or taken it yet. States that his blood pressures typically run in the 170s over 100s at home and they are having a very difficult time managing it with medication. He denies any diarrhea or current abdominal pain. Reports that his emesis was watery. States his vertigo has been intermittent since and can not correlate it with any triggers. Denies any weakness, numbness, tingling to extremities. Denies any ripping or tearing sensation to chest or abdomen. Denies neck pain or stiffness. Denies recent fevers. Denies any difficulty with speaking. Denies any recent chiropractic treatment. MD complaint: dizziness Related Data Home Medications ?Medication ?Instructions ?Recorded ?Confirmed blood sugar diagnostic #10 ea 05/07/20 04/06/25 doxazosin 2 mg tablet 2 mg PO DAILY 02/04/2404/06 metformin 500 mg tablet,extended 500 mg PO DAILY 04/0604/06/25 release 24 hr Previous Rx's ?Medication ?Instructions ?Recorded albuterol sulfate 90 mcg/actuation 2 puff PO Q4H PRN b ronchospasm 11/27/21 aerosol inhaler #8.5 grams lancets 28 gauge (FreeStyle #200 ea 02/04/24 Lancets) blood sugar diagnostic (FreeStyle #200 ea 03/03/24 Lite Strips) blood-glucose meter (FreeStyle #1 ea 03/03/24 Lite Meter kit) hydroxyzine HCl 50 mg tablet 50 mg PO BID PRN itching #60 tabs 02/12/25 pen needle, diabetic 32 gauge x #200 ea 02/12/25 valsartan 160 mg tablet 320 mg (2 x 160 mg) PO DAILY 90 02/21/25 days #180 tabs blood-glucose sensor (Dexcom G7 #3 ea 03/23/25 Sensor device) carvedilol 3.125 mg tablet 6.25 mg (2 x 3.125 mg) PO B ID 30 04/23/25 days #120 tabs fluoxetine 20 mg capsule 20 mg PO DAILY #30 caps 04/01 09/22 insulin glargine 100 unit/mL (3 10 unit (0.1 mL) subcu t QPM #15 mL 05/08/25 mL) subcutaneous pen (Lantus Solostar U-100 Insulin) hydrochlorothiazide 25 mg tablet 25 mg PO DAILY #30 ta bs 05/09/25 Allergies Allergy/AdvReac Type Severity Reaction Status Date / Time No Known Allergies Allergy Verified 05/11/25 10:14 Review of Systems 2 Review of Systems: As per HPI Yes all other systems are reviewed and are negative Constitutional: Constitutional: Reports as per HPI Neurologic: Denies Abnormal speech present [facility] Past Medical History Medical History Type 2 diabetes mellitus with hyperglycemia Type II diabetes mellitus with neurological manifestations Depression Hypertriglyceridemia Asthma Essential hypertension Hyperlipidemia LDL goal <100 Obesity (BMI 30-39.9) Type 2 diabetes mellitus without complications Surgical History History of removal of skin mole Family History Family History Father CHF (congestive heart failure) Afib Myocardial infarction CVD (cardiovascular disease) Discoid lupus Mother CAD (coronary artery disease) Social History Social History Household Members: Spouse and Children Housing: House Alcohol intake: never Patient Tobacco Use Status: Never used Tobacco Smoked in Last 30 Days: No e-Cigarette/Vaping Use: Never Used Second Hand Smoke Exposure: Yes Use of substances other than those prescribed or required for medical reasons: No Advance Directives: No Advance Directives Information Provided: Yes Do you have a plan to hurt others: No Plan service: No Current occupational status: employed and unemployed 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[employer] Cognitive needs: No Hearing needs: No Vision needs: No Physical Exam ED Vital Signs: Vital Signs - 24 hr 05/11/25 10:13 05/11/25 10:16 05/11/25 14:06 Temperature 97.8 F 97.8 F 97.8 F Pulse Rate 65 65 65 Respiratory Rate 14 14 14 Blood Pressure 175/104 H 175/104 H 175/104 H Pulse Oximetry 96 96 96 Oxygen Delivery Method Room Air Room Air Room Air BMI result Body Mass Index 31.0 Vital signs have been reviewed and appear to be correct. Blood pressure hypertensive. Heart rate normal. Respiratory rate normal. Temperature normal. Oxygen saturation normal. Const General: cooperative, healthy appearing and no acute distress Orientation/consciousness: oriented to person, oriented to place, oriented to time and patient oriented x3 Limitations: no limitations HENMT Head: Yes normocephalic and Yes atraumatic Ears: external ears normal General nose exam: Normal external nose present Face and sinus: Yes face symmetric Mouth: oropharynx normal and moist mucous membranes Throat: Yes uvula midline Eyes General: appearance normal, both eyes and all related structures Visual Valdez: normal visual valdez by confrontation Pupils: Equal, round and reactive pupils present EOM: EOMs intact bilaterally and No Nystagmus present Neck Neck: Yes normal visual inspection, Yes no meningeal signs and Yes supple Resp Effort & Inspection: normal respiratory effort and able to speak in complete sentences Auscultation: clear to auscultation bilaterally Cardio Rate: regular rate Rhythm: regular rhythm Heart sounds: S1 normal heart sound present and S2 normal heart sound present GI Palpation (GI): Soft to palpation and nontender Auscultation: normoactive bowel sounds General: Yes no CVA tenderness Back/Spine/Pelvis Back: no CVA tenderness Skin General skin exam: elasticity normal and turgor normal Neuro General: oriented to person, oriented to place, oriented to time, patient oriented x3, gait normal, tone normal, moves all extremities, Normal light touch and pain sensation, no meningeal signs, no focal motor deficits, CN's II-XI intact bilaterally and deep tendon reflexes 2+ bilaterally Cranial nerves: Yes CN's II-XII intact bilaterally, Yes Equal, round and reactive pupils present and No Nystagmus present Cognition (Neuro): normal cognition Speech: No Abnormal speech present Gait exam (Neuro): Normal gait present Motor exam (neuro): 5/5 motor strength present throughout, Normal motor muscle tone present throughout and Motor abnormalities not present Sensory Exam: Normal double simultaneous stimulation for sensation Coordination: [id number] test normal, [id number] test normal and Romberg test negative Extrem General: Yes full ROM, Yes no pedal edema and Yes no calf tenderness Psych Mental Status: mental status grossly normal Affect: normal affect Thought process: Normal thought process present NIH Stroke Scale Internal: Initial- Upon Arrival Time: 10:52 Level of Consciousness: Alert Level of Consciousness Questions: Answers both questions correctly Level of Consciousness Commands: Performs both tasks correctly Best Gaze: Normal Visual: No visual loss Facial Palsy: Normal Motor Arm (Right): No drift Motor Arm (Left): No drift Motor Leg (Right): No drift Motor Leg (Left): No drift Limb Ataxia: Absent Sensory: Normal Best Language: No aphasia Dysarthia: Normal Extinction and Inattention: No abnormality Score: 0 Medications Administered Discontinued Medications Generic Name Dose Route Start Last Admin Trade Name Freq PRN Reason Stop Dose Admin Ondansetron HCl 4 mg 05/11/25 10:59 05/11/25 11:23 Ondansetron Hcl 4 Mg/2 Ml Vial IVPUSH 05/11/25 11:00 4 mg ONCE ONE Administration Medical Decision Making Medical Decision Making [facility] Narrative: Patient is a 54-year-old male with history of uncontrolled hypertension, T2 dm, asthma, obesity, depression presenting to the emergency department with complaint of sudden onset dizziness with associated nausea and vomiting this morning. On exam patient is awake, A+Ox3, VS WNL, afebrile, normal neurological exam without focal deficits, physical exam findings as above. Given reported symptoms and physical exam findings, initial differential includes but is not limited to BPPV, vestibular neuritis, orthostatic hypotension, vestibular migraine, cardiac arrhythmia. Low suspicion for posterior circulation stroke given lack of focal neurological deficits. Patient stating his blood pressures in the ED are his baseline home readings. Labs notable for no leukocytosis, no anemia, negative troponin, no significant electrolyte abnormalities. EKG shows NSR with inverted T waves in inferior leads. Patient is without chest pain, dyspnea, palpitations. CT head notable for no evidence of ICH/mass effect. My interpretation is in agreement with the radiologist's interpretation. No orthostatic intolerance noted. Feel patient is stable for discharge home. Case discussed with attending, Dr. Brown, who is in agreement with this. Advised follow up with PCP this week. 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 Return precautions discussed. Patient verbalized understanding of and agreement with plan. Differential Diagnosis Differential Diagnoses: The differential diagnosis associated with the presentation includes as per [facility] Admission/Observation Consideration of admission/observation: Escalation of care including admission/observation considered Patient would have been admitted to the hospital and transferred to appropriate facility had their clinical presentation warranted hospital admission. Lab Data [facility] Lab Attestation statement: I reviewed the patient's lab results. as per [facility] 05/11/25 10:26 05/11/25 10:26 Labs: Lab Results 05/11/25 Range/Units 10:26 WBC 5.7 (4.8-10.8) X10*3/uL RBC 5.01 (4.60-5.80) X10*6/uL Hgb 14.7 (14.0-18.0) g/dl Hct 41.3 L (42.0-52.0) % MCV 82.4 (80.0-98.0) fL MCH 29.3 (27.0-33.0) pg MCHC 35.6 (31.0-36.0) g/dl RDW 12.4 (11.0-16.0) % Plt Count 153 L (160-400) X10*3/uL MPV 9.0 L (9.4-12.4) fL Immature Gran % (Auto) 0.2 (0.0-0.4) % Neut % (Auto) 66.5 (45-73) % Lymph % (Auto) 24.3 (20-40) % Monroe % (Auto) 6.9 (2-11) % Eos % (Auto) 1.2 (0-4) % Baso % (Auto) 0.9 (0-2) % Lymph # (Auto) 1.4 (1.2-4.9) X10*3/uL Monroe # (Auto) 0.4 (0.1-1.2) X10*3/uL Eos # (Auto) 0.1 (0.0-0.4) X10*3/uL Baso # (Auto) 0.1 (0.0-0.2) X10*3/uL Abs Immat Gran (auto) 0.01 (0.00-0.03) X10*3/uL Absolute Neuts (auto) 3.8 (2.0-8.3) x10*3/uL Absolute Nucleated RBC 0.000 (0.0-0.012) X10*3/uL Nucleated RBC % (auto) 0.0 (0.0-0.2) /100WBC Sodium 138 (135-145) mmol/L Potassium 4.1 (3.3-5.1) mmol/L Chloride 105 (96-108) mmol/L Carbon Dioxide 27 (22-29) mmol/L Anion Gap 10 L (12-20) BUN 24 H (9-16) mg/dL Creatinine 0.88 (0.5-1.4) mg/dL Estim Creat Clear Calc 104.7 Estimated GFR > 60 Random Glucose 168 H (60-115) mg/dL Calcium 9.3 (8.4-10.2) mg/dL Magnesium 2.0 (1.6-2.6) mg/dL Total Bilirubin 0.8 (0.0-1.0) mg/dL AST 19 (5-37) U/L ALT 22 (0-40) U/L Alkaline Phosphatase 46 (39-117) U/L Troponin I High Sens < 2.7 (<3.5-35.0) ng/L Total Protein 6.8 (6.5-8.0) g/dL Albumin 4.6 (3.5-5.0) g/dL Influenza Type A (PCR) NEGATIVE (Negative) Influenza Type B (PCR) NEGATIVE (Negative) RSV RNA Qual (PCR) NEGATIVE (Negative) SARS-CoV-2 RNA (RT-PCR) NEGATIVE (Negative) Independent Interpretation I performed an independent interpretation of an: EKG (normal sinus rhythm, rate 68bpm, normal MI interval and QTc, inverted T waves inferior leads) and CT Scan Interpretation: CT head without evidence of ICH/mass effect. Radiology Impression Discussion of test interpretation with radiology: I have reviewed the radiologist's reading. Radiologist Impression: CT/CT head/brain wo IV con IMPRESSION: No acute intracranial abnormality. External Record Review External record reviewed: Inpatient record, Office record and Outpatient record Discharge Plan Discharge Clinical Impression: Dizziness, Essential hypertension Patient Disposition: Home, Self-Care Instructions: Dizziness (ED) Additional Instructions: You were evaluated in the emergency department for an episode of dizziness with nausea and vomiting. Your evaluation including EKG, labs, and CT head was reassuring. 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 You should follow up with your primary care provider this week. Return to the emergency department if you develop additional episodes of dizziness, especially if it does not resolve after a few minutes, persistent vomiting, severe headache, vision changes, fainting, or any other new or concerning symptoms. Prescriptions: No Action albuterol sulfate 90 mcg/actuation HFA aerosol inhaler 2 puff PO Q4H PRN (Reason: bronchospasm) Qty: 8.5 0RF valsartan 160 mg tablet 320 mg PO DAILY 90 Days Qty: 180 3RF (DME) Dexcom G7 Sensor Device See Rx Instructions .ROUTE .COMPLEX Qty: 3 11RF Dose Instruction: APPLY NEW SENSOR EVERY 10 DAYS DIRECTED Rx Instructions: APPLY NEW SENSOR EVERY 10 DAYS DIRECTED insulin glargine [Lantus Solostar U-100 Insulin] 100 unit/mL (3 mL) insulin pen 10 unit subcut QPM Qty: 15 5RF hydrochlorothiazide 25 mg tablet 25 mg PO DAILY Qty: 30 0RF (DME) FreeStyle Precision Wilfrido Strips Strip See Rx Instructions .ROUTE .MEDSUPPLY Qty: 10 Rx Instructions: As directed (DME) FreeStyle Lite Strips Strip See Rx Instructions .ROUTE .MEDSUPPLY Qty: 200 5RF Rx Instructions: As directed to check glucose 5 times daily (DME) blood-glucose meter [FreeStyle Lite Meter] Kit See Rx Instructions .ROUTE .MEDSUPPLY Qty: 1 0RF Rx Instructions: Use as directed to check blood glucose up to 5 times daily hydroxyzine HCl 50 mg tablet 50 mg PO BID PRN (Reason: itching) Qty: 60 2RF (DME) pen needle, diabetic 32 gauge x 5/32 needle See Rx Instructions .ROUTE .MEDSUPPLY Qty: 200 5RF Rx Instructions: As directed carvedilol 3.125 mg tablet 6.25 mg PO BID 30 Days Qty: 120 1RF fluoxetine 20 mg capsule 20 mg PO DAILY Qty: 30 3RF doxazosin 2 mg tablet 2 mg PO DAILY (DME) lancets [FreeStyle Lancets] 28 gauge misc See Rx Instructions .ROUTE .MEDSUPPLY Qty: 200 5RF Rx Instructions: Use as directed to monitor glucose up to 5 times daily metformin 500 mg tablet extended release 24 hr 500 mg PO DAILY Print Language: Mexican
[2025-05-11 10:47] LABS: Alanine Aminotransferase 22 U/L (0-40); Albumin Level 4.6 g/dL (3.5-5.0); Alkaline Phosphatase 46 U/L (39-117); Anion Gap 10 (12-20); Aspartate Amino Transferase 19 U/L (5-37); Blood Urea Nitrogen 24 mg/dL (9-16); Calcium 9.3 mg/dL (8.4-10.2); Carbon Dioxide 27 mmol/L (22-29); Chloride 105 mmol/L (96-108); Creatinine Clr Calc Pharmacy 104.7; Estimated Glomerular Filt Rate > 60; Magnesium 2.0 mg/dL (1.6-2.6); Potassium 4.1 mmol/L (3.3-5.1); Sodium 138 mmol/L (135-145); Total Protein 6.8 g/dL (6.5-8.0)
[2025-05-11 10:56] LABS: Troponin-I High Sensitivity < 2.7 ng/L (<3.5-35.0)
[2025-05-11 11:16] LABS: Resp Syncy Virus RNA Qual PCR NEGATIVE (Negative); SARS COV2 PCR INHOUSE NEGATIVE (Negative)
[2025-05-11 14:06] VITALS: BP 175/104; PULSE 65; RESP 14; TEMP 36.6; O2SAT 96
--- NOTE | 2025-05-11 14:06 | PC.NURSE ---
BIBA from home. Patient experienced some dizziness then associated N/V. PMH HTN on new BP meds. Denies chest pain and SOB IV 20G RAC EKG = NSR Head CT = no acute findings
[2025-05-11 14:08] VITALS: BP 171/109; PULSE 72
[2025-05-11 14:09] VITALS: BP 179/108; PULSE 82
[2025-05-11 14:10] VITALS: BP 168/112; PULSE 92
[2025-05-11 14:56] LABS: Glucose, Whole Blood 97 mg/dL (60-115)
== END 2025-05-11 15:30 | disposition home or self-care (01) ==
PROVIDERS: Emergency Provider Emergency Medicine
DX: R42 Dizziness and giddiness (principal); I10 Essential (primary) hypertension; R29.700 NIHSS score 0; E11.9 Type 2 diabetes mellitus without complications; E78.5 Hyperlipidemia, unspecified; J45.909 Unspecified asthma, uncomplicated; Z03.818 Encounter for observation for suspected exposure to other biological agents ruled out
CPT/HCPCS: 36415; 70450; 80053; 82947; 83735; 84484; 85025; 87637; 93005; 96374; 99284; 99285; J2405

== ENCOUNTER → 2025-05-11 10:19 | Outpatient (BNV) | payer OTHER, SELFPAY | PROVIDERS: Emergency Provider Emergency Medicine; Visit Provider Internal Medicine Cardiovascular Disease | DX: R94.31 Abnormal electrocardiogram [ECG] [EKG] (principal); R42 Dizziness and giddiness | CPT/HCPCS: 93010 ==

== ENCOUNTER → 2025-05-11 10:46 | Outpatient (BNV) | payer OTHER, SELFPAY | PROVIDERS: Emergency Provider Emergency Medicine; Visit Provider Radiology Diagnostic Radiology | DX: R42 Dizziness and giddiness (principal); I10 Essential (primary) hypertension | CPT/HCPCS: 70450 ==

== ENCOUNTER 2025-05-14 11:11 | Outpatient (AMB) | payer OTHER, SELFPAY ==
--- NOTE | 2025-05-14 11:23 | MHC.PC.OV ---
Vital Signs 05/14/25 11:24 05/14/25 12:36 Height 5 ft 8 in Weight 204 lb 2 oz BMI 31.0 BP 210/96 H 202/104 H Blood Pressure Location Lt brachial Lt brachial Position Sitting Sitting Respiration 18 Pulse 67 Pulse Source Pulse Oximeter Temp Source Temporal Artery Scan Pulse Oximetry (%) 98 Oxygen Delivery Method Room Air Intake Visit Reasons: dm/htn/ anxiety Wood Room Hand Required: No Accompanied by: Self / Same As Patient Allergies No Known Allergies Allergy (Verified 05/14/25 12:06) Medication List - Last Reconciled 05/14/25 by BIA Blevins albuterol sulfate 90 mcg/actuation 2 puffs PO Q4H PRN blood sugar diagnostic As directed blood sugar diagnostic (FreeStyle Lite Strips) As directed to check glucose 5 times daily blood-glucose meter (FreeStyle Lite Meter kit) Use as directed to check blood glucose up to 5 times daily blood-glucose sensor (Social Moov G7 Sensor device) APPLY NEW SENSOR EVERY 10 DAYS DIRECTED carvedilol 6.25 mg (2 x 3.125 mg) PO BID 30 days doxazosin 2 mg PO DAILY fluoxetine 20 mg PO DAILY hydrochlorothiazide 25 mg PO DAILY hydroxyzine HCl 50 mg PO BID PRN insulin glargine (Lantus Solostar U-100 Insulin) 10 units (0.1 mL) subcut QPM lancets (FreeStyle Lancets) Use as directed to monitor glucose up to 5 times daily metformin ER 500 mg PO DAILY pen needle, diabetic As directed spironolactone 25 mg PO DAILY valsartan 320 mg (2 x 160 mg) PO DAILY 90 days Tobacco use date assessed: 05/14/25 Dental Screening Dental Screen Date: 05/14/25 Did you have a dental visit in the last 12 months?: No Did you have a dental problem in the last 6 months where you did not have access to dental care?: No Was dental information given to patient?: No HPI HPI Comments History of Present Illness Details The patient is a 54 year old male presenting with uncontrolled hypertension. He was recently seen by the renal team, who are considering renal denervation, a procedure that zaps nerves on the outside of renal arteries to decrease kidney response. The renal specialist prescribed spironolactone, but the patient has not yet picked it up from the pharmacy. The patient reports that his blood pressure is not responding to current medications, stating his body seems to be actively working against the medication. Recently, the patient went to the emergency room for dizziness and vomiting green, clear fluid, which was identified as bile. At the ER, tests for heart damage and stroke, including a brain scan, were negative. Lab work from the hospital visit showed normal kidney and liver function. Pending labs include tests for an adrenal gland growth, possibly related to norepinephrine levels. The patient also has a history of sleep apnea and requires a sleep study to determine CPAP machine settings. His current medications include valsartan and hydrochlorothiazide. 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 The patient reports new onset of elbow pain described as a burning sensation in the connective tissue around the joint, which is exacerbated by lifting objects. He denies numbness or tingling in his fingers. The pain may be related to muscular strain from lifting his daughter's wheelchair. Health Maintenance - A referral for a sleep study has been placed to evaluate for sleep apnea and determine CPAP settings. - Follow-up with the renal service is scheduled in one month to manage uncontrolled hypertension. - The patient has been considering renal denervation as a potential future treatment for his hypertension. 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 - The patient reports consuming tea and coffee. Results - A recent brain scan was negative for acute abnormalities. - Cardiac enzyme testing for heart damage was negative. - Recent lab work showed normal kidney and liver function. 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 - Lab tests to rule out an adrenal gland growth are pending. [facility] Medical History Type 2 diabetes mellitus with hyperglycemia Type II diabetes mellitus with neurological manifestations Depression Hypertriglyceridemia Asthma Essential hypertension Hyperlipidemia LDL goal <100 Obesity (BMI 30-39.9) Type 2 diabetes mellitus without complications Surgical History History of removal of skin mole Family History Father CHF (congestive heart failure) Afib Myocardial infarction CVD (cardiovascular disease) Discoid lupus Mother CAD (coronary artery disease) Social History Household Members: Spouse and Children Housing: House Alcohol intake: never Patient Tobacco Use Status: Never used Tobacco e-Cigarette/Vaping Use: Never Used Second Hand Smoke Exposure: Yes service: No Current occupational status: employed and unemployed 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 Depression Screening Interpretation: Positive Depression Screening Done: Yes Source: Developed by Drs. Tejas Almodovar, Marian Her, Tommy Valentine and colleagues, with an educational momo from [employer]. Thrive Questionnaire Date Thrive assessed: 05/14/25 I am a: Patient What is your living situation today?: I have a steady place to live Within the past 12 months, did the food you bought not last and you didn't have the money to get more?: Never true Within the past 12 months, did you worry whether your food would run out before you got money to buy more?: Never true Do you have trouble paying for medicines?: No Do you have trouble getting transportation to medical appointments?: No Do you have trouble paying your heating and electricity bill?: No Do you have trouble taking care of your child, family member or friend?: No Do you have trouble with day-to-day activities such as bathing, preparing meals, shopping, managing finances, etc.?: No Are you currently unemployed and looking for a job?: No Are you interested in more education?: Yes Please select the resources that you would like help with: Education Currently or been in a relationship where the following occur: No concerns reported THRIVE Score: 0 EUGENIA-7 AMB Questionnaire EUGENIA-7 Date EUGENIA - 7 assessed: 04/23/25 Source: Developed by Drs. Tejas Almodovar, Tommy Linares and colleagues, with an educational momo from [employer]. Review of Systems Narrative Review of Systems - General: Denies weakness. - Gastrointestinal: Reports recent episode of vomiting green, clear fluid (bile). - Musculoskeletal: Reports a burning pain in the elbow, muscle twinges with squeezing, and weakness when lifting with the affected arm. - Neurological: Reports a recent episode of dizziness. Denies numbness or tingling in the fingers. Const Denies headache(s) Eyes Denies loss of vision ENT Reports dental pain, Denies vertigo, Denies dizziness, Denies headache(s) and Denies sore throat Card Denies chest pain, Denies leg edema and Denies lightheadedness Resp Denies cough, Denies hemoptysis and Denies wheezing GI Denies abdominal pain, Denies melena, Denies constipation, Denies diarrhea and Denies vomiting Denies dysuria, Denies urinary frequency and Denies urinary urgency Musc Denies arthralgias, Denies joint swelling, Denies numbness and Denies tingling Neuro Denies Abnormal speech present, Denies behavioral changes, Denies vertigo, Denies dizziness, Denies headache(s), Denies loss of vision, Denies memory loss, Denies numbness and Denies tingling Psych Reports anxiety, Denies behavioral changes, Denies depression, Denies memory loss and Reports panic attacks Tej/Lymph Denies easy bleeding and Denies easy bruising Aller/Immun Denies wheezing Physical exam (Primary Care) Vital Signs: Last Vital Signs Pulse 67 05/14/25 11:24 Resp 18 05/14/25 11:24 BP 202/104 H 05/14/25 12:36 Pulse Ox 98 05/14/25 11:24 Oxygen Delivery Method Room Air 05/14/25 11:24 BMI result Body Mass Index 31.0 Tobacco/Smoking Status: Tobacco use Status Tobacco use date assessed 05/14/25 05/14/25 11:26 Patient Tobacco Use Status Never used Tobacco 05/14/25 11:26 e-Cigarette/Vaping Use Never Used 05/14/25 11:26 Depression Screening Interpretation: Positive Thrive Assessment: Date of Thrive Assessment Date Thrive assessed 05/14/25 05/14/25 11:26 Currently or been in a relationship where the following occur: No concerns reported Narrative Physical Exam - Constitutional: Blood pressure was rechecked during the visit. - Musculoskeletal: Hand grocery associate strength is equal bilaterally. On palpation of the elbow, tenderness was noted on either side where muscles connect. Const General: healthy appearing, no acute distress, alert and awake Nutritional Appearance: well nourished Orientation/consciousness: oriented to person, oriented to place and oriented to time HENMT Ears: TM's normal bilaterally General nose exam: Normal nasal mucous membranes and turbinates present Throat: Yes posterior oropharynx normal Eyes Conjunctivae: conjunctivae normal Sclerae: sclerae normal Pupils: Equal, round and reactive pupils present Neck Neck: Yes no lymphadenopathy and Yes no JVD Thyroid: Thyroid normal Carotids: no bruits Resp Effort & Inspection: normal respiratory effort and not tachypneic Auscultation: no crackles, no rales, no rhonchi and no wheezes Cardio Rate: regular rate Rhythm: regular rhythm Heart sounds: no murmurs and normal S1 and S2 GI Palpation (GI): Soft to palpation, nontender, no hepatomegaly and no splenomegaly Auscultation: normal bowel sounds General: Yes no CVA tenderness Back/Spine/Pelvis Back: no CVA tenderness Skin General skin exam: no rashes or lesions noted and dry skin Neuro General: oriented to person, oriented to place and oriented to time Cranial nerves: Yes Equal, round and reactive pupils present Speech: No Abnormal speech present Gait exam (Neuro): Normal gait present Motor exam (neuro): no tremor noted Extrem Right upper extremity: full ROM Left upper extremity: full ROM Right lower extremity: full ROM; no edema Left lower extremity: full ROM; no edema Psych Mental Status: mental status grossly normal Speech and movement: Normal speech and movement present Affect: normal affect Attitude: cooperative Thought process: Normal thought process present Coding Level of Care Code Est Pt Level 4 (70942) Diagnoses Uncontrolled hypertension I10 Muscle strain T14.8XXA Obstructive sleep apnea syndrome G47.33 Sleep apnea type: obstructive Time Spent (min) 34 Assessment & Plan Assessment & Plan (1) Uncontrolled hypertension: Code(s): I10 - Essential (primary) hypertension Category: Medical (2) Muscle strain: Code(s): T14.8XXA - Other injury of unspecified body region, initial encounter Category: Medical (3) Sleep apnea: Code(s): G47.30 - Sleep apnea, unspecified Category: Medical Qualifiers: Sleep apnea type: obstructive Qualified Code(s): G47.33 - Obstructive sleep apnea (adult) (pediatric) Plan Plan Patient was informed and verbally consented to the use of an ambient scribe for clinic note documentation during this visit. 1. Uncontrolled Hypertension The patient's uncontrolled hypertension is being co-managed with the renal service. He was instructed to start spironolactone as prescribed by his configuration consultant, as this is the necessary next step before considering further medication changes. The patient will continue his current regimen of valsartan 320 mg and hydrochlorothiazide. A follow-up appointment is scheduled in two weeks to assess the effect of the new medication and determine the next steps. The possibility of renal denervation remains a future consideration. 2. Elbow Pain The patient's elbow pain is thought to be muscular, possibly from strain or wear and tear related to lifting. Physical exam showed equal grocery associate strength, but elicited tenderness and twinges in the muscles around the elbow joint. Modified activity, may used warm compression and otc topical pain medication as needed. Will continue to monitor 3. Sleep Apnea Sleep apnea is considered a likely contributor to his resistant hypertension. The patient was strongly advised to call and schedule his sleep study, for which an order was previously placed. A home sleep study is recommended as the quicker option to initiate diagnosis and treatment, with the understanding that if results are severe, an on-site study can be expedited. Discussion Notes I discussed the seriousness of the patient's uncontrolled hypertension and emphasized the importance of starting the new medication, spironolactone, prescribed by the configuration consultant. We agreed that he must start the medication before any further adjustments can be made to his regimen. I also stressed the need to follow up on the sleep study referral, explaining that untreated sleep apnea is likely a major contributing factor to his high blood pressure. I explained that a home sleep study is a faster first step, and if it shows severe apnea, I can help expedite an on-site study. The patient will follow up with me in two weeks to assess his blood pressure response to spironolactone, and at that point we will make further decisions. I told the patient that his case is complex and requires my direct evaluation rather than a nurse visit for blood pressure checks. 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 - Continue taking your other blood pressure medications, valsartan and hydrochlorothiazide, as prescribed. - Call to schedule your sleep study to check for sleep apnea. This is very important for controlling your blood pressure. - Return for a follow-up appointment with the doctor in two weeks to check your blood pressure and review your treatment plan. - A follow-up with your kidney specialist is scheduled in one month. - Limit your intake of coffee and other stimulants as they can raise your blood pressure.
[2025-05-14 11:24] VITALS: BP 210/96; PULSE 67; RESP 18; O2SAT 98; BMI 31.0
[2025-05-14 12:36] VITALS: BP 202/104
== END 2025-05-14 12:34 | disposition home or self-care (01) ==
LOC: HO.HMCH 11:12
DX: I10 Essential (primary) hypertension (principal); T14.8XXA Other injury of unspecified body region, initial encounter; G47.33 Obstructive sleep apnea (adult) (pediatric)

== ENCOUNTER → 2025-05-14 11:11 | Outpatient (BNVA) | payer OTHER, SELFPAY | DX: I10 Essential (primary) hypertension (principal); S46.819A Strain of other muscles, fascia and tendons at shoulder and upper arm level, unspecified arm, initial encounter; G47.33 Obstructive sleep apnea (adult) (pediatric) | CPT/HCPCS: 99212 ==

== ENCOUNTER 2025-05-22 14:26 | Outpatient (AMB) | payer OTHER, SELFPAY ==
[2025-05-22 14:28] VITALS: BP 182/112; PULSE 78; RESP 18; O2SAT 99; BMI 30.6
--- NOTE | 2025-05-22 14:28 | A.OFFPC_ITS ---
Vital Signs 05/22/25 14:28 Height 5 ft 8 in Weight 201 lb BMI 30.6 BP 182/112 H Blood Pressure Location Lt brachial Position Sitting Respiration 18 Pulse 78 Pulse Source Pulse Oximeter Temp Source Temporal Artery Scan Pulse Oximetry (%) 99 Oxygen Delivery Method Room Air Intake Visit Reasons: 1 month f/u Cloth Pattern Maker Required: No Accompanied by: Self / Same As Patient Allergies No Known Allergies Allergy (Verified 05/24/25 01:41) Medication List - Last Reconciled 05/24/25 by BIA Blevins albuterol sulfate 90 mcg/actuation 2 puffs PO Q4H PRN atorvastatin (Lipitor) 20 mg PO BEDTIME blood sugar diagnostic As directed blood sugar diagnostic (FreeStyle Lite Strips) As directed to check glucose 5 times daily blood-glucose meter (FreeStyle Lite Meter kit) Use as directed to check blood glucose up to 5 times daily blood-glucose sensor (Seekly G7 Sensor device) APPLY NEW SENSOR EVERY 10 DAYS DIRECTED carvedilol 6.25 mg (2 x 3.125 mg) PO BID 30 days doxazosin (Cardura) 4 mg PO DAILY fluoxetine 20 mg PO DAILY hydrochlorothiazide 25 mg PO DAILY hydroxyzine HCl 50 mg PO BID PRN insulin glargine (Lantus Solostar U-100 Insulin) 10 units (0.1 mL) subcut QPM lancets (FreeStyle Lancets) Use as directed to monitor glucose up to 5 times daily metformin ER 500 mg PO DAILY pen needle, diabetic As directed spironolactone 25 mg PO DAILY valsartan 320 mg (2 x 160 mg) PO DAILY 90 days Tobacco use date assessed: 05/22/25 Dental Screening Dental Screen Date: 05/22/25 HPI HPI Comments History of Present Illness Details History of Present Illness The patient is a 55 year old male presenting for follow-up uncontrolled HTN, along with recent labs-to be reviewed. He has a history of hypertension that remains poorly controlled despite medication adherence. Current antihypertensive therapy includes spironolactone and another diuretic, as well as doxazosin. He reports nausea from spironolactone, which has improved from constant to intermittent. The patient denies adding salt to his food. 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 His cholesterol has also been a concern; prior labs have shown triglycerides as high as 653, which have since improved to 340, with a total cholesterol of 298 and LDL of 190. He was previously on atorvastatin but is not currently taking it for reasons he cannot recall. New symptoms include intermittent pulsatile tinnitus in left ear. He also has a known diagnosis of positional sleep apnea, which is currently unmanaged and considered a likely contributor to his hypertension. His renal function has been stable, and he denies chest pain or shortness of breath. Health Maintenance - Blood Glucose Management: The patient self-monitors his blood sugar, with a recent 30-day report indicating an estimated A1c of 6.3%, which is in the prediabetic range. - Diet: The patient reports avoiding leroy t and primarily drinks water. Social History - Nutritional Intake: The patient report s low salt intake and that his fluid intake consists mostly of water, with some coffee or tea, averaging about 6 glasses of water daily. - Functional Status: The patient reports being physically active, able to run up and down stairs without shortness of breath, carry groceries, and move around without issue. Results - Prior Lipid Panel: Results from a prev ious lab draw showed triglycerides 340 mg/dL (down from 653), total cholesterol 298 mg/dL, and LDL cholesterol 190 mg/dL. - Renal Function Panel: GFR and creatini ne are noted to be good, with no issues in kidney clearance. - Pending Labs: Renal-related labs order ed by Dr. Ordonez, including dopamine, are still pending. - Patient-Reported Glucose Monitoring: A 90-day average blood glucose of 126 mg/dL was reported from his monitoring device, with an estimated 30-day A1c of 6.3%. [facility] Medical History Type 2 diabetes mellitus with hyperglycemia Type II diabetes mellitus with neurological manifestations Depression Hypertriglyceridemia Asthma Essential hypertension Hyperlipidemia LDL goal <100 Obesity (BMI 30-39.9) Type 2 diabetes mellitus without complications Surgical History History of removal of skin mole Family History Father CHF (congestive heart failure) Afib Myocardial infarction CVD (cardiovascular disease) Discoid lupus Mother CAD (coronary artery disease) Social History Household Members: Spouse and Children Housing: House Alcohol intake: never Patient Tobacco Use Status: Never used Tobacco e-Cigarette/Vaping Use: Never Used Second Hand Smoke Exposure: Yes service: No Current occupational status: employed and unemployed 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[employer]ER Cognitive needs: No Hearing needs: No Vision needs: No Questionnaire Thrive Questionnaire Date Thrive assessed: 05/22/25 I am a: Patient What is your living situation today?: I have a steady place to live Within the past 12 months, did the food you bought not last and you didn't have the money to get more?: Never true Within the past 12 months, did you worry whether your food would run out before you got money to buy more?: Never true Do you have trouble paying for medicines?: No Do you have trouble getting transportation to medical appointments?: No Do you have trouble paying your heating and electricity bill?: No Do you have trouble taking care of your child, family member or friend?: No Do you have trouble with day-to-day activities such as bathing, preparing meals, shopping, managing finances, etc.?: No Are you currently unemployed and looking for a job?: No Are you interested in more education?: Yes Currently or been in a relationship where the following occur: No concerns reported THRIVE Score: 0 EUGENIA-7 AMB Questionnaire EUGENIA-7 Date EUGENIA - 7 assessed: 04/23/25 Source: Developed by Drs. Tejas Almodovar, Marian Her, Tommy Valentine and colleagues, with an educational momo from [employer]. Review of Systems Narrative Review of Systems - HEENT: Reports intermittent pulsatile tinnitus in one ear. - Cardiovascular: Denies shortness of breath and pedal edema. - Genitourinary: Denies urinary frequency or urgency despite taking diuretic medications. - Gastrointestinal: Reports intermittent nausea, which he attributes to his spironolactone medication. - Musculoskeletal: Reports knee pain which can limit his ability to use stairs. Const Reports fatigue and Denies headache(s) Eyes Denies loss of vision ENT Denies vertigo, Denies dizziness, Denies headache(s), Reports tinnitus (Pulsatile left ear) and Denies sore throat Card Denies chest pain, Denies leg edema and Denies lightheadedness Resp Denies cough, Denies hemoptysis and Denies wheezing GI Denies abdominal pain, Denies melena, Denies constipation, Denies diarrhea, Reports nausea (when started spironolactone, since seems to have resolved) and Denies vomiting Denies dysuria, Denies urinary frequency and Denies urinary urgency Musc Denies arthralgias, Denies joint swelling, Denies numbness and Denies tingling Neuro Denies Abnormal speech present, Denies behavioral changes, Denies vertigo, Denies dizziness, Denies headache(s), Denies loss of vision, Denies memory loss, Denies numbness and Denies tingling Psych Denies anxiety, Denies behavioral changes, Denies depression, Denies memory loss and Denies panic attacks Endo Reports fatigue Tej/Lymph Denies easy bleeding and Denies easy bruising Aller/Immun Denies wheezing Physical exam (Primary Care) Vital Signs: Last Vital Signs Pulse 78 05/22/25 14:28 Resp 18 05/22/25 14:28 BP 182/112 H 05/22/25 14:28 Pulse Ox 99 05/22/25 14:28 Oxygen Delivery Method Room Air 05/22/25 14:28 BMI result Body Mass Index 30.6 Tobacco/Smoking Status: Tobacco use Status Tobacco use date assessed 05/22/25 05/22/25 14:35 Patient Tobacco Use Status Never used Tobacco 05/22/25 14:35 e-Cigarette/Vaping Use Never Used 05/22/25 14:35 Thrive Assessment: Date of Thrive Assessment Date Thrive assessed 05/22/25 05/22/25 14:35 Currently or been in a relationship where the following occur: No concerns reported Narrative Physical Exam - Vital Signs: Blood pressure was rechecked. - Extremities: No peripheral edema observed. Const General: healthy appearing, no acute distress, alert and awake Nutritional Appearance: well nourished Orientation/consciousness: oriented to person, oriented to place and oriented to time HENMT Ears: TM's normal bilaterally General nose exam: Normal nasal mucous membranes and turbinates present Eyes Conjunctivae: conjunctivae normal Sclerae: sclerae normal Pupils: Equal, round and reactive pupils present Neck Neck: Yes no lymphadenopathy and Yes no JVD Thyroid: Thyroid normal Carotids: no bruits Resp Effort & Inspection: normal respiratory effort and not tachypneic Auscultation: no crackles, no rales, no rhonchi and no wheezes Cardio Rate: regular rate Rhythm: regular rhythm Heart sounds: no murmurs and normal S1 and S2 GI Palpation (GI): Soft to palpation, nontender, no hepatomegaly and no splenomegaly Auscultation: normal bowel sounds Skin General skin exam: no rashes or lesions noted and dry skin Neuro General: oriented to person, oriented to place and oriented to time Cranial nerves: Yes Equal, round and reactive pupils present Speech: No Abnormal speech present Gait exam (Neuro): Normal gait present Motor exam (neuro): no tremor noted Extrem Right upper extremity: full ROM Left upper extremity: full ROM Right lower extremity: full ROM; no edema Left lower extremity: full ROM; no edema Psych Mental Status: mental status grossly normal Speech and movement: Normal speech and movement present Affect: normal affect Attitude: cooperative Thought process: Normal thought process present Results Reviewed Results Reviewed: Laboratory Tests 02/22/25 09:27 Triglycerides 340 H Cholesterol 298 H LDL Cholesterol, Calc 190 H HDL Cholesterol 40 L Amylase 42 Lipase 29 Total PSA 1.34 25-OH Vitamin D Total 26.5 L TSH 1.90 Coding Level of Care Code Est Pt Level 4 (74815) Diagnoses Uncontrolled hypertension I10 Hyperlipidemia LDL goal <100 E78.5 Hypertriglyceridemia E78.1 Type 2 diabetes mellitus without complications E11.9 Pulsatile tinnitus H93.A9 Obstructive sleep apnea syndrome G47.33 Sleep apnea type: obstructive Time Spent (min) 37 Assessment & Plan Assessment & Plan (1) Uncontrolled hypertension: Code(s): I10 - Essential (primary) hypertension Category: Medical (2) Hyperlipidemia LDL goal <100: Code(s): E78.5 - Hyperlipidemia, unspecified Category: Medical (3) Hypertriglyceridemia: Code(s): E78.1 - Pure hyperglyceridemia Category: Medical (4) Type 2 diabetes mellitus without complications: Code(s): E11.9 - Type 2 diabetes mellitus without complications Category: Medical (5) Pulsatile tinnitus: Code(s): H93.A9 - Pulsatile tinnitus, unspecified ear Category: Medical (6) Sleep apnea: Code(s): G47.30 - Sleep apnea, unspecified Category: Medical Qualifiers: Sleep apnea type: obstructive Qualified Code(s): G47.33 - Obstructive sleep apnea (adult) (pediatric) Plan Plan Patient was informed and verbally consented to the use of an ambient scribe for clinic note documentation during this visit. 1. Hypertension The patient's hypertension remains elevated despite his current medication regimen. Uncontrolled obstructive sleep apnea is suspected to be a significant contributing factor. We will increase doxazosin to 4 mg daily. The patient was instructed to take two of his current 2 mg tablets daily until he can fill the new prescription. A follow-up visit is scheduled in 4 weeks to re-evaluate his blood pressure. 2. Hyperlipidemia The patient's recent labs show significant hyperlipidemia with an LDL of 190 and triglycerides of 340. He is not currently on a statin but has taken it in the past. We will restart atorvastatin at a moderate dose of 20 mg daily. A lipid panel will be rechecked in 3 months to assess for therapeutic response. 3. Pulsatile Tinnitus The patient reports a new, concerning symptom of intermittent pulsatile tinnitus. Given his significant hyperlipidemia, evaluation for carotid artery plaque is warranted. A bilateral carotid Doppler ultrasound will be ordered. Management will depend on the results; mild findings would be treated by lowering cholesterol, whereas significant findings would warrant a vascular referral. 4. Prediabetes The patient's self-reported glucose monitoring shows results consistent with prediabetes, including an estimated A1c of 6.3%. The patient is aware of this and motivated to improve his glycemic control. Will continue to encourage lifestyle modifications and will obtain formal lab testing, including cholesterol levels, in 3 months. 5. Obstructive Sleep Apnea The patient has a known history of uncontrolled positional sleep apnea, which is believed to be a major contributor to his resistant hypertension. Previously, the only recommendation was to change sleep position, and there has been no f urther management. No new plan was initiated for this condition during the current visit, though its importance was acknowledged. Discussion Notes I discussed with the patient that his blood pressure continues to be a challenge, and we acknowledged that his unmanaged sleep apnea is a likely contributor. We agreed to increase his doxazosin dose to 4 mg daily. We also reviewed his significantly elevated cholesterol and triglyceride levels. I recommended restarting atorvastatin, starting at 20 mg, and explained that we would recheck his labs in three months to monitor the effect. Regarding his new symptom of pulsatile tinnitus, I explained the need for a bilateral carotid Doppler ultrasound to evaluate for arterial plaque, especially given his high cholesterol. I informed him that if the results are significant, a referral to a vascular specialist would be necessary. We discussed his nausea with spironolactone and that taking it at night is an acceptable alternative. We will have a follow-up appointment in 4 weeks to check his blood pressure and a subsequent visit in 3 months with labs to review his cholesterol. Patient Instructions - Start taking atorvastatin 20 mg once daily for your high cholesterol. - Increase your doxazosin dose. Until your new prescription for 4 mg is ready, take two of your current 2 mg tablets at one time. - If the spironolactone continues to cause you nausea, you may try taking it at nighttime to see if that helps. - Please proceed with getting the neck ultrasound (bilateral carotid Doppler) that was ordered. - Please try to increase your daily water intake. - Schedule a follow-up appointment in 4 weeks to check your blood pressure. - You will need to get blood work done in about 3 months, before your follow-up appointment to check your cholesterol. Orders: Orders Complete Blood Count Auto Diff 3 Months E11.9 - Type 2 diabetes mellitus without complications, E66.9 - Obesity, unspecified, E78.1 - Pure hyperglyceridemia, E78.5 - Hyperlipidemia, unspecified, F41.0 - Panic disorder [episodic paroxysmal anxiety], I10 - Essential (primary) hypertension UA CC w/rflx Micro + Cult 3 Months E11.9 - Type 2 diabetes mellitus without complications, E66.9 - Obesity, unspecified, E78.1 - Pure hyperglyceridemia, E78.5 - Hyperlipidemia, unspecified, F41.0 - Panic disorder [episodic paroxysmal anxiety], I10 - Essential (primary) hypertension Hemoglobin A1c 3 Months E11.9 - Type 2 diabetes mellitus without complications, E66.9 - Obesity, unspecified, E78.1 - Pure hyperglyceridemia, E78.5 - Hyperlipidemia, unspecified, F41.0 - Panic disorder [episodic paroxysmal anxiety], I10 - Essential (primary) hypertension Comprehensive [place]. Panel Fast 3 Months E11.9 - Type 2 diabetes mellitus without complications, E66.9 - Obesity, unspecified, E78.1 - Pure h yperglyceridemia, E78.5 - Hyperlipidemia, unspecified, F41.0 - Panic disorder [episodic paroxysmal anxiety], I10 - Essential (primary) hypertension Lipid Panel 3 Months E11.9 - Type 2 diabetes mellitus without complications, E66.9 - Obesity, unspecified, E78.1 - Pure hyperglyceridemia, E78.5 - Hyperlipidemia, unspecified, F41.0 - Panic disorder [episodic paroxysmal anxie ty], I10 - Essential (primary) hypertension TSH reflex Free T4 3 Months E11.9 - Type 2 diabetes mellitus without complications, E66.9 - Obesity, unspecified, E78.1 - Pure hyperglyceridemia, E78.5 - Hyperlipidemia, unspecified, F41.0 - Panic disorder [episodic paroxysmal anxiety], I10 - Essential (primary) hypertension Vitamin D 25-OH Total 3 Months E11.9 - Type 2 diabetes mellitus without complications, E66.9 - Obesity, unspecified, E78.1 - Pure hyperglyceridemia, E78.5 - Hyperlipidemia, unspecified, F41.0 - Panic disorder [episodic paroxysmal anxiety], I10 - Essential (primary) hypertension carotid duplex BI 05/22/25 H93.A9 - Pulsatile tinnitus, unspecified ear Medications: New atorvastatin (Lipitor) 20 mg PO BEDTIME 90 tabs 3RF doxazosin (Cardura) 4 mg PO BEDTIME 30 tabs 1RF doxazosin (Cardura) 4 mg PO DAILY 30 tabs 1RF
--- OUTSIDE RECORDS SUMMARY | 2025-05-22 15:43 | XMS_ITS | Clinical Summary ---
Author Organization [facility] Address [address] [address] Phone Care Team Providers Care Coal Bagger Name Role Phone Cesia Shirley PA-C Primary Care Provider [phone] Allergies No known active allergies Medications valACYclovir [...] 1 kit 1 (one) time each day 9 Active metFORMIN (GLUCOPHAGE) 1000 MG tablet Take 1,000 mg by mouth in the morning and 1,000 mg in the evening. Take with meals. 1 Active Continuous Blood Gluc Sensor (FreeStyle Jessica 14 Day Sensor) [facility] USE DIRECTED EVERY 2 WEEKS 1 Active valsartan (DIOVAN) 160 MG tablet Take 2 tablets (320 mg total) by mouth 1 (one) time each day 180 tablet 1 4 Active doxazosin (CARDURA) 2 MG tablet TAKE 1 TABLET BY MOUTH EVERY NIGHT. 90 tablet 3 5 Active LORazepam (ATIVAN) 1 MG tablet Take 1 mg by mouth every 6 (six) hours if needed for anxiety Active carvedilol (COREG) 3.125 MG tablet Take 6.25 mg by mouth in the morning and 6.25 mg in the evening. Take with meals. 5 Active FLUoxetine (PROzac) 20 MG capsule take 1 capsule (20 mg) by mouth daily Active hydrOXYzine (ATARAX) 50 MG tablet Take 50 mg by mouth every 4 (four) hours if needed 5 Active spironolactone (Aldactone) 25 MG tablet Take 1 tablet (25 mg total) by mouth 1 (one) time each day 30 tablet 11 5 05/10/20 26 Active valsartan (DIOVAN) 160 MG tablet Take 1 tablet (160 mg total) by mouth 1 (one) time each day 90 tablet 3 5 05/10/20 25 Discontinu ed(Alterna te therapy) Active Problems Problem Noted Date Diagnosed Date Dysphagia 01/03/2025 Essential hypertension 02/18/2021 Benign essential hypertension 02/12/2021 Encounters Date Type Department Care Team Description 05/10/2025 2:00 PM EST Office Visit [facility] [address] [place] [address] Bobby Ordonez MD Essential hypertension (Primary Dx) from Last 3 Months Family History Medical History Relation Comments Heart [...] Sign Reading Time Taken Comments Blood Pressure 170/100 05/10/2025 2:09 PM EST Pulse 90 05/10/2025 2:09 PM EST Temperature - - Respiratory Rate - - Oxygen Saturation 97% 05/10/2025 2:09 PM EST Inhaled Oxygen Concentration - - Weight 92.7 kg (204 lb 6.4 oz) 05/10/2025 2:09 P M EST Height 172.7 cm (5' 8 ) 08/08/2018 12:00 PM EDT Body Mass Index 31.08 08/08/2018 12:00 PM EDT Plan of Treatment Upcoming Encounters Date Type Department Care Team (Late st Contact Info) Description 05/28/2025 2:15 PM EST Office Visit [facility] [address] [place] [address] Bobby Ordonez MD [address] [address] [place] [address] Health Maintenance Due Date Last Done Comments Hepatitis B Vaccine (1 of 3 - 19+ 3-dose series) 1988 Pneumococcal Vaccine: 50+ Ye ars (1 of 2 - PCV) 1988 Colorectal Cancer Screening: Annual FOBT 2018 Colorectal Cancer Screening: Colonoscopy 2018 Colorectal Cancer Screening: Sigmoidoscopy 2018 Influenza Vaccine (#1) 2025 , 04/18/2020, 06/16/2017, Additional history exists Diabetes: Hemoglobin A1C 05/10/2025 Diabetes: Ophthalmology Exam 05/10/2025 Diabetes: Pedal Pulse Checked 05/10/2025 Diabetes: Sensory Foot Exam 05/10/2025 Diabetes: Visual Foot Exam 05/10/2025 Insurance [facility] Medicaid [facility] Medicaid Care Teams Coal Bagger Relationship Specialty Start Date End Date Cesia Shirley PA-C [address] [place] [id number] PCP - General Internal Medicine 04/09/25
--- OUTSIDE RECORDS SUMMARY | 2025-05-22 15:43 | XMS_ITS | Patient Health Record ---
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 Problems Problem Type SNOMED Code ICD Code Onset Dates Problem Status W/U Status Risk Notes Problem Colon cancer screening (138468301) Colon cancer screening (Z12.11) Active confirmed Problem Dysphagia (46881070) Dysphagia (R13.10) Active confirmed Problem Dysphagia (93189766) Dysphagia, unspecified type (R13.10) Active confirmed Plan Of Treatment Future Test Test Name Order Date UPPER GI ENDOSCOPY 11/02/2022 COLONOSCOPY 11/02/2022 Insurance Providers Payer Name Payer Address Payer Phone Subscriber Number Group Number Insured Name Patient Relationship to Insured Coverage Start Date Coverage End Date [facility] [address] [address] [place], [place] [id number] GENA TREVINO Self - patient is the insured Medical (General) History Medical History History ICD Code Diabetes mellitus type 2 Hypertension Depression Elevated cholesterol Surgical History Surgery Date(Month/Year) daniela removed 1987
--- OUTSIDE RECORDS SUMMARY | 2025-05-22 15:43 | XMS_ITS | Encounter Summary ---
Author Organization [facility] Address [address] [facility] [address] [place] [address] Phone Care Team Providers Care Personnel Security Assistant Name Role Phone Casper Cesia MORA Primary Care Provider [phone] Reason for Visit * Reason Comments Med Refill Encounter Details Date Type Department Care Team (Late Contact Info) Description 12/18/2020 [facility] [address] [place] [address] Bobby Ordonez MD [address] [facility] [address] [place] [address] Social History Tobacco Use Types [...] Department Care Team (Late Contact Info) Description 05/28/2025 2:15 PM EST Office Visit [facility] [address] [place] [address] [place] [address] Bobby Ordonez MD [address] [facility] [address] [place] [address] documented as of this encounter Visit Diagnoses Not on filedocumented in this encounter Care Teams Personnel Security Assistant Relationship Specialty Start Date End Date Cesia Shirley PA-C [address] [place] [id number] PCP - General Internal Medicine 04/09/25 documented as of this encounter
== END 2025-05-22 15:33 | disposition home or self-care (01) ==
LOC: HO.HMCH 14:27
DX: I10 Essential (primary) hypertension (principal); E78.5 Hyperlipidemia, unspecified; E78.1 Pure hyperglyceridemia; E11.9 Type 2 diabetes mellitus without complications; H93.A9 Pulsatile tinnitus, unspecified ear; G47.33 Obstructive sleep apnea (adult) (pediatric)

== ENCOUNTER → 2025-05-22 14:26 | Outpatient (BNVA) | payer OTHER, SELFPAY | DX: I10 Essential (primary) hypertension (principal); E78.5 Hyperlipidemia, unspecified; E78.1 Pure hyperglyceridemia; E11.9 Type 2 diabetes mellitus without complications; H93.A2 Pulsatile tinnitus, left ear; G47.33 Obstructive sleep apnea (adult) (pediatric) | CPT/HCPCS: 99212 ==

== ENCOUNTER 2025-05-28 14:35 | Outpatient (AMB) | payer OTHER, SELFPAY ==
--- NOTE | 2025-05-28 14:56 | MHC.PC.OV ---
Vital Signs 05/28/25 15:04 Height 5 ft 8 in Weight 199 lb 4 oz BMI 30.3 BP 140/70 H Blood Pressure Location Lt brachial Position Sitting Pulse 92 Pulse Source Pulse Oximeter Temp 97.1 F Temp Source Temporal Artery Scan Pulse Oximetry (%) 98 Oxygen Delivery Method Room Air Intake Visit Reasons: 2 week follow up Swinging Cut Off Saw Operator Required: No Connection Worker: Not Required per policy Accompanied by: Self / Same As Patient Allergies No Known Allergies Allergy (Verified 05/29/25 12:40) Medication List - Last Reconciled 05/29/25 by BIA Blevins albuterol sulfate 90 mcg/actuation 2 puffs PO Q4H PRN atorvastatin (Lipitor) 20 mg PO BEDTIME blood sugar diagnostic As directed blood sugar diagnostic (FreeStyle Lite Strips) As directed to check glucose 5 times daily blood-glucose meter (FreeStyle Lite Meter kit) Use as directed to check blood glucose up to 5 times daily blood-glucose sensor (Sopogy G7 Sensor device) APPLY NEW SENSOR EVERY 10 DAYS DIRECTED carvedilol 6.25 mg (2 x 3.125 mg) PO BID 30 days doxazosin (Cardura) 4 mg PO DAILY fluoxetine 20 mg PO DAILY hydrochlorothiazide 25 mg PO DAILY hydroxyzine HCl 50 mg PO BID PRN insulin glargine (Lantus Solostar U-100 Insulin) 10 units (0.1 mL) subcut QPM lancets (FreeStyle Lancets) Use as directed to monitor glucose up to 5 times daily metformin ER 500 mg PO DAILY pen needle, diabetic As directed spironolactone 25 mg PO DAILY valsartan 320 mg (2 x 160 mg) PO DAILY 90 days Tobacco use date assessed: 05/22/25 Dental Screening Dental Screen Date: 05/22/25 HPI HPI Comments History of Present Illness Details The patient is a 55 year old male presenting with management of resistant hypertension. He has a history of hypertension that has been unresponsive to multiple medications, with doxazosin being the only agent to have a significant effect. Initially, the combination of doxazosin and valsartan lowered his blood pressure to 90/60 mmHg, which prompted his valsartan dose to be halved. Over time, his blood pressure began to rise again significantly, prompting an increase of his doxazosin from 2 mg to 4 mg. The 4 mg dose caused his blood pressure to drop significantly to as low as 102/86 mmHg, but also caused dizziness. Due to the side effects, the patient has self-adjusted his dose to 3 mg at times. The patient has a history of type 2 diabetes and notes that carvedilol, prescribed by his diabetes doctor, and spironolactone were ineffective for his blood pressure. He experienced nausea while taking spironolactone. Previous tests for pheochromocytoma were negative in the past, even though, this is a present concern. The patient's family history is significant for a sister who has labile blood pressure and is prediabetic. He also has a pending sleep study. Health Maintenance - A referral for a sleep study is pending. Social History Results - Labs: - Potassium: 4.1 mEq/L. - Sodium: Normal. [facility] Medical History Type 2 diabetes mellitus with hyperglycemia Type II diabetes mellitus with neurological manifestations Depression Hypertriglyceridemia Asthma Essential hypertension Hyperlipidemia LDL goal <100 Obesity (BMI 30-39.9) Type 2 diabetes mellitus without complications Surgical History History of removal of skin mole Family History Father CHF (congestive heart failure) Afib Myocardial infarction CVD (cardiovascular disease) Discoid lupus Mother CAD (coronary artery disease) Social History Household Members: Spouse and Children Housing: House Alcohol intake: never Patient Tobacco Use Status: Never used Tobacco e-Cigarette/Vaping Use: Never Used Second Hand Smoke Exposure: Yes service: No Current occupational status: employed and unemployed 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 Cognitive needs: No Hearing needs: No Vision needs: No Questionnaire Thrive Questionnaire Date Thrive assessed: 02/12/25 I am a: Patient What is your living situation today?: I have a steady place to live Within the past 12 months, did the food you bought not last and you didn't have the money to get more?: Never true Within the past 12 months, did you worry whether your food would run out before you got money to buy more?: Never true Do you have trouble paying for medicines?: No Do you have trouble getting transportation to medical appointments?: No Do you have trouble paying your heating and electricity bill?: No Do you have trouble taking care of your child, family member or friend?: No Do you have trouble with day-to-day activities such as bathing, preparing meals, shopping, managing finances, etc.?: No Are you currently unemployed and looking for a job?: No Are you interested in more education?: Yes Currently or been in a relationship where the following occur: No concerns reported THRIVE Score: 0 EUGENIA-7 AMB Questionnaire EUGENIA-7 Date EUGENIA - 7 assessed: 04/23/25 Source: Developed by Drs. Tejas Almodovar, Marian Her, Tommy Valentine and colleagues, with an educational momo from [employer]. Review of Systems Const Denies body aches, Denies chills, Denies fever(s), Denies headache(s) and Denies poor appetite Eyes Reports no additional complaints ENT Denies dysphagia, Reports dizziness (on and off), Denies headache(s) and Denies odynophagia Card Denies chest pain, Denies syncope, Denies edema, Denies irregular heart rhythm, Denies lightheadedness and Denies dyspnea Resp Denies cough and Denies dyspnea GI Denies abdominal pain, Denies constipation, Denies dysphagia, Denies diarrhea, Denies nausea, Denies odynophagia and Denies vomiting Reports no additional complaints Musc Reports no additional complaints and Denies abnormal gait Skin/Breast Reports system reviewed and no additional complaints, except as documented Neuro Denies abnormal gait, Reports dizziness (on and off), Denies syncope and Denies headache(s) Psych Reports no additional complaints Physical exam (Primary Care) Vital Signs: Last Vital Signs Temp 97.1 F 05/28/25 15:04 Pulse 92 05/28/25 15:04 BP 140/70 H 05/28/25 15:04 Pulse Ox 98 05/28/25 15:04 Oxygen Delivery Method Room Air 05/28/25 15:04 BMI result Body Mass Index 30.3 Tobacco/Smoking Status: Tobacco use Status Tobacco use date assessed 05/22/25 05/28/25 15:11 Patient Tobacco Use Status Never used Tobacco 05/28/25 15:11 e-Cigarette/Vaping Use Never Used 05/28/25 15:11 Thrive Assessment: Date of Thrive Assessment Date Thrive assessed 02/12/25 05/28/25 15:11 Currently or been in a relationship where the following occur: No concerns reported Narrative Physical Exam - Vitals: Heart rate 92 bpm. Const General: cooperative, healthy appearing, comfortable and no acute distress Orientation/consciousness: patient oriented x3 HENMT Head: Yes normocephalic Ears: hearing grossly normal bilaterally General nose exam: Normal external nose present Eyes General: appearance normal, both eyes and all related structures Conjunctivae: conjunctivae normal Neck Neck: Yes full ROM and Yes no lymphadenopathy Resp Effort & Inspection: normal respiratory effort Auscultation: clear to auscultation bilaterally, no crackles, no rales, no rhonchi and no wheezes Cardio Rate: regular rate Rhythm: regular rhythm Skin General skin exam: no rashes or lesions noted Neuro General: patient oriented x3 Gait exam (Neuro): Normal gait present Extrem General: Yes normal to inspection, Yes full ROM and No edema Psych Affect: normal affect Attitude: cooperative Insight: Good insight present (Psych) Judgement: Good judgement present (Psych) Results Reviewed Results Reviewed: Laboratory Tests 05/10/25 05/11/25 05/11/25 15:06 10:26 14:45 WBC 5.7 RBC 5.01 Hgb 14.7 Hct 41.3 L MCV 82.4 MCH 29.3 MCHC 35.6 RDW 12.4 Plt Count 153 L Sodium 138 Potassium 4.1 Chloride 105 Carbon Dioxide 27 Anion Gap 10 L BUN 24 H Creatinine 0.88 Estim Creat Clear Calc 104.7 Estimated GFR > 60 POC Glucose 97 Calcium 9.3 Magnesium 2.0 Total Bilirubin 0.8 AST 19 ALT 22 Alkaline Phosphatase 46 Troponin I High Sens < 2.7 Total Protein 6.8 Albumin 4.6 Plas Tot Catecholamine 742 Dopamine 27 H Epinephrine 104 H Norepinephrine 645 Coding Level of Care Code Est Pt Level 3 (89485) Diagnoses Uncontrolled hypertension I10 Type 2 diabetes mellitus without complications E11.9 Time Spent (min) 29 Assessment & Plan Assessment & Plan (1) Uncontrolled hypertension: Code(s): I10 - Essential (primary) hypertension Category: Medical (2) Type 2 diabetes mellitus without complications: Code(s): E11.9 - Type 2 diabetes mellitus without complications Category: Medical Plan Plan Patient was informed and verbally consented to the use of an ambient scribe for clinic note documentation during this visit. 1. Resistant Hypertension The patient's resistant hypertension has shown a significant response to the alpha-malorie doxazosin, particularly after a dose increase from 2 to 4 mg, which strongly suggests a secondary cause such as a pheochromocytoma. A previously considered renal denervation procedure by associate professor of surgery, the patient is wondering if he still needs this procedure. Encouraged the patient to follow up with nephrology to make this decision. Will contact the patient's specialist (Dr. Ordonez) to discuss the findings and coordinate care, which may include ordering a CT scan of the adrenal glands. The patient will be maintained on doxazosin, with the goal of continuing 4 mg, but he may reduce the dose to 3 mg if he experiences significant dizziness or his blood pressure drops too low. A follow-up appointment is scheduled in one month. Patient Instructions - Continue taking your blood pressure medications as prescribed. - Try to take the 4 mg dose of doxazosin. - If you feel too dizzy, you can reduce the doxazosin dose to 3 mg by breaking a tablet in half. - I will contact your specialist, Dr. Ordonez, to discuss your case and will let you know about any new plans. - Please make a follow-up appointment to see me in one month. - Remember to call and schedule your sleep study. Orders: Orders Metanephrines, Plasma 05/28/25 I10 - Essential (primary) hypertension
[2025-05-28 15:04] VITALS: BP 140/70; PULSE 92; TEMP 36.2; O2SAT 98; BMI 30.3
--- OUTSIDE RECORDS SUMMARY | 2025-05-28 16:56 | XMS_ITS | Encounter Summary ---
Author Organization [facility] Address [address] [facility] [address] [facility] [address] [place] [address] Phone Care Team Providers Care Jute Bag Cutting Machine Operator Name Role Phone Casper Cesia MORA Primary Care Provider [phone] Reason for Visit * Reason Comments Med Refill Encounter Details Date Type Department Care Team (Late Contact Info) Description 12/18/2020 Refill [facility] [address] [facility] [address] [place] [address] Bobby Ordonez MD [address] [facility] [address] [place] [address] Social History Tobacco Use Types [...] Department Care Team (Late Contact Info) Description 09/03/2025 2:30 PM EDT Office Visit [facility] [address] [place] [address] Bobby Ordonez MD [address] [facility] [address] [place] [address] documented as of this encounter Visit Diagnoses Not on filedocumented in this encounter Care Teams Jute Bag Cutting Machine Operator Relationship Specialty Start Date End Date Cesia Shirley PA-C [address] [place] [id number] PCP - General Internal Medicine 04/09/25 documented as of this encounter
--- OUTSIDE RECORDS SUMMARY | 2025-05-28 16:56 | XMS_ITS | Patient Health Record ---
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 Problems Problem Type SNOMED Code ICD Code Onset Dates Problem Status W/U Status Risk Notes Problem Colon cancer screening (265763347) Colon cancer screening (Z12.11) Active confirmed Problem Dysphagia (02153988) Dysphagia (R13.10) Active confirmed Problem Dysphagia (84846482) Dysphagia, unspecified type (R13.10) Active confirmed Plan Of Treatment Future Test Test Name Order Date UPPER GI ENDOSCOPY 11/02/2022 COLONOSCOPY 11/02/2022 Insurance Providers Payer Name Payer Address Payer Phone Subscriber Number Group Number Insured Name Patient Relationship to Insured Coverage Start Date Coverage End Date [facility] [address] [address] [place], [place] [id number] GENA TREVINO Self - patient is the insured Medical (General) History Medical History History ICD Code Diabetes mellitus type 2 Hypertension Depression Elevated cholesterol Surgical History Surgery Date(Month/Year) daniela removed 1987
--- OUTSIDE RECORDS SUMMARY | 2025-05-28 16:56 | XMS_ITS | Clinical Summary ---
Author Organization [facility] Address [address] [address] Phone Care Team Providers Care Iron Miner Blasting Name Role Phone Cesia Shirley PA-C Primary Care Provider [phone] Allergies No known active allergies Medications valACYclovir [...] Sensor (FreeStyle Jessica 14 Day Sensor) [facility] USE DIRECTED EVERY 2 WEEKS 1 Active [...] Active Problems Problem Noted Date Diagnosed Date Diabetes mellitus without me ntion of complication, type II or unspecified type, not stated as uncontrolled 05/28/2025 Dysphagia 01/03/2025 Essential hypertension 02/18/2021 Benign essential hypertension 02/12/2021 Encounters Date Type Department Care Team Description 05/10/2025 2:00 PM EST Office Visit [facility] [address] [place] [address] Bobby Ordonez MD Essential hypertension (Primary Dx) from Last 3 Months Immunizations Immunization Administration Dates Next Due Influenza Split 04/28/2012 Influenza, Quadrivalent, Preservative Free 03/26,04/18/2020,06/16/2017 Influenza, Quadrivalent, With Preservative 03/06 Pfizer SARS-COV-2 04/22/2021,07/20/2020,06/29/19 21 Tdap 03/16/2014 Family History Medical History Relation Comments Heart [...] Care Team (Late st Contact Info) Description 09/03/2025 2:30 PM EDT Office Visit [facility] [address] [facility] [address] Bobby Ordonez MD [address] [facility] [address] [place] [address] Health Maintenance Due Date Last Done Comments Hepatitis B Vaccine (1 of 3 - 19+ 3-dose series) 1988 Pneumococcal Vaccine: 50+ Ye ars (1 of 2 - PCV) 1988 Colorectal Cancer Screening: Annual FOBT 2018 Colorectal Cancer Screening: Colonoscopy 2018 Colorectal Cancer Screening: Sigmoidoscopy 2018 Influenza Vaccine (#1) 2025 , 04/18/2020, 06/16/2017, Additional history exists Diabetes: Ophthalmology Exam 05/10/2025 Diabetes: Pedal Pulse Checked 05/10/2025 Diabetes: Sensory Foot Exam 05/10/2025 Diabetes: Visual Foot Exam 05/10/2025 Diabetes: Hemoglobin A1C 08/01/2025 05/03/2025 Procedures Procedure Name Priority Date/Time Associated Diagnosis Comments CATECHOLAMINES, FRACTIONATED, PLASMA Routine 05/10/2025 3:06 PM EST Essential hypertension ALT EXT LABS Routine 05/03/2025 from Last 3 Months Results * (ABNORMAL) Catecholamines, fractionated, plasma (05/10/2025 3:06 PM EST) Epinephrine 104(A) pg/mL See orde r comments Comment: Reference Range: SUPINE: <58 UPRIGHT: <82 Norepinephrine 645 pg/mL See o rder comments Comment: Reference Range: SUPINE: 149-564 UPRIGHT: 199-937 Dopamine 27(A) pg/mL See order comments Comment: Reference Range: SUPINE: <16 UPRIGHT: <27 Catecholamines, Blood 742 pg/mL See order comments Comment: Reference Range: SUPINE: <632 UPRIGHT: <1046 Due to stress, plasma catecholamine levels are generally unreliable in infants and small children. Urinary catecholamine assays are more reliable. This test was developed and its analytical performance characteristics have been determined by [employer]. It has not been cleared or approved by the FDA. This assay has been validated pursuant to the CLIA regulations and is used for clinical purposes. THIS TEST WAS PERFORMED AT: [email or web address] [address] [place] [address] VALENTIN FRANCISCO MD,PHD,ANDERSON Blood Venous blood / Unknown 05/10/2025 3:06 PM EST 05/10/2025 3:06 PM EST us Bobby Ordonez MD LAB BLOOD ORDERABLES Final Re sult [place] See order comments [place] [address] * (ABNORMAL) ALT EXT LABS (05/03/2025) WBC 5.1 3.3 - 10.0 10*3/ML Red Blood Cell Count 5.22 Hemoglobin 15.3 13.5 - 17.5 Hematocrit 42.5 41.0 - 53.0 Platelets 148(A) 150 - 399 10*3/UL BUN 19 4 - 21 mg/dL Creatinine 1.01 0.60 - 1.30 mg/dL Albumin 4.8 3.5 - 5.0 g/dL Calcium 9.4 8.7 - 10.7 mg/dL Sodium 140 137 - 147 Potassium 3.9 3.4 - 5.5 Chloride 103.0 99.0 - 108.0 Hemoglobin A1C 6.7(A) 4.0 - 6.0 Spec Grav, UA 1.020 pH, UA 6.0 05/03/2025 us Historical Provider LAB BLOOD ORDERABLES Michelle l Result from Last 3 Months Insurance Care Teams Iron Miner Blasting Relationship Specialty Start Date End Date Cesia Shirley PA-C [address] [place] [phone] PCP - General Internal Medicine 04/09/25
== END 2025-05-28 15:49 | disposition home or self-care (01) ==
LOC: HO.HMCH 14:36
DX: I10 Essential (primary) hypertension (principal); E11.9 Type 2 diabetes mellitus without complications

== ENCOUNTER → 2025-05-28 14:35 | Outpatient (BNVA) | payer OTHER, SELFPAY | DX: I10 Essential (primary) hypertension (principal); E11.9 Type 2 diabetes mellitus without complications; Z82.49 Family history of ischemic heart disease and other diseases of the circulatory system; Z83.3 Family history of diabetes mellitus | CPT/HCPCS: 99212 ==